=== PATIENT | female | born 1975 | race African-American/Black ===

== ENCOUNTER 2016-10-31 12:27 | Inpatient (IN) | payer BC ==
[2016-10-31] MEDS: DILAUDID IVP PRN ×3 (14:21→22:15)
[2016-10-31] MEDS: PROTONIX INJ 40 MG VIAL IVP SCH (14:23)
[2016-10-31] MEDS: NS 1000 ML 1,000 ML IV SCH ×2 (14:24→21:48)
[2016-10-31] MEDS: PEPCID 20 MG IV PREMIX* 20 MG/50 ML BAG IV SCH ×2 (14:24→21:49)
[2016-10-31] MEDS: CIPRO IV 400 MG PREMIX* 400 MG/200 ML IV.SOLN. IV SCH ×2 (14:26→21:48)
[2016-10-31 14:36] VITALS: BMI 35.1
[2016-10-31] MEDS: ZOSYN VIAL 3.375 GM 3.375 GM in NS 100 ML IV + SPIKE MINIBAG* 100 ML IV SCH ×2 (14:44→23:13)
[2016-10-31 15:06] LABS: BASOPHILS # (AUTO) 0.1 X10^3/uL (0.0-0.1); BASOPHILS % (AUTO) 0.7 % (0.2-1.0); EOSINOPHILS % (AUTO) 0.4 % (0.9-2.9); HEMATOCRIT 32.1 % (36.0-47.0); HEMOGLOBIN 9.9 g/dL (12.0-16.0); LYMPHOCYTES # (AUTO) 1.8 X10^3/uL (1.3-2.9); LYMPHOCYTES % (AUTO) 14.2 % (21.0-51.0); MEAN CORPUSCULAR HEMOGLOBIN 21.8 pg (27.0-34.0); MEAN CORPUSCULAR HGB CONC 30.9 g/dL (33.0-35.0); MEAN CORPUSCULAR VOLUME 70.5 fL (80.0-100.0); MEAN PLATELET VOLUME 8.3 fL (7.4-11.0); MONOCYTES # (AUTO) 0.6 x10^3/uL (0.3-0.8); MONOCYTES % (AUTO) 5.1 % (0.0-13.0); NEUTROPHILS # (AUTO) 10.1 x10^3/uL (2.2-4.8); NEUTROPHILS % (AUTO) 79.6 % (42.0-75.0); PLATELET COUNT 377 X10^3/uL (150.0-450.0); RED BLOOD COUNT 4.56 X10^6/uL (3.5-5.4); RED CELL DISTRIBUTION WIDTH 15.9 % (11.6-16.5); WHITE BLOOD COUNT 12.6 X10^3/uL (3.6-10.0)
[2016-10-31 15:19] LABS: ALANINE AMINOTRANSFERASE 20 Units/L (12-78); ALBUMIN 3.4 g/dL (3.4-5.0); ALKALINE PHOSPHATASE 120 Units/L (46-116); ASPARTATE AMINO TRANSFERASE 12 Units/L (15-37); BLOOD UREA NITROGEN 22 mg/dL (7-18); CARBON DIOXIDE 26.4 mmol/L (21-32); CHLORIDE 95 mmol/L (98-107); COR NA(FOR HYPERGLY) 141 mmol/L (136-145); GLUCOSE 442 mg/dL (65-99); SODIUM 133 mmol/L (136-145); TOTAL PROTEIN 8.8 g/dL (6.4-8.2); eGFR BLACK RACES > 60 (>60); eGFR NON BLACK RACES 52 (>60)
[2016-10-31 15:22] LABS: HYPOCHROMASIA 1+; PLATELET MORPHOLOGY COMMENT NORMAL (NORMAL)
[2016-10-31 16:07] LABS: HEMOGLOBIN A1C 12.9 % (4.5-6.2)
[2016-10-31] MEDS: HUMULIN R SUBCUT PRN ×2 (16:41→23:12)
--- NOTE | 2016-10-31 17:04 | RAD ---
HISTORY: Shortness of breath Study: AP chest Comparison:NONE Findings: The lungs are clear. No consolidation. There are no pleural effusions. The rojas and cardiomediastinal silhouette appear normal. IMPRESSION: 1. No radiographic evidence of an acute cardiopulmonary process. Reported By:
[2016-10-31 19:20] LABS: BILIRUBIN,URINE NEGATIVE (NEGATIVE); BLOOD/HEMOGLOBIN,URINE 2+ (NEGATIVE); GLUCOSE, URINE 4+ (NEGATIVE); KETONES,URINE NEGATIVE (NEGATIVE); LEUKOCYTE ESTERASE ,URINE NEGATIVE (NEGATIVE); NITRITES,URINE NEGATIVE (NEGATIVE); PROTEIN,URINE 3+ (NEGATIVE); UROBILINOGEN,URINE NORMAL (NORMAL)
[2016-10-31 19:36] LABS: APPEARANCE,URINE CLEAR (CLEAR); COLOR,URINE YELLOW (YELLOW)
[2016-10-31 19:37] LABS: BACTERIA,URINE NEGATIVE /HPF (NEGATIVE); RBC,URINE RARE /HPF (NEGATIVE); SQUAMOUS EPITHELIAL CELL,UR FEW /HPF (NEGATIVE)
--- NOTE | 2016-10-31 20:36 | DR.UPDATE ---
H&P Update History and Physical Update: HISTORY AND PHYSICAL UPDATE FOR ADMISSION 10/31/16 MS. HOFFMAN'S H&P WAS COMPLETED IN OUR OFFICE PRIOR TO ARRIVAL. SHE HAS BEEN SEEN AND EXAMINED WITH NO CHANGES NOTED.
[2016-11-01] MEDS: DILAUDID IVP PRN ×5 (03:39→21:25)
[2016-11-01] MEDS: ZOSYN VIAL 3.375 GM 3.375 GM in NS 100 ML IV + SPIKE MINIBAG* 100 ML IV SCH ×3 (05:23→21:25)
[2016-11-01] MEDS: NS 1000 ML 1,000 ML IV SCH ×4 (05:24→21:31)
[2016-11-01] MEDS: HUMULIN R SUBCUT PRN ×2 (05:47→12:49)
[2016-11-01 05:50] LABS: BASOPHILS # (AUTO) 0.1 X10^3/uL (0.0-0.1); BASOPHILS % (AUTO) 0.8 % (0.2-1.0); EOSINOPHILS # (AUTO) 0.1 x10^3/uL (0.0-0.2); HEMOGLOBIN 8.5 g/dL (12.0-16.0); LYMPHOCYTES # (AUTO) 1.9 X10^3/uL (1.3-2.9); LYMPHOCYTES % (AUTO) 18.8 % (21.0-51.0); MEAN CORPUSCULAR HEMOGLOBIN 22.1 pg (27.0-34.0); MEAN CORPUSCULAR HGB CONC 31.4 g/dL (33.0-35.0); MEAN CORPUSCULAR VOLUME 70.5 fL (80.0-100.0); MEAN PLATELET VOLUME 8.4 fL (7.4-11.0); MONOCYTES # (AUTO) 0.8 x10^3/uL (0.3-0.8); MONOCYTES % (AUTO) 7.7 % (0.0-13.0); NEUTROPHILS # (AUTO) 7.2 x10^3/uL (2.2-4.8); NEUTROPHILS % (AUTO) 71.7 % (42.0-75.0); PLATELET COUNT 310 X10^3/uL (150.0-450.0); RED BLOOD COUNT 3.82 X10^6/uL (3.5-5.4); RED CELL DISTRIBUTION WIDTH 15.4 % (11.6-16.5)
[2016-11-01 05:51] LABS: ALANINE AMINOTRANSFERASE 13 Units/L (12-78); ALBUMIN 2.7 g/dL (3.4-5.0); ALKALINE PHOSPHATASE 92 Units/L (46-116); ASPARTATE AMINO TRANSFERASE 13 Units/L (15-37); BLOOD UREA NITROGEN 20 mg/dL (7-18); CALCIUM 8.3 mg/dL (8.5-10.1); CARBON DIOXIDE 26.1 mmol/L (21-32); CHLORIDE 104 mmol/L (98-107); COR CA(FOR HYPOALB) 9.3 mg/dL (8.5-10.1); COR NA(FOR HYPERGLY) 142 mmol/L (136-145); GLUCOSE 198 mg/dL (65-99); SODIUM 140 mmol/L (136-145); TOTAL PROTEIN 7.2 g/dL (6.4-8.2); eGFR BLACK RACES > 60 (>60); eGFR NON BLACK RACES 52 (>60)
[2016-11-01 06:10] LABS: HYPOCHROMASIA 1+; MICROCYTOSIS 1+; PLATELET MORPHOLOGY COMMENT NORMAL (NORMAL)
[2016-11-01] MEDS ORDERED: NS 100 ML IV 100 ML IV ONE (06:28)
--- NOTE | 2016-11-01 07:52 | CT ---
HISTORY: Left lower quadrant pain Study: CT abdomen pelvis with contrast Comparison: October 29, 2016 Technique: Axial post-contrast images with coronal and sagittal reformats. Dose reduction procedures were used with MA/kv adjusted for body size. Findings: The lung bases are clear. The liver, spleen, adrenal glands, and pancreas are within normal limits. No opaque stones are visualized in a dilated gallbladder. The kidneys are unobstructed and without s tones or masses. No ureteral calculi are identified. The appendix is surgically absent by history. T he abdominal aorta is normal. There are no enlarged intraperitoneal or retroperitoneal lymph nodes p resent. Nonenlarged para-aortic nodes are present. They are of uncertain etiology and significance. There are no findings suggestive of diverticulitis or colitis. Examination of the pelvis demonstrate s postsurgical changes to be present. Surgical clips and sutures are identified. There appears to be a complex cystic lesion in the left adnexum. This could represent a multi septated cystic lesion robles ch as a complicated cyst, cystadenoma or cystadenocarcinoma or could possibly represent a hydrosalpi nx. Postsurgical fluid loculation is also a possibility. Pelvic sonography and possibly MRI would be of further diagnostic value. No pelvic fluid or pelvic lymphadenopathy is identified. No definite b ladder abnormality is identified. No significant skeletal abnormality is identified. IMPRESSION: Ill-defined septated cystic lesion in the left adnexum possibly representing a complicated cyst, hyd rosalpinx, cyst adenoma, or cystadenocarcinoma. Postoperative fluid loculations are also possible co nsidering the evidence for prior pelvic surgery. Ultrasound may be of further diagnostic value. MRI may also be required for better evaluation of this lesion. Reported By:
[2016-11-01] MEDS: CIPRO IV 400 MG PREMIX* 400 MG/200 ML IV.SOLN. IV SCH ×2 (09:05→21:25)
[2016-11-01] MEDS: PROTONIX INJ 40 MG VIAL IVP SCH (09:05)
[2016-11-01] MEDS: PEPCID 20 MG IV PREMIX* 20 MG/50 ML BAG IV SCH ×2 (09:05→21:25)
--- NOTE | 2016-11-01 14:21 | PCM.PROG ---
Progress Note - Progress Note for Day of Date: 11/01/16 - Subjective Subjective: PATIENT CONTINUES WITH LLQ ABDOMINAL PAIN THIS MORNING. ABDOMEN IS SOFT, TENDER. PATIENT REPORTS ABDOMINAL PAIN CONTINUES TO BE SEVERE, RATING PAIN AN 8 ON A 1-TO-10 PAIN SCALE. PATIENT IS RECEIVING IV DILAUDID AND HAS RECEIVED IT 5 TIMES SINCE ADMISSION. SHE IS ALSO TREATED WITH IV CIPRO, ZOSYN, PEPCID, PROTONIX, ZOFRAN, AND IV FLUIDS. PATIENT HAD CT OF ABD/PELVIS WITH CONTRAST THIS MORNING AND IT REPORTS: ILL-DEFINED SEPTATED CYSTIC LESION IN THE LEFT ADNEXUM POSSIBLY REPRESENTING A COMPLICATED CYST, HYDROSALPINX, CYST ADENOMA, OR CYSTADENOCARCINOMA. WE DISCUSS REPORT WITH PATIENT WITH PLANS FOR MRI OF ABDOMEN. SHE VOICES UNDERSTANDING AND IS IN AGREEMENT. CBC WNL EXCEPT: H/H 8.5/27.0. CMP WNL EXCEPT: BUN/CREAT 20/1.20, GFR 52, GLUCOSE 198, CALCIUM 8.3, ALBUMIN 2.7. BLOOD CULTURES ARE PENDING. PATIENT AFEBRILE. WE WILL CONTINUE CURRENT TREATMENT AND OBTAIN AN MRI OF ABDOMEN TODAY. WE WILL FOLLOW UP IN AM WITH LABS. - Past Medical Family Social History Past Med/Fam/Surg Hx: No changes since H&P Allergies: Allergies No Known Drug Allergy Allergy (Verified 10/29/16 05:48) - Review of Systems ROS: No change since H&P - Vital Signs and I&O's Vital Signs: Temperature 98.4 F Pulse Rate [Right Brachial] 86 Pulse Rate [Left Brachial] 92 Respiratory Rate 18 Blood Pressure [Right Arm] 154/73 Blood Pressure [Left Arm] 173/80 Blood Pressure 141/72 O2 Sat by Pulse Oximetry 97 Intake and Output: Intake & Output 10/30/16 10/31/16 11/01/16 11/02/16 11:59 11:59 11:59 11:59 Intake Total 742 Output Total 1050 Balance -308 - Physical Exam Oriented: Normal, Time, Person, Place Eyes: Normal. negative: Blurred Vision, Diplopia, Discharge, Pain, Redness, Photophobia Ear: Normal. negative: Swelling, Ecchymosis, Hemotypanum, Abrasion, Laceration Nose: Normal. negative: Injected, Discharge, Blood Throat: Dry. negative: Tonsillar Hypertrophy, Exudate Respiratory: Normal Cardiovascular: Normal. negative: Murmur, Edema : Normal. negative: Dysuria, Hematuria, Frequency, Discharge, Bleeding, Auscultation: Bowel Sounds: Decreased. negative: Bruit Palpation: Normal. negative: Spleen Enlarged, Liver Enlarged, Mass Pulsatile Tenderness: LLQ, Severe. negative: Rebound, Guarding, Rigidity Skin: Decreased Turgur. negative: Diaphoresis, Wound, Bruising, Ecchymosis Musculoskeletal: Normal Psychiatric: Normal Mood Description: Calm, Appropriate Affect: Normal Speech Pattern: Clear, Appropriate - Laboratory and Diagnostics Result Diagrams: 11/01/16 03:25 11/01/16 03:25 Labs: Laboratory WBC 10.0 X10^3/uL (3.6-10.0) 11/01/16 03:25 RBC 3.82 X10^6/uL (3.5-5.4) 11/01/16 03:25 Hgb 8.5 g/dL (12.0-16.0) L 11/01/16 03:25 Hct 27.0 % (36.0-47.0) L 11/01/16 03:25 MCV 70.5 fL (80.0-100.0) L 11/01/16 03:25 MCH 22.1 pg (27.0-34.0) L 11/01/16 03:25 MCHC 31.4 g/dL (33.0-35.0) L 11/01/16 03:25 RDW 15.4 % (11.6-16.5) 11/01/16 03:25 Plt Count 310 X10^3/uL (150.0-450.0) 11/01/16 03:25 Plt Count Comment Adequate (ADEQUATE) 11/01/16 03:25 MPV 8.4 fL (7.4-11.0) 11/01/16 03:25 Neut % 71.7 % (42.0-75.0) 11/01/16 03:25 Lymph % 18.8 % (21.0-51.0) L 11/01/16 03:25 [place] % 7.7 % (0.0-13.0) 11/01/16 03:25 Eos % 1.0 % (0.9-2.9) 11/01/16 03:25 Baso % 0.8 % (0.2-1.0) 11/01/16 03:25 Neut # 7.2 x10^3/uL (2.2-4.8) H 11/01/16 03:25 Lymph # 1.9 X10^3/uL (1.3-2.9) 11/01/16 03:25 [place] # 0.8 x10^3/uL (0.3-0.8) 11/01/16 03:25 Eos # 0.1 x10^3/uL (0.0-0.2) 11/01/16 03:25 Baso # 0.1 X10^3/uL (0.0-0.1) 11/01/16 03:25 Absolute Nucleated RBC 0.0 /100WBC 11/01/16 03:25 Plt Morphology Comment Normal (NORMAL) 11/01/16 03:25 RBC Morphology Abnormal (NORMAL) A 11/01/16 03:25 Hypochromasia 1+ A 11/01/16 03:25 Microcytosis 1+ A 11/01/16 03:25 Sodium 140 mmol/L (136-145) 11/01/16 03:25 Corrected Sodium 142 mmol/L (136-145) 11/01/16 03:25 Potassium 3.6 mmol/L (3.5-5.1) 11/01/16 03:25 Chloride 104 mmol/L (98-107) 11/01/16 03:25 Carbon Dioxide 26.1 mmol/L (21-32) 11/01/16 03:25 BUN 20 mg/dL (7-18) H 11/01/16 03:25 Creatinine 1.20 mg/dL (0.55-1.02) H 11/01/16 03:25 Est GFR (MDRD) Af Amer > 60 (>60) 11/01/16 03:25 Est GFR (MDRD) Non-Af 52 (>60) L 11/01/16 03:25 Glucose 198 mg/dL (65-99) H 11/01/16 03:25 Hemoglobin A1c 12.9 % (4.5-6.2) H 10/31/16 14:30 Calcium 8.3 mg/dL (8.5-10.1) L 11/01/16 03:25 Corrected Calcium 9.3 mg/dL (8.5-10.1) 11/01/16 03:25 Total Bilirubin 0.30 mg/dL (0.2-1.0) 11/01/16 03:25 AST 13 Units/L (15-37) L 11/01/16 03:25 ALT 13 Units/L (12-78) 11/01/16 03:25 Alkaline Phosphatase 92 Units/L (46-116) 11/01/16 03:25 Total Protein 7.2 g/dL (6.4-8.2) 11/01/16 03:25 Albumin 2.7 g/dL (3.4-5.0) L 11/01/16 03:25 Globulin 4.5 g/dL (2.5-4.5) 11/01/16 03:25 Albumin/Globulin Ratio 0.6 Ratio (1.1-2.1) L 11/01/16 03:25 Specimen Type Clean catch urine 10/31/16 19:12 Urine Color Yellow (YELLOW) 10/31/16 19:12 Urine Appearance Clear (CLEAR) 10/31/16 19:12 Urine pH 5.0 (5.0 - 8.0) 10/31/16 19:12 Ur Specific [place] 1.015 (1.000-1.030) 10/31/16 19:12 Urine Protein 3+ (NEGATIVE) 10/31/16 19:12 Urine Glucose (UA) 4+ (NEGATIVE) 10/31/16 19:12 Urine Ketones Negative (NEGATIVE) 10/31/16 19:12 Urine Occult Blood 2+ (NEGATIVE) 10/31/16 19:12 Urine Nitrite Negative (NEGATIVE) 10/31/16 19:12 Urine Bilirubin Negative (NEGATIVE) 10/31/16 19:12 Urine Urobilinogen Normal (NORMAL) 10/31/16 19:12 Ur Leukocyte Esterase Negative (NEGATIVE) 10/31/16 19:12 Urine RBC Rare /HPF (NEGATIVE) 10/31/16 19:12 Urine WBC Rare /HPF (NEGATIVE) 10/31/16 19:12 Ur Squamous Epith Cells Few /HPF (NEGATIVE) 10/31/16 19:12 Urine Bacteria Negative /HPF (NEGATIVE) 10/31/16 19:12 Ur Culture Indicated? No/not indicated 10/31/16 19:12 - Plan (1) Abdominal pain Status: Acute Qualifiers: Abdominal location: left lower quadrant Qualified Code(s): R10.32 - Left lower quadrant pain Plan: OBTAIN MRI OF ABDOMEN TODAY, CONTINUE ZOSYN, CIPRO, IV FLUIDS, DILAUDID, ZOFRAN, PEPCID, PROTONIX, MONITOR. (2) Leukocytosis Status: Acute Qualifiers: Leukocytosis type: L Plan: ABOVE. (3) Hyperglycemia Status: Acute Plan: CONTINUE OTBS, INSULIN R SLIDING SCALE, MONITOR. (4) Ovarian cyst Status: Acute Qualifiers: Laterality: left Qualified Code(s): N83.202 - Unspecified ovarian cyst, left side (5) UTI (urinary tract infection) Status: Acute Qualifiers: Urinary tract infection type: acute cystitis Hematuria presence: with hematuria Indwelling urinary catheter type: I Encounter type: E Qualified Code(s): N30.01 - Acute cystitis with hematuria Plan: CONTINUE IV ANTIBIOTICS, MONITOR. 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
[2016-11-01] MEDS: ZOFRAN INJ 4 MG VIAL IVP PRN (21:26)
[2016-11-02] MEDS: ZOFRAN INJ 4 MG VIAL IVP PRN (01:46)
[2016-11-02] MEDS: DILAUDID IVP PRN ×5 (01:47→21:47)
[2016-11-02 05:22] LABS: BASOPHILS # (AUTO) 0.1 X10^3/uL (0.0-0.1); BASOPHILS % (AUTO) 1.3 % (0.2-1.0); EOSINOPHILS # (AUTO) 0.2 x10^3/uL (0.0-0.2); EOSINOPHILS % (AUTO) 1.8 % (0.9-2.9); HEMATOCRIT 27.4 % (36.0-47.0); HEMOGLOBIN 8.6 g/dL (12.0-16.0); LYMPHOCYTES # (AUTO) 1.8 X10^3/uL (1.3-2.9); MEAN CORPUSCULAR HEMOGLOBIN 22.4 pg (27.0-34.0); MEAN CORPUSCULAR HGB CONC 31.4 g/dL (33.0-35.0); MEAN CORPUSCULAR VOLUME 71.2 fL (80.0-100.0); MEAN PLATELET VOLUME 8.5 fL (7.4-11.0); MONOCYTES # (AUTO) 0.5 x10^3/uL (0.3-0.8); MONOCYTES % (AUTO) 6.3 % (0.0-13.0); NEUTROPHILS % (AUTO) 69.6 % (42.0-75.0); PLATELET COUNT 316 X10^3/uL (150.0-450.0); RED BLOOD COUNT 3.85 X10^6/uL (3.5-5.4); RED CELL DISTRIBUTION WIDTH 16.2 % (11.6-16.5); WHITE BLOOD COUNT 8.6 X10^3/uL (3.6-10.0)
[2016-11-02] MEDS: NS 1000 ML 1,000 ML IV SCH ×3 (05:25→21:46)
[2016-11-02] MEDS: ZOSYN VIAL 3.375 GM 3.375 GM in NS 100 ML IV + SPIKE MINIBAG* 100 ML IV SCH ×3 (05:26→21:46)
[2016-11-02 05:34] LABS: ALANINE AMINOTRANSFERASE 16 Units/L (12-78); ALBUMIN 2.5 g/dL (3.4-5.0); ALKALINE PHOSPHATASE 80 Units/L (46-116); ASPARTATE AMINO TRANSFERASE 10 Units/L (15-37); BLOOD UREA NITROGEN 11 mg/dL (7-18); CALCIUM 8.3 mg/dL (8.5-10.1); CHLORIDE 108 mmol/L (98-107); COR CA(FOR HYPOALB) 9.5 mg/dL (8.5-10.1); COR NA(FOR HYPERGLY) 144 mmol/L (136-145); CREATININE 0.89 mg/dL (0.55-1.02); GLUCOSE 134 mg/dL (65-99); SODIUM 143 mmol/L (136-145); TOTAL PROTEIN 6.9 g/dL (6.4-8.2); eGFR BLACK RACES > 60 (>60); eGFR NON BLACK RACES > 60 (>60)
[2016-11-02 06:13] LABS: PLATELET MORPHOLOGY COMMENT NORMAL (NORMAL)
[2016-11-02 06:14] LABS: HYPOCHROMASIA 1+; MICROCYTOSIS 1+
[2016-11-02] MEDS: PROTONIX INJ 40 MG VIAL IVP SCH (08:37)
[2016-11-02] MEDS: PEPCID 20 MG IV PREMIX* 20 MG/50 ML BAG IV SCH ×2 (08:37→21:47)
[2016-11-02] MEDS: CIPRO IV 400 MG PREMIX* 400 MG/200 ML IV.SOLN. IV SCH ×2 (08:37→21:46)
--- NOTE | 2016-11-02 14:49 | MRI ---
MRI OF THE PELVIS WITHOUT AND WITH IV CONTRAST Clinical indication: Left adnexal lesion Procedure: Multiplanar multi sequence MRI of the pelvis was obtained with and without the administra tion of intravenous contrast according to standard departmental protocol. Comparisons: CT 11/01/2016, 10/29/2016, 11/21/2014. Ultrasound 10/29/2016 Findings: The uterus has multiple small fibroids within it. The endometrial stripe measures approximately 9 mm . Right ovary is grossly normal. The left ovary contains multiple cystic structures of differing sig nal intensity, 1 of which demonstrates intermediate intrinsic T1 signal . Overall the left ovary sena sures approximately 4.8 x 3.8 cm on series 1201, image 6 . Additionally there is adjacent somewhat l oculated pelvic fluid surrounding the right ovary. This measures approximately 10.1 x 4.9 cm on seri es 701, image 3. Impression: 1. Multi-cystic lesion involving the left ovary with varying degrees signal intensity. Epithelial ne oplasm such as mucinous cystadenoma is suspected. Surrounding loculated fluid may represent a the in clusion cyst which is associated with mucinous cystadenoma. Reported By:
--- NOTE | 2016-11-02 16:29 | PCM.PROG ---
Progress Note - Progress Note for Day of Date: 11/02/16 - Subjective Subjective: MRI OF PELVIS WAS OBTAINED AND REPORTS MULTI-CYSTIC LESION INVOLVING THE LEFT OVARY WITH VARYING DEGREES SIGNAL INTENSITY. PATIENT CONTINUES WITH LLQ ABDOMINAL PAIN THIS MORNING AND CONTINUES TO REQUIRE IV PAIN MEDICATION TO CONTROL PAIN. ABDOMEN IS SOFT, TENDER. CBC WNL EXCEPT: H/H 8.6/ 27.4. CMP WNL EXCEPT: CHL 108, GLUCOSE 134, CALCIUM 8.3, ALBUMIN 2.5. PRELIMINARY BLOOD CULTURES REPORT NO GROWTH. PATIENT AFEBRILE. WE WILL CONTINUE CURRENT TREATMENT AND FOLLOW UP IN AM WITH LABS. WE WILL START PATIENT ON A CLEAR LIQUID DIET AND MONITOR HOW WELL SHE TOLERATES IT. - Past Medical Family Social History Past Med/Fam/Surg Hx: No changes since H&P Allergies: Allergies No Known Drug Allergy Allergy (Verified 10/29/16 05:48) - Review of Systems ROS: No change since H&P - Vital Signs and I&O's Vital Signs: Temperature 98.3 F Pulse Rate [Right Brachial] 80 Pulse Rate [Left Brachial] 92 Respiratory Rate 20 Blood Pressure [Right Arm] 143/65 Blood Pressure [Left Arm] 173/80 Blood Pressure 141/72 O2 Sat by Pulse Oximetry 100 Intake and Output: Intake & Output 10/31/16 11/01/16 11/02/16 11/03/16 11:59 11:59 11:59 11:59 Intake Total 241 879 6353 Output Total 1050 1100 600 Balance -236 -471 1563 - Physical Exam Oriented: Normal, Time, Person, Place Eyes: Normal. negative: Blurred Vision, Diplopia, Discharge, Pain, Redness, Photophobia Ear: Normal. negative: Swelling, Ecchymosis, Hemotypanum, Abrasion, Laceration Nose: Normal. negative: Injected, Discharge, Blood Throat: Dry. negative: Tonsillar Hypertrophy, Exudate Respiratory: Normal Cardiovascular: Normal. negative: Murmur, Edema : Normal. negative: Dysuria, Hematuria, Frequency, Discharge, Bleeding, Auscultation: Bowel Sounds: Decreased. negative: Bruit Palpation: Normal. negative: Spleen Enlarged, Liver Enlarged, Mass Pulsatile Tenderness: LLQ, Moderate. negative: Rebound, Guarding, Rigidity Skin: Decreased Turgur. negative: Diaphoresis, Wound, Bruising, Ecchymosis Musculoskeletal: Normal Psychiatric: Normal Mood Description: Calm, Appropriate Affect: Normal Speech Pattern: Clear, Appropriate - Laboratory and Diagnostics Result Diagrams: 11/02/16 03:30 11/02/16 03:30 Labs: 10/31/16 14:30 Blood Blood Culture - Preliminary 10/31/16 14:45 Blood Blood Culture - Preliminary Laboratory WBC 8.6 X10^3/uL (3.6-10.0) 11/02/16 03:30 RBC 3.85 X10^6/uL (3.5-5.4) 11/02/16 03:30 Hgb 8.6 g/dL (12.0-16.0) L 11/02/16 03:30 Hct 27.4 % (36.0-47.0) L 11/02/16 03:30 MCV 71.2 fL (80.0-100.0) L 11/02/16 03:30 MCH 22.4 pg (27.0-34.0) L 11/02/16 03:30 MCHC 31.4 g/dL (33.0-35.0) L 11/02/16 03:30 RDW 16.2 % (11.6-16.5) 11/02/16 03:30 Plt Count 316 X10^3/uL (150.0-450.0) 11/02/16 03:30 Plt Count Comment Adequate (ADEQUATE) 11/02/16 03:30 MPV 8.5 fL (7.4-11.0) 11/02/16 03:30 Neut % 69.6 % (42.0-75.0) 11/02/16 03:30 Lymph % 21.0 % (21.0-51.0) 11/02/16 03:30 [place] % 6.3 % (0.0-13.0) 11/02/16 03:30 Eos % 1.8 % (0.9-2.9) 11/02/16 03:30 Baso % 1.3 % (0.2-1.0) H 11/02/16 03:30 Neut # 6.0 x10^3/uL (2.2-4.8) H 11/02/16 03:30 Lymph # 1.8 X10^3/uL (1.3-2.9) 11/02/16 03:30 [place] # 0.5 x10^3/uL (0.3-0.8) 11/02/16 03:30 Eos # 0.2 x10^3/uL (0.0-0.2) 11/02/16 03:30 Baso # 0.1 X10^3/uL (0.0-0.1) 11/02/16 03:30 Absolute Nucleated RBC 0.0 /100WBC 11/02/16 03:30 Plt Morphology Comment Normal (NORMAL) 11/02/16 03:30 RBC Morphology Abnormal (NORMAL) A 11/02/16 03:30 Hypochromasia 1+ A 11/02/16 03:30 Microcytosis 1+ A 11/02/16 03:30 Sodium 143 mmol/L (136-145) 11/02/16 03:30 Corrected Sodium 144 mmol/L (136-145) 11/02/16 03:30 Potassium 3.6 mmol/L (3.5-5.1) 11/02/16 03:30 Chloride 108 mmol/L (98-107) H 11/02/16 03:30 Carbon Dioxide 24.0 mmol/L (21-32) 11/02/16 03:30 BUN 11 mg/dL (7-18) 11/02/16 03:30 Creatinine 0.89 mg/dL (0.55-1.02) 11/02/16 03:30 Est GFR (MDRD) Af Amer > 60 (>60) 11/02/16 03:30 Est GFR (MDRD) Non-Af > 60 (>60) 11/02/16 03:30 Glucose 134 mg/dL (65-99) H 11/02/16 03:30 Hemoglobin A1c 12.9 % (4.5-6.2) H 10/31/16 14:30 Calcium 8.3 mg/dL (8.5-10.1) L 11/02/16 03:30 Corrected Calcium 9.5 mg/dL (8.5-10.1) 11/02/16 03:30 Total Bilirubin 0.20 mg/dL (0.2-1.0) 11/02/16 03:30 AST 10 Units/L (15-37) L 11/02/16 03:30 ALT 16 Units/L (12-78) 11/02/16 03:30 Alkaline Phosphatase 80 Units/L (46-116) 11/02/16 03:30 Total Protein 6.9 g/dL (6.4-8.2) 11/02/16 03:30 Albumin 2.5 g/dL (3.4-5.0) L 11/02/16 03:30 Globulin 4.4 g/dL (2.5-4.5) 11/02/16 03:30 Albumin/Globulin Ratio 0.6 Ratio (1.1-2.1) L 11/02/16 03:30 Specimen Type Clean catch urine 10/31/16 19:12 Urine Color Yellow (YELLOW) 10/31/16 19:12 Urine Appearance Clear (CLEAR) 10/31/16 19:12 Urine pH 5.0 (5.0 - 8.0) 10/31/16 19:12 Ur Specific [place] 1.015 (1.000-1.030) 10/31/16 19:12 Urine Protein 3+ (NEGATIVE) 10/31/16 19:12 Urine Glucose (UA) 4+ (NEGATIVE) 10/31/16 19:12 Urine Ketones Negative (NEGATIVE) 10/31/16 19:12 Urine Occult Blood 2+ (NEGATIVE) 10/31/16 19:12 Urine Nitrite Negative (NEGATIVE) 10/31/16 19:12 Urine Bilirubin Negative (NEGATIVE) 10/31/16 19:12 Urine Urobilinogen Normal (NORMAL) 10/31/16 19:12 Ur Leukocyte Esterase Negative (NEGATIVE) 10/31/16 19:12 Urine RBC Rare /HPF (NEGATIVE) 10/31/16 19:12 Urine WBC Rare /HPF (NEGATIVE) 10/31/16 19:12 Ur Squamous Epith Cells Few /HPF (NEGATIVE) 10/31/16 19:12 Urine Bacteria Negative /HPF (NEGATIVE) 10/31/16 19:12 Ur Culture Indicated? No/not indicated 10/31/16 19:12 - Plan (1) Abdominal pain Status: Acute Qualifiers: Abdominal location: left lower quadrant Qualified Code(s): R10.32 - Left lower quadrant pain Plan: CONTINUE ZOSYN, CIPRO, IV FLUIDS, DILAUDID, ZOFRAN, PEPCID, PROTONIX, MONITOR. (2) Leukocytosis Status: Acute Qualifiers: Leukocytosis type: L Plan: ABOVE. (3) Hyperglycemia Status: Acute Plan: CONTINUE OTBS, INSULIN R SLIDING SCALE, MONITOR. (4) Ovarian cyst Status: Acute Qualifiers: Laterality: left Qualified Code(s): N83.202 - Unspecified ovarian cyst, left side (5) UTI (urinary tract infection) Status: Acute Qualifiers: Urinary tract infection type: acute cystitis Hematuria presence: with hematuria Indwelling urinary catheter type: I Encounter type: E Qualified Code(s): N30.01 - Acute cystitis with hematuria Plan: CONTINUE IV ANTIBIOTICS, MONITOR. 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
[2016-11-02] MEDS: SNACK - Diabetic Appropriate PO SCH (20:00)
[2016-11-03 05:49] LABS: ALANINE AMINOTRANSFERASE 17 Units/L (12-78); ALBUMIN 2.4 g/dL (3.4-5.0); ALKALINE PHOSPHATASE 78 Units/L (46-116); ASPARTATE AMINO TRANSFERASE 11 Units/L (15-37); BLOOD UREA NITROGEN 6 mg/dL (7-18); CALCIUM 8.2 mg/dL (8.5-10.1); CARBON DIOXIDE 25.1 mmol/L (21-32); CHLORIDE 107 mmol/L (98-107); COR CA(FOR HYPOALB) 9.5 mg/dL (8.5-10.1); CREATININE 0.84 mg/dL (0.55-1.02); GLUCOSE 100 mg/dL (65-99); SODIUM 141 mmol/L (136-145); TOTAL PROTEIN 6.9 g/dL (6.4-8.2); eGFR BLACK RACES > 60 (>60); eGFR NON BLACK RACES > 60 (>60)
[2016-11-03] MEDS: NS 1000 ML 1,000 ML IV SCH ×3 (06:12→21:56)
[2016-11-03] MEDS: ZOSYN VIAL 3.375 GM 3.375 GM in NS 100 ML IV + SPIKE MINIBAG* 100 ML IV SCH ×3 (06:13→21:56)
[2016-11-03 06:14] LABS: BASOPHILS # (AUTO) 0.1 X10^3/uL (0.0-0.1); BASOPHILS % (AUTO) 0.9 % (0.2-1.0); EOSINOPHILS # (AUTO) 0.2 x10^3/uL (0.0-0.2); EOSINOPHILS % (AUTO) 2.4 % (0.9-2.9); HEMATOCRIT 27.8 % (36.0-47.0); HEMOGLOBIN 8.6 g/dL (12.0-16.0); LYMPHOCYTES # (AUTO) 1.9 X10^3/uL (1.3-2.9); LYMPHOCYTES % (AUTO) 22.6 % (21.0-51.0); MEAN CORPUSCULAR HEMOGLOBIN 22.1 pg (27.0-34.0); MEAN CORPUSCULAR VOLUME 71.2 fL (80.0-100.0); MEAN PLATELET VOLUME 8.4 fL (7.4-11.0); MONOCYTES # (AUTO) 0.4 x10^3/uL (0.3-0.8); MONOCYTES % (AUTO) 4.8 % (0.0-13.0); NEUTROPHILS % (AUTO) 69.3 % (42.0-75.0); PLATELET COUNT 332 X10^3/uL (150.0-450.0); RED CELL DISTRIBUTION WIDTH 15.9 % (11.6-16.5); WHITE BLOOD COUNT 8.6 X10^3/uL (3.6-10.0)
[2016-11-03 06:41] LABS: HYPOCHROMASIA 1+; PLATELET MORPHOLOGY COMMENT NORMAL (NORMAL)
[2016-11-03] MEDS ORDERED: K-LYTE EFFERVESCENT PO PRN (06:44)
[2016-11-03] MEDS ORDERED: K-DUR TAB 20 MEQ PO PRN (06:44)
[2016-11-03] MEDS ORDERED: POTASSIUM CHLORIDE LIQ 20 MEQ UDC PO PRN (06:44)
[2016-11-03] MEDS ORDERED: K-RIDER 10 MEQ/NS 100 ML 10 MEQ/100 ML BAG IV PRN (06:44)
[2016-11-03] MEDS: DILAUDID IVP PRN ×3 (07:25→20:29)
[2016-11-03] MEDS: PEPCID 20 MG IV PREMIX* 20 MG/50 ML BAG IV SCH ×2 (08:37→21:55)
[2016-11-03] MEDS: PROTONIX INJ 40 MG VIAL IVP SCH (08:37)
[2016-11-03] MEDS: CIPRO IV 400 MG PREMIX* 400 MG/200 ML IV.SOLN. IV SCH ×2 (08:37→21:55)
[2016-11-03] MEDS: ALBUMIN HUMAN 25%- 100ML 100 ML IV SCH (11:19)
[2016-11-03] MEDS: COLACE CAP 100 MG PO SCH ×2 (11:20→21:57)
[2016-11-03] MEDS: MILK OF MAGNESIA PO SCH ×4 (11:20→21:55)
[2016-11-03] MEDS ORDERED: MIRALAX POWDER (1 DOSE 17GM) PO SCH (21:00)
[2016-11-03] MEDS: SNACK - Diabetic Appropriate PO SCH (21:57)
[2016-11-04] MEDS: DILAUDID IVP PRN ×5 (00:37→17:30)
[2016-11-04] MEDS ORDERED: VALIUM PO PRN (01:10)
[2016-11-04] MEDS: ZOSYN VIAL 3.375 GM 3.375 GM in NS 100 ML IV + SPIKE MINIBAG* 100 ML IV SCH ×2 (05:01→13:36)
[2016-11-04] MEDS: NS 1000 ML 1,000 ML IV SCH (05:08)
[2016-11-04 06:12] LABS: BASOPHILS # (AUTO) 0.1 X10^3/uL (0.0-0.1); BASOPHILS % (AUTO) 0.8 % (0.2-1.0); EOSINOPHILS # (AUTO) 0.2 x10^3/uL (0.0-0.2); EOSINOPHILS % (AUTO) 1.8 % (0.9-2.9); HEMATOCRIT 27.9 % (36.0-47.0); HEMOGLOBIN 8.8 g/dL (12.0-16.0); LYMPHOCYTES # (AUTO) 1.4 X10^3/uL (1.3-2.9); LYMPHOCYTES % (AUTO) 15.2 % (21.0-51.0); MEAN CORPUSCULAR HEMOGLOBIN 22.4 pg (27.0-34.0); MEAN CORPUSCULAR HGB CONC 31.7 g/dL (33.0-35.0); MEAN CORPUSCULAR VOLUME 70.6 fL (80.0-100.0); MEAN PLATELET VOLUME 8.1 fL (7.4-11.0); MONOCYTES # (AUTO) 0.4 x10^3/uL (0.3-0.8); MONOCYTES % (AUTO) 4.3 % (0.0-13.0); NEUTROPHILS # (AUTO) 7.4 x10^3/uL (2.2-4.8); NEUTROPHILS % (AUTO) 77.9 % (42.0-75.0); PLATELET COUNT 359 X10^3/uL (150.0-450.0); RED BLOOD COUNT 3.95 X10^6/uL (3.5-5.4); RED CELL DISTRIBUTION WIDTH 15.8 % (11.6-16.5); WHITE BLOOD COUNT 9.5 X10^3/uL (3.6-10.0)
[2016-11-04 06:33] LABS: ALANINE AMINOTRANSFERASE 20 Units/L (12-78); ALBUMIN 2.4 g/dL (3.4-5.0); ALKALINE PHOSPHATASE 82 Units/L (46-116); ASPARTATE AMINO TRANSFERASE 17 Units/L (15-37); BLOOD UREA NITROGEN 4 mg/dL (7-18); CALCIUM 8.1 mg/dL (8.5-10.1); CARBON DIOXIDE 25.3 mmol/L (21-32); CHLORIDE 104 mmol/L (98-107); COR CA(FOR HYPOALB) 9.4 mg/dL (8.5-10.1); COR NA(FOR HYPERGLY) 139 mmol/L (136-145); CREATININE 0.74 mg/dL (0.55-1.02); GLUCOSE 167 mg/dL (65-99); SODIUM 137 mmol/L (136-145); TOTAL PROTEIN 6.8 g/dL (6.4-8.2); eGFR BLACK RACES > 60 (>60); eGFR NON BLACK RACES > 60 (>60)
[2016-11-04 07:35] LABS: HYPOCHROMASIA 1+; PLATELET MORPHOLOGY COMMENT NORMAL (NORMAL)
[2016-11-04] MEDS: PROTONIX INJ 40 MG VIAL IVP SCH (08:46)
[2016-11-04] MEDS: MILK OF MAGNESIA PO SCH ×3 (08:46→17:17)
[2016-11-04] MEDS: COLACE CAP 100 MG PO SCH (08:46)
[2016-11-04] MEDS: PEPCID 20 MG IV PREMIX* 20 MG/50 ML BAG IV SCH (08:46)
[2016-11-04] MEDS: ALBUMIN HUMAN 25%- 100ML 100 ML IV SCH (08:47)
[2016-11-04] MEDS: CIPRO IV 400 MG PREMIX* 400 MG/200 ML IV.SOLN. IV SCH (08:47)
[2016-11-04] MEDS: ZOFRAN INJ 4 MG VIAL IVP PRN (13:37)
--- NOTE | 2016-11-04 13:49 | RAD ---
HISTORY: 41-year-old female with constipation and abdominal pain. Study: Abdominal radiographs. Comparison: CT abdomen pelvis November 01, 2016. Findings: Evaluation of the abdomen demonstrates a nonobstructive bowel gas pattern with stool and gas through out the colon. Retained contrast within the rectal wall consistent with recent CT. No pathological soft tissue mass or calcification can be observed. The bony structures are grossly intact. IMPRESSION: 1. Nonobstructive bowel gas pattern. Reported By:
[2016-11-04 16:01] VITALS: BP 186/83
--- NOTE | 2016-11-04 16:25 | PCM.PROG ---
Progress Note - Progress Note for Day of Date: 11/03/16 - Subjective Subjective: PATIENT CONTINUES WITH SEVERE LLQ ABDOMINAL PAIN THIS MORNING AND CONTINUES TO REQUIRE IV PAIN MEDICATION TO CONTROL PAIN. ABDOMEN IS SOFT, TENDER. PATIENT IS NOT TOLERATING FOOD WELL. WE DISCUSSED MRI REPORT WITH POSSIBILITY OF A CANCEROUS CYST ON THE LEFT OVARY WITH PLANS TO CONSULT DR. HYATT, ONCOLOGY. PATIENT VOICES UNDERSTANDING AND IS IN AGREEMENT WITH PLANS. CBC WNL EXCEPT: H/H 8.6/27.8. CMP WNL EXCEPT: POTASSIUM 3.4, GLUCOSE 100, CALCIUM 8.2, ALBUMIN 2.4. PATIENT AFEBRILE. PATIENT HASN'T HAD A BOWEL MOVEMENT IN SEVERAL DAYS, SO WE WILL START MIRALAX, MILK OF MAGNESIA, AND COLACE. WE WILL ALSO START ALBUMIN, DECREASE IV FLUIDS TO 75MLS/HR, CONSULT DR. HYATT, AND OBTAIN A CA-125. WE WILL CONTINUE TO MONITOR AND FOLLOW UP IN AM WITH LABS. - Past Medical Family Social History Past Med/Fam/Surg Hx: No changes since H&P Allergies: Allergies No Known Drug Allergy Allergy (Verified 10/29/16 05:48) - Review of Systems ROS: No change since H&P - Vital Signs and I&O's Vital Signs: Temperature 98.1 F Pulse Rate [Right Brachial] 82 Pulse Rate [Left Brachial] 75 Respiratory Rate 20 Blood Pressure [Right Arm] 186/83 Blood Pressure [Left Arm] 141/73 Blood Pressure 141/72 O2 Sat by Pulse Oximetry 97 Intake and Output: Intake & Output 11/02/16 11/03/16 11/04/16 11/05/16 11:59 11:59 11:59 11:59 Intake Total 415 6934 4751 1550 Output Total 1100 1350 1400 Balance -688 9772 4453 1550 - Physical Exam Oriented: Normal, Time, Person, Place Eyes: Normal. negative: Blurred Vision, Diplopia, Discharge, Pain, Redness, Photophobia Ear: Normal. negative: Swelling, Ecchymosis, Hemotypanum, Abrasion, Laceration Nose: Normal. negative: Injected, Discharge, Blood Throat: Dry. negative: Tonsillar Hypertrophy, Exudate Respiratory: Normal Cardiovascular: Normal. negative: Murmur, Edema : Normal. negative: Dysuria, Hematuria, Frequency, Discharge, Bleeding, Auscultation: Bowel Sounds: Decreased. negative: Bruit Palpation: Normal. negative: Spleen Enlarged, Liver Enlarged, Mass Pulsatile Tenderness: LLQ, Severe. negative: Rebound, Guarding, Rigidity Skin: Normal. negative: Diaphoresis, Wound, Bruising, Ecchymosis Musculoskeletal: Normal Psychiatric: Normal Mood Description: Calm, Appropriate Affect: Normal Speech Pattern: Clear, Appropriate - Laboratory and Diagnostics Result Diagrams: 11/04/16 05:30 11/04/16 05:30 Labs: 10/31/16 14:30 Blood Blood Culture - Preliminary 10/31/16 14:45 Blood Blood Culture - Preliminary Laboratory WBC 9.5 X10^3/uL (3.6-10.0) 11/04/16 05:30 RBC 3.95 X10^6/uL (3.5-5.4) 11/04/16 05:30 Hgb 8.8 g/dL (12.0-16.0) L 11/04/16 05:30 Hct 27.9 % (36.0-47.0) L 11/04/16 05:30 MCV 70.6 fL (80.0-100.0) L 11/04/16 05:30 MCH 22.4 pg (27.0-34.0) L 11/04/16 05:30 MCHC 31.7 g/dL (33.0-35.0) L 11/04/16 05:30 RDW 15.8 % (11.6-16.5) 11/04/16 05:30 Plt Count 359 X10^3/uL (150.0-450.0) 11/04/16 05:30 Plt Count Comment Adequate (ADEQUATE) 11/04/16 05:30 MPV 8.1 fL (7.4-11.0) 11/04/16 05:30 Neut % 77.9 % (42.0-75.0) H 11/04/16 05:30 Lymph % 15.2 % (21.0-51.0) L 11/04/16 05:30 [place] % 4.3 % (0.0-13.0) 11/04/16 05:30 Eos % 1.8 % (0.9-2.9) 11/04/16 05:30 Baso % 0.8 % (0.2-1.0) 11/04/16 05:30 Neut # 7.4 x10^3/uL (2.2-4.8) H 11/04/16 05:30 Lymph # 1.4 X10^3/uL (1.3-2.9) 11/04/16 05:30 [place] # 0.4 x10^3/uL (0.3-0.8) 11/04/16 05:30 Eos # 0.2 x10^3/uL (0.0-0.2) 11/04/16 05:30 Baso # 0.1 X10^3/uL (0.0-0.1) 11/04/16 05:30 Absolute Nucleated RBC 0.0 /100WBC 11/04/16 05:30 Plt Morphology Comment Normal (NORMAL) 11/04/16 05:30 RBC Morphology Abnormal (NORMAL) A 11/04/16 05:30 Hypochromasia 1+ A 11/04/16 05:30 Microcytosis 1+ A 11/02/16 03:30 Sodium 137 mmol/L (136-145) 11/04/16 05:30 Corrected Sodium 139 mmol/L (136-145) 11/04/16 05:30 Potassium 3.5 mmol/L (3.5-5.1) 11/04/16 05:30 Chloride 104 mmol/L (98-107) 11/04/16 05:30 Carbon Dioxide 25.3 mmol/L (21-32) 11/04/16 05:30 BUN 4 mg/dL (7-18) L 11/04/16 05:30 Creatinine 0.74 mg/dL (0.55-1.02) 11/04/16 05:30 Est GFR (MDRD) Af Amer > 60 (>60) 11/04/16 05:30 Est GFR (MDRD) Non-Af > 60 (>60) 11/04/16 05:30 Glucose 167 mg/dL (65-99) H 11/04/16 05:30 Hemoglobin A1c 12.9 % (4.5-6.2) H 10/31/16 14:30 Calcium 8.1 mg/dL (8.5-10.1) L 11/04/16 05:30 Corrected Calcium 9.4 mg/dL (8.5-10.1) 11/04/16 05:30 Total Bilirubin 0.20 mg/dL (0.2-1.0) 11/04/16 05:30 AST 17 Units/L (15-37) 11/04/16 05:30 ALT 20 Units/L (12-78) 11/04/16 05:30 Alkaline Phosphatase 82 Units/L (46-116) 11/04/16 05:30 Total Protein 6.8 g/dL (6.4-8.2) 11/04/16 05:30 Albumin 2.4 g/dL (3.4-5.0) L 11/04/16 05:30 Globulin 4.4 g/dL (2.5-4.5) 11/04/16 05:30 Albumin/Globulin Ratio 0.5 Ratio (1.1-2.1) L 11/04/16 05:30 Specimen Type Clean catch urine 10/31/16 19:12 Urine Color Yellow (YELLOW) 10/31/16 19:12 Urine Appearance Clear (CLEAR) 10/31/16 19:12 Urine pH 5.0 (5.0 - 8.0) 10/31/16 19:12 Ur Specific [place] 1.015 (1.000-1.030) 10/31/16 19:12 Urine Protein 3+ (NEGATIVE) 10/31/16 19:12 Urine Glucose (UA) 4+ (NEGATIVE) 10/31/16 19:12 Urine Ketones Negative (NEGATIVE) 10/31/16 19:12 Urine Occult Blood 2+ (NEGATIVE) 10/31/16 19:12 Urine Nitrite Negative (NEGATIVE) 10/31/16 19:12 Urine Bilirubin Negative (NEGATIVE) 10/31/16 19:12 Urine Urobilinogen Normal (NORMAL) 10/31/16 19:12 Ur Leukocyte Esterase Negative (NEGATIVE) 10/31/16 19:12 Urine RBC Rare /HPF (NEGATIVE) 10/31/16 19:12 Urine WBC Rare /HPF (NEGATIVE) 10/31/16 19:12 Ur Squamous Epith Cells Few /HPF (NEGATIVE) 10/31/16 19:12 Urine Bacteria Negative /HPF (NEGATIVE) 10/31/16 19:12 Ur Culture Indicated? No/not indicated 10/31/16 19:12 - Plan (1) Abdominal pain Status: Acute Qualifiers: Abdominal location: left lower quadrant Qualified Code(s): R10.32 - Left lower quadrant pain Plan: CONTINUE ZOSYN, CIPRO, IV FLUIDS, DILAUDID, ZOFRAN, PEPCID, PROTONIX, MONITOR. (2) Leukocytosis Status: Acute Qualifiers: Leukocytosis type: L Plan: ABOVE. (3) Ovarian cyst Status: Acute Qualifiers: Laterality: left Qualified Code(s): N83.202 - Unspecified ovarian cyst, left side Plan: CONSULT DR. HYATT, ONCOLOGY, MONITOR. (4) UTI (urinary tract infection) Status: Acute Qualifiers: Urinary tract infection type: acute cystitis Hematuria presence: with hematuria Indwelling urinary catheter type: I Encounter type: E Qualified Code(s): N30.01 - Acute cystitis with hematuria Plan: CONTINUE IV ANTIBIOTICS, MONITOR. 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
== END 2016-11-04 19:15 | disposition short-term general hospital (02) | DRG 392 ==
LOC: UNDOADMIN 12:27 → MED/SURG 12:27
PROVIDERS: ADMIT Internal Medicine; ATTEND Internal Medicine
DX: K57.92 Diverticulitis of intestine, part unspecified, without perforation or abscess without bleeding (principal); E78.4 Other hyperlipidemia; N30.01 Acute cystitis with hematuria; R10.32 Left lower quadrant pain; N83.202 Unspecified ovarian cyst, left side; E11.65 Type 2 diabetes mellitus with hyperglycemia; I10 Essential (primary) hypertension; R11.0 Nausea; D72.828 Other elevated white blood cell count; Z79.4 Long term (current) use of insulin; E03.8 Other specified hypothyroidism; Z87.19 Personal history of other diseases of the digestive system
CPT/HCPCS: 36415; 71010; 72197; 74000; 74177; 80053; 81001; 83036; 85025; 86316; 87040; 94760; A4216; A4222; C9113; P9047; S0028; J0744; J1815; J2405; J2543

== ENCOUNTER 2016-12-08 08:47 | Day surgery (SDC) | payer BC ==
[2016-12-08] MEDS ORDERED: D5 LR 1000 ML 1,000 ML IV ONE (09:24)
[2016-12-08] MEDS ORDERED: NS 1000 ML 1,000 ML ONE (10:31)
[2016-12-08] MEDS ORDERED: DIPRIVAN VIAL 20 ML ONE (11:19)
[2016-12-08] MEDS ORDERED: NORMODYNE INJ 20 MG VIAL ONE (11:44)
[2016-12-08 12:09] VITALS: BP 127/62
== END 2016-12-08 12:11 | disposition home or self-care (01) ==
LOC: SURG1 08:47
PROVIDERS: ATTEND Internal Medicine Gastroenterology
PROC: 0DJD8ZZ Inspection of Lower Intestinal Tract, Via Natural or Artificial Opening Endoscopic (ICD-10-PCS; principal; 2016-12-08 11:00)
PROC: 0DBE8ZX Excision of Large Intestine, Via Natural or Artificial Opening Endoscopic, Diagnostic (ICD-10-PCS; principal; 2016-12-08 11:00)
DX: R10.31 Right lower quadrant pain (principal); R10.32 Left lower quadrant pain; R19.4 Change in bowel habit; K64.8 Other hemorrhoids; Z90.49 Acquired absence of other specified parts of digestive tract
CPT/HCPCS: A4217; J3490; J7120

== ENCOUNTER 2017-06-03 13:36 | Inpatient (IN) | payer BC ==
[2017-06-03] MEDS ORDERED: DEMEROL INJ ONE (13:58)
[2017-06-03] MEDS ORDERED: PHENERGAN INJ 25 MG ONE (13:58)
[2017-06-03] MEDS ORDERED: DEMEROL INJ IVP ONE (14:05)
[2017-06-03] MEDS ORDERED: NS 1000 ML 1,000 ML IV ONE (14:05)
[2017-06-03] MEDS ORDERED: PHENERGAN INJ 25 MG IV ONE (14:05)
--- NOTE | 2017-06-03 14:11 | DR.GENAD ---
HPI - PCP Primary Care Physician: JUDY - Complaint/Symptoms Chief Complaint Doctors Comments: Patient is complaining of severe left lower abdominal pain that radiates down her left leg for the past two hours onset after waking up this am. Patient states the pain is 20 of 10 with the pain being sharp and worst when she moves. States her last bowel movement was yesterday and her last menstrual period was week ago. states she had similar pain two years ago when she had a perforation in her bowels. States she feel hot. She denies nausea, vomiting, cold or cough. States her legs hurt everwhere you touch them. She denies any recent trauma. Chief Complaint:: PT C/O LLQ PAIN THAT RADIATES DOWN INTO LT LEG THAT STARTED WHEN SHE WOKE UP THIS AM. PT STATES SHE HAS NOT DONE ANYTHING TO IT FOR IT TO HURT. PT STATES SHE HAS ALSO BEEN VOMITTING - Nurses notes reviewed Nurses Notes Review: Yes - Source History Provided: Patient - Mode of Arrival Mode of Arrival: Ambulatory - Timing Onset of Chief Complaint: 06/03/17 Came on: Suddenly - Duration Duration: Constant How lon Duration: Hours - Location Location: left lower abdominal pain - Severity Severity: Severe - Modifying Factors Worsens:: movement Improves:: nothing PMH - PMH Past Medical History: Yes Past Medical History: Diabetes, Hypertension Past Surgical History: Yes Surgical History: Abdominal Surgery - Family History History of Family Medical Conditions: Yes Family Medical History: Diabetes Mellitus, [place], Heart Failure, Hypertension - Social History Does any household member use tobacco: No Alcohol Use: None Do you use any recreational Drugs:: No Lives With: Family Lives Where: Home - infectious screening In the last 2 months have you had wt loss of >10#?: NO Have you had fever, night sweats or hemotysis?: No Have you traveled outside the country in the last 6 months?: No Isolation: Standard ROS - Review of Systems Constitutional: No Symptoms Reported, Loss of Appetite. negative: See HPI, Chills, Diaphoresis, Fever, Malaise, Weakness, Irritable, Fatigue, Other Eyes: No Symptoms Reported ENTM: No Symptoms Reported. negative: See HPI, Ear Pain, Ear Discharge, Pulling on Ears, Hearing Loss, Nose Pain, Nose Discharge, Epistaxis, Nose Congestion, Mouth Pain, Mouth Swelling, Loose Teeth, Drooling, Throat Pain, Throat Swelling, Ear Foreign Body Respiratoy: No Symptoms Reported. negative: See HPI, Productive Cough, Non- Productive Cough, Moist Cough, Dry Cough, Hacking Cough, Barking Cough, Brassy Cough, Orthopnea, Short of Breath, Stridor, Wheezing, Hemoptysis, Other Cardiovascular: No Symptoms Reported. negative: See HPI, Chest Pain, Edema, Palpitations, Syncope, Cyanosis, Skin Mottling, Other Gastrointestinal/Abdominal: No Symptoms Reported, Abdominal Pain, Nausea. negative: See HPI, Constipation, Diarrhea, Vomiting, Food Intolerance, Other Genitourinary: No Symptoms Reported. negative: See HPI, Discharge, Dysuria, Frequency, Hematuria, Pain, Bleeding, Other Neurological: No Symptoms Reported. negative: See HPI, Anxiety, Depressed, Emotional Problems, Headache, Numbness, Paresthesia, Pre-existing Deficit, Seizure, Tingling, Tremors, Weakness, Dizziness, Problems Walking, Speech Problem, Other Musculoskeletal: No Symptoms Reported, Right, Left (feet and legs tender on palpation; no swelling or erythema), Leg Integumentary: No Symptoms Reported Hematologic/Lymphatic: No Symptoms Reported Endocrine: No Symptoms Reported Psychiatric: No Symptoms Reported PE - Vital Signs Vitals: Temperature 98.3 F Pulse Rate 103 Respiratory Rate 22 Blood Pressure [Right Arm] 186/83 Blood Pressure [Left Arm] 141/73 Blood Pressure 197/99 O2 Sat by Pulse Oximetry 97 - General Limitations: No Limitations General Appearance: Alert, In Distress (severe), Obese - Eyes Eye exam: Normal Appearance, PERRL, EOMI. negative: Scleral Icterus, Conjunctival Injection, Nystagmus, Miosis, Mydrasis, Periorbital Swelling, Periorbital Tenderness, Other - ENT ENT Exam: Normal Exam, Normal Oropharynx, Normal External Ear Exam, Mucous Membranes Moist, TM's Normal Bilaterally External Ear Exam: Normal External Inspection TM/Canal Exam: Bilateral Normal Nose Exam: Normal Nose Exam Mouth Exam: Normal Inspection Throat Exam: Normal Inspection. negative: Tonsillar Erythema, Tonsillomegaly, Tonsillar Exudate, R Peritonsillar Mass, L Peritonsillar Mass, Muffled Voice, Other - Neck Neck Exam: Normal Inspection, Full ROM, Trachea Midline - Chest Chest Inspection: Normal Inspection, Symmetric Chest Wall Rise. negative: Tenderness, Rash, Abscess, Other - Respiratory Respiratory Exam: Normal Lung Sounds Bilat, Chest Wall Tenderness, Prolonged Expiratory Phase Respiratory Exam: Bilateral Clear to Auscultation - Cardiovascular Cardiovascular Exam: Regular Rate, Normal Rhythm, Normal Heart Sounds - Abdominal Exam Abdominal Exam: Normal Inspection, Normal Bowel Sounds, Soft, Tenderness, Guarding, Rebound, Dimnished Bowel Sounds, Hyperactive Bowel Sounds Abdominal Tenderness: LLQ, Suprapubic, Moderate, Severe - Extremities Extremities Exam: Normal Inspection, Full ROM, Tenderness (lower leg tender), Normal Capillary Refill - Back Back Exam: Normal Inspection, Full ROM - Neurologic Neurological Exam: Alert, Oriented X3, CN II-XII Intact, Reflexes Normal. negative: Normal Gait (gait not tested) - Psychiatric Psychiatric Exam: Normal Affect, Agitated, Anxious - Skin Skin Exam: Warm, Dry, Intact, Normal Color Course - Consultation Called: : Call Returned: : (Dr. Yost to admit) - Education/Counseling Education/Counseling: Patient, Family Educated On: Treatment, Diagnosis, Needs for Follow Up ROR - Labs Reviewed Laboratory Results Reviewed?: Yes (all labs and x-ray results reviewed and discussed with patient ) Result Diagrams: 06/03/17 14:10 06/03/17 14:40 Laboratory: WBC 10.3 X10^3/uL (3.6-10.0) H 06/03/17 14:10 RBC 4.92 X10^6/uL (3.5-5.4) 06/03/17 14:10 Hgb 11.1 g/dL (12.0-16.0) L 06/03/17 14:10 Hct 34.3 % (36.0-47.0) L 06/03/17 14:10 MCV 69.6 fL (80.0-100.0) L 06/03/17 14:10 MCH 22.5 pg (27.0-34.0) L 06/03/17 14:10 MCHC 32.3 g/dL (33.0-35.0) L 06/03/17 14:10 RDW 15.5 % (11.6-16.5) 06/03/17 14:10 Plt Count 274 X10^3/uL (150.0-450.0) 06/03/17 14:10 Plt Count Comment Adequate (ADEQUATE) 06/03/17 14:10 MPV 8.2 fL (7.4-11.0) 06/03/17 14:10 Neut % 88.5 % (42.0-75.0) H 06/03/17 14:10 Lymph % 7.4 % (21.0-51.0) L 06/03/17 14:10 [place] % 3.1 % (0.0-13.0) 06/03/17 14:10 Eos % 0.4 % (0.9-2.9) L 06/03/17 14:10 Baso % 0.6 % (0.2-1.0) 06/03/17 14:10 Neut # 9.1 x10^3/uL (2.2-4.8) H 06/03/17 14:10 Lymph # 0.8 X10^3/uL (1.3-2.9) L 06/03/17 14:10 [place] # 0.3 x10^3/uL (0.3-0.8) 06/03/17 14:10 Eos # 0.0 x10^3/uL (0.0-0.2) 06/03/17 14:10 Baso # 0.1 X10^3/uL (0.0-0.1) 06/03/17 14:10 Absolute Nucleated RBC 0.0 /100WBC 06/03/17 14:10 Plt Morphology Comment Normal (NORMAL) 06/03/17 14:10 RBC Morphology Abnormal (NORMAL) A 06/03/17 14:10 Hypochromasia 1+ A 06/03/17 14:10 Microcytosis 1+ A 06/03/17 14:10 INR Target Range - 06/03/17 14:40 INR 0.98 (0.8-1.3) 06/03/17 14:40 PTT 30.2 SECONDS (22.9-36.5) 06/03/17 14:40 PTT Comment - 06/03/17 14:40 D-Dimer 1680 ng/mL (0-400) H* 06/03/17 14:40 Sodium 136 mmol/L (136-145) 06/03/17 14:40 Corrected Sodium 144 mmol/L (136-145) 06/03/17 14:40 Potassium 3.9 mmol/L (3.5-5.1) 06/03/17 14:40 Chloride 100 mmol/L (98-107) 06/03/17 14:40 Carbon Dioxide 26.0 mmol/L (21-32) 06/03/17 14:40 BUN 13 mg/dL (7-18) 06/03/17 14:40 Creatinine 1.16 mg/dL (0.55-1.02) H 06/03/17 14:40 Est GFR (MDRD) Af Amer > 60 (>60) 06/03/17 14:40 Est GFR (MDRD) Non-Af 54 (>60) L 06/03/17 14:40 Glucose 428 mg/dL (65-99) H 06/03/17 14:40 Calcium 9.4 mg/dL (8.5-10.1) 06/03/17 14:40 Corrected Calcium 10.3 mg/dL (8.5-10.1) H 06/03/17 14:40 Total Bilirubin 0.20 mg/dL (0.2-1.0) 06/03/17 14:40 AST 19 Units/L (15-37) 06/03/17 14:40 ALT 18 Units/L (12-78) 06/03/17 14:40 Alkaline Phosphatase 140 Units/L (46-116) H 06/03/17 14:40 Total Protein 7.8 g/dL (6.4-8.2) 06/03/17 14:40 Albumin 2.9 g/dL (3.4-5.0) L 06/03/17 14:40 Globulin 4.9 g/dL (2.5-4.5) H 06/03/17 14:40 Albumin/Globulin Ratio 0.6 Ratio (1.1-2.1) L 06/03/17 14:40 Amylase 136 Units/L (25-115) H 06/03/17 14:40 Lipase 110 Units/L (73-393) 06/03/17 14:40 HCG, Qual Negative <10 mIU/mL 06/03/17 14:40 - XRAY XRAY Interpreted by: Radiologist (CTA: multiple ostial segmental pulmonary emboli inthe left upper, lingular and lower pulmonary arterial tree) XRAY Findings: Doppler venous studies: Negative for DVT - Diagnosis Discharge Problem: Acute pulmonary thromboembolism, Diabetes mellitus, Left ovarian cyst, Essential hypertension, persistent abdominal pain - Discharge Plan Disposition: ADMITTED INPATIENT Condition: Stable - Follow ups/Referrals Follow ups/Referrals: Mukesh Roque [Primary Care Provider] - 3 days - Instructions
[2017-06-03] MEDS ORDERED: NS 1000 ML 1,000 ML ONE (14:17)
[2017-06-03 14:53] LABS: BASOPHILS # (AUTO) 0.1 X10^3/uL (0.0-0.1); BASOPHILS % (AUTO) 0.6 % (0.2-1.0); EOSINOPHILS % (AUTO) 0.4 % (0.9-2.9); HEMATOCRIT 34.3 % (36.0-47.0); HEMOGLOBIN 11.1 g/dL (12.0-16.0); LYMPHOCYTES # (AUTO) 0.8 X10^3/uL (1.3-2.9); LYMPHOCYTES % (AUTO) 7.4 % (21.0-51.0); MEAN CORPUSCULAR HEMOGLOBIN 22.5 pg (27.0-34.0); MEAN CORPUSCULAR HGB CONC 32.3 g/dL (33.0-35.0); MEAN CORPUSCULAR VOLUME 69.6 fL (80.0-100.0); MEAN PLATELET VOLUME 8.2 fL (7.4-11.0); MONOCYTES # (AUTO) 0.3 x10^3/uL (0.3-0.8); MONOCYTES % (AUTO) 3.1 % (0.0-13.0); NEUTROPHILS # (AUTO) 9.1 x10^3/uL (2.2-4.8); NEUTROPHILS % (AUTO) 88.5 % (42.0-75.0); PLATELET COUNT 274 X10^3/uL (150.0-450.0); RED BLOOD COUNT 4.92 X10^6/uL (3.5-5.4); RED CELL DISTRIBUTION WIDTH 15.5 % (11.6-16.5); WHITE BLOOD COUNT 10.3 X10^3/uL (3.6-10.0)
[2017-06-03 15:06] LABS: SERUM PREGNANCY TEST, QUAL NEGATIVE <10 mIU/mL
[2017-06-03 15:06] LABS: HYPOCHROMASIA 1+; MICROCYTOSIS 1+; PLATELET MORPHOLOGY COMMENT NORMAL (NORMAL)
[2017-06-03 15:12] LABS: ALANINE AMINOTRANSFERASE 18 Units/L (12-78); ALBUMIN 2.9 g/dL (3.4-5.0); ALKALINE PHOSPHATASE 140 Units/L (46-116); AMYLASE 136 Units/L (25-115); ASPARTATE AMINO TRANSFERASE 19 Units/L (15-37); BLOOD UREA NITROGEN 13 mg/dL (7-18); CALCIUM 9.4 mg/dL (8.5-10.1); CHLORIDE 100 mmol/L (98-107); COR CA(FOR HYPOALB) 10.3 mg/dL (8.5-10.1); COR NA(FOR HYPERGLY) 144 mmol/L (136-145); CREATININE 1.16 mg/dL (0.55-1.02); LIPASE 110 Units/L (73-393); SODIUM 136 mmol/L (136-145); TOTAL PROTEIN 7.8 g/dL (6.4-8.2); eGFR BLACK RACES > 60 (>60); eGFR NON BLACK RACES 54 (>60)
[2017-06-03] MEDS ORDERED: MORPHINE SULFATE INJ 2 MG INJ IVP ONE (15:46)
[2017-06-03] MEDS ORDERED: MORPHINE SULFATE INJ 2 MG INJ ONE (15:51)
--- NOTE | 2017-06-03 15:52 | CT ---
CT ABDOMEN AND PELVIS WITHOUT CONTRAST CLINICAL HISTORY: 41-year-old female with left lower quadrant pain and vomiting. COMPARISON: CT abdomen and pelvis 11/01/2016. TECHNIQUE: Multiple contiguous computed tomographic axial images of the abdomen and pelvis were obtai cecile without the use of oral or intravenous contrast. Images were reformatted in the coronal and sagit sarah planes. FINDINGS: Bibasilar subsegmental dependent atelectasis with no effusion or pneumothorax. No mass or nodule appr eciated. Cardiomegaly without pericardial effusion. Hepatomegaly without hepatic steatosis, focal mass lesion or biliary ductal dilatation. Gallbladder, spleen and pancreas are unremarkable for study without intravenous contrast. The adrenal glands and kidneys are normal bilaterally. There are no nephroureteral stones or perineph john paul fluid collections. There is no evidence of hydroureteronephrosis and the ureters run in an unobst ructed course to a well distended urinary bladder. Fibroid uterus is anteverted and normal in size otherwise. Left adnexal cyst measuring 2.4 x 2.3 x 3 .9 cm. Right adnexa unremarkable. Vagina and external genitalia are unremarkable. Multiple pelvic phl eboliths. Trace free fluid within the pelvis. The appendix is not definitively visualized without inflammatory change in the right lower quadrant. Multiple surgical clips and surgical staple line with evidence of prior bowel surgery of the rectosig moid. The bowel is without obstruction or inflammation and there is no free air within the peritonea l cavity. There are no pathologically enlarged lymph nodes in the abdomen or pelvis. The arteriovascular structures are within normal limits for a study without contrast. Soft tissues are normal. The osseous structures are intact without fracture or malalignment. IMPRESSION: 1. Left adnexal cyst measuring up to 4 cm with trace free fluid in the pelvis, this may be the source of the patient's pain, follow-up with [facility]. 2. Hepatomegaly. 3. Appendix not definitively visualized, no inflammatory change to suggest appendicitis. Reported By:
[2017-06-03] MEDS ORDERED: TORADOL 30 MG VIAL IVP STA (16:10)
[2017-06-03] MEDS ORDERED: TORADOL 30 MG VIAL ONE (16:19)
[2017-06-03] MEDS ORDERED: NS 100 ML IV 100 ML IV ONE (16:33)
[2017-06-03] MEDS ORDERED: ATIVAN INJ 2 MG VIAL ONE (16:46)
--- NOTE | 2017-06-03 17:20 | CT ---
CT ANGIOGRAPHY OF THE CHEST CLINICAL HISTORY: 41-year-old female with abnormal D-dimer. COMPARISON: None. TECHNIQUE: CT angiogram of the chest was performed following the uncomplicated administration of intr avenous contrast as per routine pulmonary embolus protocol. Coronal and Sagittal reformats provided. MIP reformats are submitted for review. FINDINGS: Subtle filling defects at the ostia of the left upper lingular and lower segmental pulmonary arterial branches. There is no thoracic aortic dissection. Cardiomegaly without pericardial effusion. There is no axillary or mediastinal lymphadenopathy. Evaluation of the lung parenchyma demonstrates no pulmonary nodules, masses, or airspace opacities. T he trachea and mainstem bronchi are patent. There is no pleural effusion or pneumothorax. See CT abdomen and pelvis this date for a complete description. The arteriovascular structures are within normal limits. Soft tissues are normal. The osseous structures are intact without fracture or malalignment. IMPRESSION: Multiple ostial segmental pulmonary emboli within the left upper, lingular and lower pulmonary arteri al tree. Findings were communicated via telephone to Dr. Mitchell, by Dr. [facility] on 06/03/2017 at 5:15 p.m.. Reported By:
--- NOTE | 2017-06-03 17:48 | VAS ---
HISTORY: 41-year-old female with abnormal D-dimer left lower extremity pain. Study: Venous duplex Doppler. Comparison: None. TECHNIQUE: Multiple rey scale and color flow Doppler images of the deep venous system were obtained of the right and left lower extremity. FINDINGS: The deep venous system of the right and left lower extremities were evaluated from the level of the c ommon femoral vein through the popliteal vein. Normal color flow and augmentation can be observed. In addition, normal compression is seen throughout the deep venous system. IMPRESSION: 1. Negative for DVT. Reported By:
[2017-06-03] MEDS ORDERED: ATIVAN INJ 2 MG VIAL IVP STA (18:22)
[2017-06-03] MEDS ORDERED: HEPARIN SODIUM INJ 5000 UNITS ONE (18:50)
[2017-06-03] MEDS ORDERED: HEPARIN SODIUM INJ 5000 UNITS IVP ONE (18:56)
[2017-06-03] MEDS: HEPARIN SODIUM IN D5W 25,000 UNITS/500 ML BAG IV PRN (19:13)
[2017-06-03 19:41] LABS: BILIRUBIN,URINE NEGATIVE (NEGATIVE); BLOOD/HEMOGLOBIN,URINE 2+ (NEGATIVE); GLUCOSE, URINE 4+ (NEGATIVE); KETONES,URINE 2+ (NEGATIVE); LEUKOCYTE ESTERASE ,URINE NEGATIVE (NEGATIVE); NITRITES,URINE NEGATIVE (NEGATIVE); PROTEIN,URINE 4+ (NEGATIVE); UROBILINOGEN,URINE NORMAL (NORMAL)
[2017-06-03 19:54] LABS: APPEARANCE,URINE CLEAR (CLEAR); COLOR,URINE YELLOW (YELLOW)
[2017-06-03 20:10] LABS: AMORPHOUS SEDIMENT,UR TRACE /HPF (NEGATIVE); BACTERIA,URINE TRACE /HPF (NEGATIVE); HYALINE CASTS, URINE RARE /LPF (NEGATIVE); MUCUS,URINE MODERATE /HPF (NEGATIVE); SQUAMOUS EPITHELIAL CELL,UR FEW /HPF (NEGATIVE)
[2017-06-03 20:11] LABS: YEAST,URINE FEW /HPF (NEGATIVE)
[2017-06-03] MEDS ORDERED: APRESOLINE INJ 20 MG VIAL IVP PRN (21:24)
[2017-06-03] MEDS: COLACE CAP 100 MG PO SCH (22:18)
[2017-06-03] MEDS: CATAPRES TAB 0.1 MG PO PRN (22:18)
[2017-06-03] MEDS: NORCO 7.5/325 MG TAB PO PRN (22:18)
[2017-06-03] MEDS: PROTONIX INJ 40 MG VIAL IVP SCH (22:19)
[2017-06-03] MEDS: MILK OF MAGNESIA PO SCH (22:19)
[2017-06-03] MEDS: HumuLIN R SC PRN (22:20)
[2017-06-03] MEDS: NS 1000 ML 1,000 ML IV SCH (22:21)
[2017-06-04] MEDS: MILK OF MAGNESIA PO SCH ×2 (00:38→21:55)
[2017-06-04 01:46] VITALS: BMI 36.0
[2017-06-04] MEDS: NORCO 7.5/325 MG TAB PO PRN ×3 (06:27→19:48)
[2017-06-04] MEDS: HumuLIN R SC PRN ×4 (06:32→17:20)
[2017-06-04 07:58] LABS: BASOPHILS # (AUTO) 0.1 X10^3/uL (0.0-0.1); BASOPHILS % (AUTO) 1.3 % (0.2-1.0); EOSINOPHILS # (AUTO) 0.1 x10^3/uL (0.0-0.2); HEMATOCRIT 33.1 % (36.0-47.0); HEMOGLOBIN 10.5 g/dL (12.0-16.0); LYMPHOCYTES # (AUTO) 2.2 X10^3/uL (1.3-2.9); LYMPHOCYTES % (AUTO) 22.8 % (21.0-51.0); MEAN CORPUSCULAR HEMOGLOBIN 22.1 pg (27.0-34.0); MEAN CORPUSCULAR HGB CONC 31.7 g/dL (33.0-35.0); MEAN CORPUSCULAR VOLUME 69.7 fL (80.0-100.0); MONOCYTES # (AUTO) 0.5 x10^3/uL (0.3-0.8); MONOCYTES % (AUTO) 4.7 % (0.0-13.0); NEUTROPHILS # (AUTO) 6.7 x10^3/uL (2.2-4.8); NEUTROPHILS % (AUTO) 70.2 % (42.0-75.0); PLATELET COUNT 292 X10^3/uL (150.0-450.0); RED BLOOD COUNT 4.74 X10^6/uL (3.5-5.4); RED CELL DISTRIBUTION WIDTH 15.5 % (11.6-16.5); WHITE BLOOD COUNT 9.6 X10^3/uL (3.6-10.0)
[2017-06-04 08:10] LABS: ALANINE AMINOTRANSFERASE 15 Units/L (12-78); ALBUMIN 2.5 g/dL (3.4-5.0); ALKALINE PHOSPHATASE 115 Units/L (46-116); ASPARTATE AMINO TRANSFERASE 15 Units/L (15-37); BLOOD UREA NITROGEN 16 mg/dL (7-18); CALCIUM 8.9 mg/dL (8.5-10.1); CARBON DIOXIDE 28.3 mmol/L (21-32); CHLORIDE 105 mmol/L (98-107); COR CA(FOR HYPOALB) 10.1 mg/dL (8.5-10.1); COR NA(FOR HYPERGLY) 143 mmol/L (136-145); SODIUM 141 mmol/L (136-145); eGFR BLACK RACES > 60 (>60); eGFR NON BLACK RACES 52 (>60)
[2017-06-04 08:21] LABS: PLATELET MORPHOLOGY COMMENT NORMAL (NORMAL)
[2017-06-04 08:22] LABS: HYPOCHROMASIA 1+; MICROCYTOSIS 1+
[2017-06-04] MEDS ORDERED: GLUCOPHAGE ONE (09:10)
[2017-06-04] MEDS: PROTONIX INJ 40 MG VIAL IVP SCH (09:26)
[2017-06-04] MEDS: ZESTORETIC 20/25 MG PO SCH (09:26)
[2017-06-04] MEDS: GLUCOPHAGE PO SCH ×2 (09:27→21:57)
[2017-06-04] MEDS: ULORIC PO SCH (09:29)
[2017-06-04] MEDS: DAPAGLIFLOZIN PROPANEDIOL 10 MG PO SCH (09:34)
[2017-06-04] MEDS: LANTUS SC SCH ×2 (10:27→22:10)
[2017-06-04] MEDS: NS 1000 ML 1,000 ML IV SCH ×2 (10:28→22:55)
[2017-06-04] MEDS: NEURONTIN CAP 100 MG PO SCH ×2 (13:46→21:56)
[2017-06-04] MEDS: MORPHINE SULFATE INJ 2 MG INJ IVP PRN ×2 (16:35→21:56)
[2017-06-04] MEDS: HEPARIN SODIUM IN D5W 25,000 UNITS/500 ML BAG IV PRN (16:37)
--- NOTE | 2017-06-04 20:48 | DR.H&P ---
H&P - History & Physical for Day of: H&P Date: 06/03/17 - Chief Complaint Chief Complaint: Left leg pain, vomiting - Allergies Allergies/Adverse Reactions: Allergies Allergy/AdvReac Type Severity Reaction Status Date / Time No Known Drug Allergies Allergy Verified 06/03/17 19:40 - History of Present Illness History of Present Illness: Patient is complaining of severe left lower abdominal pain that radiates down her left leg for the past two hours onset after waking up this am. Patient states the pain is 20 of 10 with the pain being sharp and worst when she moves. States her last bowel movement was yesterday and her last menstrual period was week ago. states she had similar pain two years ago when she had a perforation in her bowels. States she feel hot. She denies nausea, vomiting, cold or cough. States her legs hurt everywhere you touch them. She denies any recent trauma. Denies family history of blood clots. Denies recent long distance traveling. - Past Medical History Past Medical History: Diabetes, Hypertension - Past Surgical History Surgical History: Appendectomy, Bowel Resection - Family History Family Medical History: Diabetes Mellitus, [place], Heart Failure, Hypertension - Social History Does patient currently use any type of tobacco product: No Have you used tobacco products in the last 12 months: No Type of Tobacco Use: None Does any household member use tobacco: No Alcohol Use: None Drug Use: None - Review of Systems Constitutional: No Symptoms Reported Eyes: No Symptoms Reported ENT: No Symptoms Reported Respiratory: No Symptoms Reported Cardiovascular: No Symptoms Reported Gastrointestinal: Nausea, Vomiting, Abdominal Pain Genitourinary: No Symptoms Reported Musculoskeletal: Leg Pain Skin: No Symptoms Reported Neurological: No Symptoms Reported - Physical Exam Vital Signs: Temperature 97 F Pulse Rate [Apical] 84 Pulse Rate 103 Respiratory Rate 14 Blood Pressure [Right Arm] 138/67 Blood Pressure [Left Arm] 141/73 Blood Pressure 197/99 O2 Sat by Pulse Oximetry 99 Oriented: Normal Eyes: Normal Ear: Normal Nose: Normal Throat: Normal Respiratory: Clear Throughout Cardiovascular: Normal : Normal Auscultation: Bowel Sounds: Normal Palpation: Normal Tenderness: Normal Skin: Normal Musculoskeletal: Leg, Foot, Tender Psychiatric: Normal Mood Description: Calm Affect: Normal Speech Pattern: Clear - Assessment/Plan (1) Neuropathy Status: Acute Plan: Gabapentin, Monitor FSBS with SSRI coverage. (2) Acute pulmonary thromboembolism Status: Acute Plan: Heparin gtt. (3) Essential hypertension Status: Acute Plan: monitor BP. Administer anti-hypertensive meds. (4) Diabetes mellitus Qualifiers: Status: Chronic Plan: FSBS checks, SSRI Coverage.
--- NOTE | 2017-06-04 20:52 | PCM.PROG ---
Progress Note - Progress Note for Day of Date: 06/04/17 - Subjective Subjective: The patient is a 41yo BF who presented to the ED with complaint of Abdominal pain radiating down left leg. Does have DM and peripheral neuropathy. Denies leg pain being worse than usual. Denies family history of DVT. Denies oral contraceptives use. Does not smoke. Denies dyspnea. - Past Medical Family Social History Past Med/Fam/Surg Hx: No changes since H&P Allergies: Allergies No Known Drug Allergies Allergy (Verified 06/03/17 19:40) - Review of Systems ROS: No change since H&P - Vital Signs and I&O's Vital Signs: Temperature 97 F Pulse Rate [Apical] 84 Pulse Rate 103 Respiratory Rate 14 Blood Pressure [Right Arm] 138/67 Blood Pressure [Left Arm] 141/73 Blood Pressure 197/99 O2 Sat by Pulse Oximetry 99 Intake and Output: Intake & Output 06/02/17 06/03/17 06/04/17 06/05/17 11:59 11:59 11:59 11:59 Intake Total 2121 2410 Output Total 1000 Balance 2121 1410 - Physical Exam Oriented: Normal Eyes: Normal Ear: Normal Nose: Normal Throat: Normal Respiratory: Normal Cardiovascular: Normal : Normal Auscultation: Bowel Sounds: Normal Tenderness: Normal Skin: Normal Musculoskeletal: Leg, Foot, Tender Psychiatric: Normal Mood Description: Calm Affect: Normal Speech Pattern: Clear - Laboratory and Diagnostics Result Diagrams: 06/04/17 07:46 06/04/17 07:46 Labs: Laboratory WBC 9.6 X10^3/uL (3.6-10.0) 06/04/17 07:46 RBC 4.74 X10^6/uL (3.5-5.4) 06/04/17 07:46 Hgb 10.5 g/dL (12.0-16.0) L 06/04/17 07:46 Hct 33.1 % (36.0-47.0) L 06/04/17 07:46 MCV 69.7 fL (80.0-100.0) L 06/04/17 07:46 MCH 22.1 pg (27.0-34.0) L 06/04/17 07:46 MCHC 31.7 g/dL (33.0-35.0) L 06/04/17 07:46 RDW 15.5 % (11.6-16.5) 06/04/17 07:46 Plt Count 292 X10^3/uL (150.0-450.0) 06/04/17 07:46 Plt Count Comment Adequate (ADEQUATE) 06/04/17 07:46 MPV 8.0 fL (7.4-11.0) 06/04/17 07:46 Neut % 70.2 % (42.0-75.0) 06/04/17 07:46 Lymph % 22.8 % (21.0-51.0) 06/04/17 07:46 [place] % 4.7 % (0.0-13.0) 06/04/17 07:46 Eos % 1.0 % (0.9-2.9) 06/04/17 07:46 Baso % 1.3 % (0.2-1.0) H 06/04/17 07:46 Neut # 6.7 x10^3/uL (2.2-4.8) H 06/04/17 07:46 Lymph # 2.2 X10^3/uL (1.3-2.9) 06/04/17 07:46 [place] # 0.5 x10^3/uL (0.3-0.8) 06/04/17 07:46 Eos # 0.1 x10^3/uL (0.0-0.2) 06/04/17 07:46 Baso # 0.1 X10^3/uL (0.0-0.1) 06/04/17 07:46 Absolute Nucleated RBC 0.1 /100WBC 06/04/17 07:46 Plt Morphology Comment Normal (NORMAL) 06/04/17 07:46 RBC Morphology Abnormal (NORMAL) A 06/04/17 07:46 Hypochromasia 1+ A 06/04/17 07:46 Microcytosis 1+ A 06/04/17 07:46 INR Target Range - 06/03/17 14:40 INR 0.98 (0.8-1.3) 06/03/17 14:40 PTT 79.2 SECONDS (22.9-36.5) H 06/04/17 19:00 PTT Comment - 06/04/17 19:00 D-Dimer 1680 ng/mL (0-400) H* 06/03/17 14:40 Sodium 141 mmol/L (136-145) 06/04/17 07:46 Corrected Sodium 143 mmol/L (136-145) 06/04/17 07:46 Potassium 3.5 mmol/L (3.5-5.1) 06/04/17 07:46 Chloride 105 mmol/L (98-107) 06/04/17 07:46 Carbon Dioxide 28.3 mmol/L (21-32) 06/04/17 07:46 BUN 16 mg/dL (7-18) 06/04/17 07:46 Creatinine 1.20 mg/dL (0.55-1.02) H 06/04/17 07:46 Est GFR (MDRD) Af Amer > 60 (>60) 06/04/17 07:46 Est GFR (MDRD) Non-Af 52 (>60) L 06/04/17 07:46 Glucose 202 mg/dL (65-99) H 06/04/17 07:46 POC Glucose (mg/dL) 190 mg/dL (65-99) H 06/04/17 17:10 Calcium 8.9 mg/dL (8.5-10.1) 06/04/17 07:46 Corrected Calcium 10.1 mg/dL (8.5-10.1) 06/04/17 07:46 Total Bilirubin 0.20 mg/dL (0.2-1.0) 06/04/17 07:46 AST 15 Units/L (15-37) 06/04/17 07:46 ALT 15 Units/L (12-78) 06/04/17 07:46 Alkaline Phosphatase 115 Units/L (46-116) 06/04/17 07:46 Total Protein 7.0 g/dL (6.4-8.2) 06/04/17 07:46 Albumin 2.5 g/dL (3.4-5.0) L 06/04/17 07:46 Globulin 4.5 g/dL (2.5-4.5) 06/04/17 07:46 Albumin/Globulin Ratio 0.6 Ratio (1.1-2.1) L 06/04/17 07:46 Amylase 136 Units/L (25-115) H 06/03/17 14:40 Lipase 110 Units/L (73-393) 06/03/17 14:40 HCG, Qual Negative <10 mIU/mL 06/03/17 14:40 Specimen Type Random urine 06/03/17 19:31 Urine Color Yellow (YELLOW) 06/03/17 19:31 Urine Appearance Clear (CLEAR) 06/03/17 19:31 Urine pH 5.0 (5.0 - 8.0) 06/03/17 19:31 Ur Specific [place] 1.010 (1.000-1.030) 06/03/17 19:31 Urine Protein 4+ (NEGATIVE) 06/03/17 19:31 Urine Glucose (UA) 4+ (NEGATIVE) 06/03/17 19:31 Urine Ketones 2+ (NEGATIVE) 06/03/17 19:31 Urine Occult Blood 2+ (NEGATIVE) 06/03/17 19:31 Urine Nitrite Negative (NEGATIVE) 06/03/17 19:31 Urine Bilirubin Negative (NEGATIVE) 06/03/17 19:31 Urine Urobilinogen Normal (NORMAL) 06/03/17 19:31 Ur Leukocyte Esterase Negative (NEGATIVE) 06/03/17 19:31 Urine RBC 02 - 05 /HPF (NEGATIVE) 06/03/17 19:31 Urine WBC 01 - 03 /HPF (NEGATIVE) 06/03/17 19:31 Ur Squamous Epith Cells Few /HPF (NEGATIVE) 06/03/17 19:31 Amorphous Sediment Trace /HPF (NEGATIVE) 06/03/17 19:31 Urine Bacteria Trace /HPF (NEGATIVE) 06/03/17 19:31 Hyaline Casts Rare /LPF (NEGATIVE) 06/03/17 19:31 Urine Mucus Moderate /HPF (NEGATIVE) 06/03/17 19:31 Urine Yeast Few /HPF (NEGATIVE) 06/03/17 19:31 Ur Culture Indicated? No/not indicated 06/03/17 19:31 Urine Opiates Screen Negative (NEG=<300) 06/03/17 19:31 Urine Methadone Screen Negative (NEG=<300) 06/03/17 19:31 Ur Barbiturates Screen Negative (NEG=<200) 06/03/17 19:31 Ur Phencyclidine Scrn Negative (NEG=<25) 06/03/17 19:31 Ur Amphetamines Screen Negative (NEG=<1000) 06/03/17 19:31 U Benzodiazepines Scrn Negative (NEG=<200) 06/03/17 19:31 Urine Cocaine Screen Negative (NEG=<300) 06/03/17 19:31 U Marijuana (THC) Screen Negative (NEG=<50) 06/03/17 19:31 - Plan (1) Neuropathy Status: Acute Plan: Gabapentin, Monitor FSBS with SSRI coverage. (2) Acute pulmonary thromboembolism Status: Acute Plan: Heparin gtt. (3) Essential hypertension Status: Acute Plan: monitor BP. Administer anti-hypertensive meds. (4) Diabetes mellitus Status: Chronic Qualifiers: Plan: FSBS checks, SSRI Coverage.
[2017-06-04] MEDS: COLACE CAP 100 MG PO SCH (21:55)
[2017-06-04] MEDS: LIPITOR TAB 20 MG PO SCH (21:56)
[2017-06-05] MEDS: NORCO 7.5/325 MG TAB PO PRN ×4 (02:20→21:23)
[2017-06-05] MEDS: MORPHINE SULFATE INJ 2 MG INJ IVP PRN ×4 (04:59→22:34)
[2017-06-05 05:20] LABS: BASOPHILS # (AUTO) 0.1 X10^3/uL (0.0-0.1); BASOPHILS % (AUTO) 0.8 % (0.2-1.0); EOSINOPHILS # (AUTO) 0.1 x10^3/uL (0.0-0.2); EOSINOPHILS % (AUTO) 1.4 % (0.9-2.9); HEMATOCRIT 30.4 % (36.0-47.0); HEMOGLOBIN 9.7 g/dL (12.0-16.0); LYMPHOCYTES # (AUTO) 1.7 X10^3/uL (1.3-2.9); LYMPHOCYTES % (AUTO) 20.5 % (21.0-51.0); MEAN CORPUSCULAR HEMOGLOBIN 22.3 pg (27.0-34.0); MEAN CORPUSCULAR VOLUME 69.6 fL (80.0-100.0); MONOCYTES # (AUTO) 0.5 x10^3/uL (0.3-0.8); MONOCYTES % (AUTO) 6.1 % (0.0-13.0); NEUTROPHILS # (AUTO) 5.8 x10^3/uL (2.2-4.8); NEUTROPHILS % (AUTO) 71.2 % (42.0-75.0); PLATELET COUNT 252 X10^3/uL (150.0-450.0); RED BLOOD COUNT 4.36 X10^6/uL (3.5-5.4); RED CELL DISTRIBUTION WIDTH 15.5 % (11.6-16.5); WHITE BLOOD COUNT 8.1 X10^3/uL (3.6-10.0)
[2017-06-05 05:28] LABS: ALANINE AMINOTRANSFERASE 12 Units/L (12-78); ALBUMIN 2.2 g/dL (3.4-5.0); ALKALINE PHOSPHATASE 100 Units/L (46-116); ASPARTATE AMINO TRANSFERASE 18 Units/L (15-37); BLOOD UREA NITROGEN 15 mg/dL (7-18); CALCIUM 8.3 mg/dL (8.5-10.1); CARBON DIOXIDE 26.7 mmol/L (21-32); CHLORIDE 106 mmol/L (98-107); COR CA(FOR HYPOALB) 9.7 mg/dL (8.5-10.1); COR NA(FOR HYPERGLY) 140 mmol/L (136-145); CREATININE 1.04 mg/dL (0.55-1.02); SODIUM 139 mmol/L (136-145); TOTAL PROTEIN 6.3 g/dL (6.4-8.2); eGFR BLACK RACES > 60 (>60); eGFR NON BLACK RACES > 60 (>60)
[2017-06-05 05:57] LABS: HYPOCHROMASIA 1+; MICROCYTOSIS 1+; PLATELET MORPHOLOGY COMMENT NORMAL (NORMAL)
[2017-06-05] MEDS: NEURONTIN CAP 100 MG PO SCH ×3 (06:28→21:22)
[2017-06-05] MEDS: SNACK - Diabetic Appropriate PO SCH ×3 (08:08→21:21)
[2017-06-05] MEDS: ZESTORETIC 20/25 MG PO SCH (08:10)
[2017-06-05] MEDS: PROTONIX INJ 40 MG VIAL IVP SCH (08:10)
[2017-06-05] MEDS: NS 1000 ML 1,000 ML IV SCH ×2 (08:10→12:15)
[2017-06-05] MEDS: DAPAGLIFLOZIN PROPANEDIOL 10 MG PO SCH (08:11)
[2017-06-05] MEDS: ULORIC PO SCH (08:15)
[2017-06-05] MEDS: GLUCOPHAGE PO SCH ×2 (08:17→21:22)
[2017-06-05] MEDS: HumuLIN R SC PRN (11:18)
[2017-06-05 12:05] LABS: ERYTHROCYTE SEDIMENTATION RATE 78 MM/HOUR (0-20)
[2017-06-05] MEDS: XARELTO PO SCH ×2 (12:19→21:23)
[2017-06-05] MEDS: HEPARIN SODIUM IN D5W 25,000 UNITS/500 ML BAG IV PRN (15:48)
--- NOTE | 2017-06-05 20:37 | PCM.PROG ---
Progress Note - Progress Note for Day of Date: 06/05/17 - Subjective Subjective: MS. HOFFMAN WAS ADMITTED FOR ACUTE PULMONARY EMBOLISM AND ABDOMINAL PAIN. TODAY, SHE IS ALERT AND ORIENTED, LYING IN BED ON MORNING ROUNDS. SHE IS NOTED WITH COMPLAINTS OF SHORTNESS OF BREATH. ON EXAMINATION, LUNG SOUNDS ARE DIMINISHED. ABDOMEN IS ROUND, SOFT, AND TENDER. NORMAL BOWEL SOUNDS ARE NOTED IN ALL QUADRANTS. PATIENT REPORTS DIFFUSE TENDERNESS. BILATERAL LOWER EXTREMITIES ARE NOTED WITH EDEMA, BUT PATIENT REPORTS NO MORE THAN USUSAL. SHE REPORTS PAIN IN LOWER EXTREMITIES. SHE IS UTILIZING OXYGEN VIA NASAL CANNULA AT 2L/MIN. HER VITAL SIGNS THIS MORNING ARE 97.9-84-17-97%-187/96. A CBC AND CMP WERE OBTAINED THIS MORNING. ABNORMAL LAB RESULTS INCLUDE THE FOLLOWING: HGB 9.7 , HCT 30.4, POTASSIUM 3.3, CREATININE 1.04, GLUCOSE 135, CALCIUM 8.3, TOTAL BILI 0.10, CRP 22.20, SED RATE 78, TOTAL PROTEIN 63.3, ALBUMIN 2.2, PTT 69.1. TODAY, WE WILL CHECK A HYPER COAG PANEL. WE WILL DISCONTINUE THE HEPARIN DRIP FOR 1 HOUR, THEN OBTAIN BLOOD SAMPLES. AFTER SAMPLES ARE DRAWN, WE WILL THEN CONTINUE THE DRIP. WE WILL ALSO START XARELTO 15MG PO BID. OTHERWISE, WE PLAN TO FOLLOW UP WITH AM LABS AND CONTINUE TO MONITOR PATIENT. - Past Medical Family Social History Past Med/Fam/Surg Hx: No changes since H&P Allergies: Allergies No Known Drug Allergies Allergy (Verified 06/03/17 19:40) - Review of Systems ROS: No change since H&P - Vital Signs and I&O's Vital Signs: Temperature 97.5 F Pulse Rate [Apical] 87 Pulse Rate 103 Respiratory Rate 15 Blood Pressure [Right Arm] 139/65 Blood Pressure [Left Arm] 141/73 Blood Pressure 197/99 O2 Sat by Pulse Oximetry 97 Intake and Output: Intake & Output 06/03/17 06/04/17 06/05/17 06/06/17 11:59 11:59 11:59 11:59 Intake Total 2121 4996.8 1352.2 Output Total 1000 Balance 2121 3996.8 1352.2 - Physical Exam Oriented: Normal Eyes: Normal Ear: Normal Nose: Normal Throat: Normal Respiratory: Diminished Cardiovascular: Edema : Normal Auscultation: Bowel Sounds: Normal Palpation: Normal Tenderness: Normal Skin: Normal Musculoskeletal: Leg, Foot, Tender Psychiatric: Normal Mood Description: Calm Affect: Normal Speech Pattern: Clear, Appropriate - Laboratory and Diagnostics Result Diagrams: 06/05/17 04:55 06/05/17 04:55 Labs: Laboratory WBC 8.1 X10^3/uL (3.6-10.0) 06/05/17 04:55 RBC 4.36 X10^6/uL (3.5-5.4) 06/05/17 04:55 Hgb 9.7 g/dL (12.0-16.0) L 06/05/17 04:55 Hct 30.4 % (36.0-47.0) L 06/05/17 04:55 MCV 69.6 fL (80.0-100.0) L 06/05/17 04:55 MCH 22.3 pg (27.0-34.0) L 06/05/17 04:55 MCHC 32.0 g/dL (33.0-35.0) L 06/05/17 04:55 RDW 15.5 % (11.6-16.5) 06/05/17 04:55 Plt Count 252 X10^3/uL (150.0-450.0) 06/05/17 04:55 Plt Count Comment Adequate (ADEQUATE) 06/05/17 04:55 MPV 8.0 fL (7.4-11.0) 06/05/17 04:55 Neut % 71.2 % (42.0-75.0) 06/05/17 04:55 Lymph % 20.5 % (21.0-51.0) L 06/05/17 04:55 [place] % 6.1 % (0.0-13.0) 06/05/17 04:55 Eos % 1.4 % (0.9-2.9) 06/05/17 04:55 Baso % 0.8 % (0.2-1.0) 06/05/17 04:55 Neut # 5.8 x10^3/uL (2.2-4.8) H 06/05/17 04:55 Lymph # 1.7 X10^3/uL (1.3-2.9) 06/05/17 04:55 [place] # 0.5 x10^3/uL (0.3-0.8) 06/05/17 04:55 Eos # 0.1 x10^3/uL (0.0-0.2) 06/05/17 04:55 Baso # 0.1 X10^3/uL (0.0-0.1) 06/05/17 04:55 Absolute Nucleated RBC 0.1 /100WBC 06/05/17 04:55 Plt Morphology Comment Normal (NORMAL) 06/05/17 04:55 RBC Morphology Abnormal (NORMAL) A 06/05/17 04:55 Hypochromasia 1+ A 06/05/17 04:55 Microcytosis 1+ A 06/05/17 04:55 ESR 78 MM/HOUR (0-20) H 06/05/17 10:25 INR Target Range - 06/03/17 14:40 INR 0.98 (0.8-1.3) 06/03/17 14:40 PTT 125.5 SECONDS (22.9-36.5) H 06/05/17 18:30 PTT Comment - 06/05/17 18:30 D-Dimer 1680 ng/mL (0-400) H* 06/03/17 14:40 Sodium 139 mmol/L (136-145) 06/05/17 04:55 Corrected Sodium 140 mmol/L (136-145) 06/05/17 04:55 Potassium 3.3 mmol/L (3.5-5.1) L 06/05/17 04:55 Chloride 106 mmol/L (98-107) 06/05/17 04:55 Carbon Dioxide 26.7 mmol/L (21-32) 06/05/17 04:55 BUN 15 mg/dL (7-18) 06/05/17 04:55 Creatinine 1.04 mg/dL (0.55-1.02) H 06/05/17 04:55 Est GFR (MDRD) Af Amer > 60 (>60) 06/05/17 04:55 Est GFR (MDRD) Non-Af > 60 (>60) 06/05/17 04:55 Glucose 135 mg/dL (65-99) H 06/05/17 04:55 POC Glucose (mg/dL) 109 mg/dL (65-99) H 06/05/17 20:24 Calcium 8.3 mg/dL (8.5-10.1) L 06/05/17 04:55 Corrected Calcium 9.7 mg/dL (8.5-10.1) 06/05/17 04:55 Total Bilirubin 0.10 mg/dL (0.2-1.0) L 06/05/17 04:55 AST 18 Units/L (15-37) 06/05/17 04:55 ALT 12 Units/L (12-78) 06/05/17 04:55 Alkaline Phosphatase 100 Units/L (46-116) 06/05/17 04:55 C-Reactive Protein 22.20 mg/L (0-3.0) H 06/05/17 10:25 Total Protein 6.3 g/dL (6.4-8.2) L 06/05/17 04:55 Albumin 2.2 g/dL (3.4-5.0) L 06/05/17 04:55 Globulin 4.1 g/dL (2.5-4.5) 06/05/17 04:55 Albumin/Globulin Ratio 0.5 Ratio (1.1-2.1) L 06/05/17 04:55 Amylase 136 Units/L (25-115) H 06/03/17 14:40 Lipase 110 Units/L (73-393) 06/03/17 14:40 HCG, Qual Negative <10 mIU/mL 06/03/17 14:40 Specimen Type Random urine 06/03/17 19:31 Urine Color Yellow (YELLOW) 06/03/17 19:31 Urine Appearance Clear (CLEAR) 06/03/17 19:31 Urine pH 5.0 (5.0 - 8.0) 06/03/17 19:31 Ur Specific [place] 1.010 (1.000-1.030) 06/03/17 19:31 Urine Protein 4+ (NEGATIVE) 06/03/17 19:31 Urine Glucose (UA) 4+ (NEGATIVE) 06/03/17 19:31 Urine Ketones 2+ (NEGATIVE) 06/03/17 19:31 Urine Occult Blood 2+ (NEGATIVE) 06/03/17 19:31 Urine Nitrite Negative (NEGATIVE) 06/03/17 19:31 Urine Bilirubin Negative (NEGATIVE) 06/03/17 19:31 Urine Urobilinogen Normal (NORMAL) 06/03/17 19:31 Ur Leukocyte Esterase Negative (NEGATIVE) 06/03/17 19:31 Urine RBC 02 - 05 /HPF (NEGATIVE) 06/03/17 19:31 Urine WBC 01 - 03 /HPF (NEGATIVE) 06/03/17 19:31 Ur Squamous Epith Cells Few /HPF (NEGATIVE) 06/03/17 19:31 Amorphous Sediment Trace /HPF (NEGATIVE) 06/03/17 19:31 Urine Bacteria Trace /HPF (NEGATIVE) 06/03/17 19:31 Hyaline Casts Rare /LPF (NEGATIVE) 06/03/17 19:31 Urine Mucus Moderate /HPF (NEGATIVE) 06/03/17 19:31 Urine Yeast Few /HPF (NEGATIVE) 06/03/17 19:31 Ur Culture Indicated? No/not indicated 06/03/17 19:31 Urine Opiates Screen Negative (NEG=<300) 06/03/17 19:31 Urine Methadone Screen Negative (NEG=<300) 06/03/17 19:31 Ur Barbiturates Screen Negative (NEG=<200) 06/03/17 19:31 Ur Phencyclidine Scrn Negative (NEG=<25) 06/03/17 19:31 Ur Amphetamines Screen Negative (NEG=<1000) 06/03/17 19:31 U Benzodiazepines Scrn Negative (NEG=<200) 06/03/17 19:31 Urine Cocaine Screen Negative (NEG=<300) 06/03/17 19:31 U Marijuana (THC) Screen Negative (NEG=<50) 06/03/17 19:31 - Plan (1) Acute pulmonary thromboembolism Status: Acute Plan: Heparin gtt, XARELTO 15MG BID, CHECK HYPER COAG PANEL, CONTINUE TO MONITOR (2) Essential hypertension Status: Acute Plan: monitor BP. Administer anti-hypertensive meds. 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
[2017-06-05] MEDS ORDERED: GLUCOPHAGE ONE (21:06)
[2017-06-05] MEDS: MILK OF MAGNESIA PO SCH (21:21)
[2017-06-05] MEDS: LANTUS SC SCH (21:21)
[2017-06-05] MEDS: LIPITOR TAB 20 MG PO SCH (21:22)
[2017-06-05] MEDS: COLACE CAP 100 MG PO SCH (21:22)
[2017-06-06] MEDS: NS 1000 ML 1,000 ML IV SCH ×2 (00:10→13:58)
[2017-06-06] MEDS: NORCO 7.5/325 MG TAB PO PRN ×3 (03:01→21:02)
[2017-06-06] MEDS: MORPHINE SULFATE INJ 2 MG INJ IVP PRN ×3 (04:13→19:28)
[2017-06-06 05:14] LABS: ALANINE AMINOTRANSFERASE 12 Units/L (12-78); ALBUMIN 2.2 g/dL (3.4-5.0); ALKALINE PHOSPHATASE 102 Units/L (46-116); ASPARTATE AMINO TRANSFERASE 16 Units/L (15-37); BLOOD UREA NITROGEN 10 mg/dL (7-18); CALCIUM 8.4 mg/dL (8.5-10.1); CARBON DIOXIDE 26.2 mmol/L (21-32); CHLORIDE 104 mmol/L (98-107); COR CA(FOR HYPOALB) 9.8 mg/dL (8.5-10.1); COR NA(FOR HYPERGLY) 140 mmol/L (136-145); CREATININE 1.04 mg/dL (0.55-1.02); SODIUM 139 mmol/L (136-145); TOTAL PROTEIN 6.6 g/dL (6.4-8.2); eGFR BLACK RACES > 60 (>60); eGFR NON BLACK RACES > 60 (>60)
[2017-06-06] MEDS ORDERED: MAGNESIUM SULFATE 1 GM/100 mL PREMIX 1 GM/100 ML BAG IV PRN (05:26)
[2017-06-06] MEDS ORDERED: MAG-OX TAB PO PRN (05:26)
[2017-06-06] MEDS ORDERED: K-LYTE EFFERVESCENT PO PRN (05:26)
[2017-06-06] MEDS: VISTARIL PO PRN (06:01)
[2017-06-06] MEDS: NEURONTIN CAP 100 MG PO SCH ×3 (06:04→21:01)
[2017-06-06] MEDS: K-RIDER 10 MEQ/NS 100 ML 10 MEQ/100 ML BAG IV PRN ×4 (06:05→10:57)
[2017-06-06 06:09] LABS: BASOPHILS # (AUTO) 0.1 X10^3/uL (0.0-0.1); BASOPHILS % (AUTO) 1.4 % (0.2-1.0); EOSINOPHILS # (AUTO) 0.1 x10^3/uL (0.0-0.2); HEMATOCRIT 30.7 % (36.0-47.0); HEMOGLOBIN 9.7 g/dL (12.0-16.0); LYMPHOCYTES # (AUTO) 1.2 X10^3/uL (1.3-2.9); LYMPHOCYTES % (AUTO) 13.4 % (21.0-51.0); MEAN CORPUSCULAR HEMOGLOBIN 22.2 pg (27.0-34.0); MEAN CORPUSCULAR HGB CONC 31.7 g/dL (33.0-35.0); MEAN PLATELET VOLUME 8.8 fL (7.4-11.0); MONOCYTES # (AUTO) 0.6 x10^3/uL (0.3-0.8); MONOCYTES % (AUTO) 6.1 % (0.0-13.0); NEUTROPHILS % (AUTO) 78.1 % (42.0-75.0); PLATELET COUNT 273 X10^3/uL (150.0-450.0); RED BLOOD COUNT 4.38 X10^6/uL (3.5-5.4); RED CELL DISTRIBUTION WIDTH 15.5 % (11.6-16.5)
[2017-06-06 06:37] LABS: HYPOCHROMASIA 1+; PLATELET MORPHOLOGY COMMENT NORMAL (NORMAL)
[2017-06-06 06:38] LABS: MICROCYTOSIS SLIGHT
[2017-06-06] MEDS ORDERED: GLUCOPHAGE ONE ×2 (08:14→20:43)
[2017-06-06] MEDS: DAPAGLIFLOZIN PROPANEDIOL 10 MG PO SCH (08:21)
[2017-06-06] MEDS: GLUCOPHAGE PO SCH ×2 (08:21→21:02)
[2017-06-06] MEDS: PROTONIX INJ 40 MG VIAL IVP SCH (08:21)
[2017-06-06] MEDS: XARELTO PO SCH ×2 (08:21→21:02)
[2017-06-06] MEDS: ULORIC PO SCH (08:21)
[2017-06-06] MEDS: ZESTORETIC 20/25 MG PO SCH (08:21)
--- NOTE | 2017-06-06 08:25 | PCM.PROG ---
Progress Note - Progress Note for Day of Date: 06/06/17 - Subjective Subjective: MS. HOFFMAN WAS ADMITTED FOR ACUTE PULMONARY EMBOLISM AND ABDOMINAL PAIN. TODAY, SHE IS ALERT AND ORIENTED, LYING IN BED ON MORNING ROUNDS. SHE CONTINUES WITH COMPLAINTS OF SHORTNESS OF BREATH. SHE DENIES ABDOMINAL PAIN THIS MORNING. ON EXAMINATION, LUNG SOUNDS ARE DIMINISHED. ABDOMEN IS ROUND, SOFT , AND NON-TENDER. NORMAL BOWEL SOUNDS ARE NOTED IN ALL QUADRANTS. SHE CONTINUES WITH PAIN IN LOWER EXTREMITIES. SHE IS UTILIZING OXYGEN VIA NASAL CANNULA AT 2L/ MIN. HER VITAL SIGNS THIS MORNING ARE 97.8-83-18-100%-132/66. A CBC AND CMP WERE OBTAINED THIS MORNING. ABNORMAL LAB RESULTS INCLUDE THE FOLLOWING: HGB 9.7 , HCT 30.7, POTASSIUM 3.1, CREATININE 1.04, GLUCOSE 127, CALCIUM 8.4, ALBUMIN 2.2, PTT 133.4. A HYPER COAG PANEL WAS DRAWN AND RESULTS ARE PENDING. TODAY, WE WILL DISCONTINUE THE HEPARIN DRIP. WE PLAN TO FOLLOW UP WITH AM LABS AND CONTINUE TO MONITOR PATIENT. - Past Medical Family Social History Past Med/Fam/Surg Hx: No changes since H&P Allergies: Allergies No Known Drug Allergies Allergy (Verified 06/03/17 19:40) - Review of Systems ROS: No change since H&P - Vital Signs and I&O's Vital Signs: Temperature 97.6 F Pulse Rate [Apical] 87 Pulse Rate 103 Respiratory Rate 12 Blood Pressure [Right Arm] 117/59 Blood Pressure [Left Arm] 141/73 Blood Pressure 197/99 O2 Sat by Pulse Oximetry 100 Intake and Output: Intake & Output 06/03/17 06/04/17 06/05/17 06/06/17 11:59 11:59 11:59 11:59 Intake Total 2121 4996.8 4172.2 Output Total 1000 Balance 2121 3996.8 4172.2 - Physical Exam Oriented: Normal Eyes: Normal Ear: Normal Nose: Normal Throat: Normal Respiratory: Diminished Cardiovascular: Edema : Normal Auscultation: Bowel Sounds: Normal Palpation: Normal Tenderness: Normal Skin: Normal Musculoskeletal: Leg, Foot, Tender Psychiatric: Normal Mood Description: Calm Affect: Normal Speech Pattern: Clear, Appropriate - Laboratory and Diagnostics Result Diagrams: 06/06/17 04:50 06/06/17 04:50 Labs: Laboratory WBC 9.0 X10^3/uL (3.6-10.0) 06/06/17 04:50 RBC 4.38 X10^6/uL (3.5-5.4) 06/06/17 04:50 Hgb 9.7 g/dL (12.0-16.0) L 06/06/17 04:50 Hct 30.7 % (36.0-47.0) L 06/06/17 04:50 MCV 70.0 fL (80.0-100.0) L 06/06/17 04:50 MCH 22.2 pg (27.0-34.0) L 06/06/17 04:50 MCHC 31.7 g/dL (33.0-35.0) L 06/06/17 04:50 RDW 15.5 % (11.6-16.5) 06/06/17 04:50 Plt Count 273 X10^3/uL (150.0-450.0) 06/06/17 04:50 Plt Count Comment Adequate (ADEQUATE) 06/06/17 04:50 MPV 8.8 fL (7.4-11.0) 06/06/17 04:50 Neut % 78.1 % (42.0-75.0) H 06/06/17 04:50 Lymph % 13.4 % (21.0-51.0) L 06/06/17 04:50 [place] % 6.1 % (0.0-13.0) 06/06/17 04:50 Eos % 1.0 % (0.9-2.9) 06/06/17 04:50 Baso % 1.4 % (0.2-1.0) H 06/06/17 04:50 Neut # 7.0 x10^3/uL (2.2-4.8) H 06/06/17 04:50 Lymph # 1.2 X10^3/uL (1.3-2.9) L 06/06/17 04:50 [place] # 0.6 x10^3/uL (0.3-0.8) 06/06/17 04:50 Eos # 0.1 x10^3/uL (0.0-0.2) 06/06/17 04:50 Baso # 0.1 X10^3/uL (0.0-0.1) 06/06/17 04:50 Absolute Nucleated RBC 0.1 /100WBC 06/06/17 04:50 Plt Morphology Comment Normal (NORMAL) 06/06/17 04:50 RBC Morphology Abnormal (NORMAL) A 06/06/17 04:50 Hypochromasia 1+ A 06/06/17 04:50 Microcytosis Slight A 06/06/17 04:50 ESR 78 MM/HOUR (0-20) H 06/05/17 10:25 INR Target Range - 06/03/17 14:40 INR 0.98 (0.8-1.3) 06/03/17 14:40 PTT 133.4 SECONDS (22.9-36.5) H 06/06/17 06:50 PTT Comment - 06/06/17 06:50 D-Dimer 1680 ng/mL (0-400) H* 06/03/17 14:40 Sodium 139 mmol/L (136-145) 06/06/17 04:50 Corrected Sodium 140 mmol/L (136-145) 06/06/17 04:50 Potassium 3.1 mmol/L (3.5-5.1) L 06/06/17 04:50 Chloride 104 mmol/L (98-107) 06/06/17 04:50 Carbon Dioxide 26.2 mmol/L (21-32) 06/06/17 04:50 BUN 10 mg/dL (7-18) 06/06/17 04:50 Creatinine 1.04 mg/dL (0.55-1.02) H 06/06/17 04:50 Est GFR (MDRD) Af Amer > 60 (>60) 06/06/17 04:50 Est GFR (MDRD) Non-Af > 60 (>60) 06/06/17 04:50 Glucose 127 mg/dL (65-99) H 06/06/17 04:50 POC Glucose (mg/dL) 131 mg/dL (65-99) H 06/06/17 06:16 Calcium 8.4 mg/dL (8.5-10.1) L 06/06/17 04:50 Corrected Calcium 9.8 mg/dL (8.5-10.1) 06/06/17 04:50 Magnesium 1.9 mg/dL (1.7-2.9) 06/06/17 04:50 Total Bilirubin 0.20 mg/dL (0.2-1.0) 06/06/17 04:50 AST 16 Units/L (15-37) 06/06/17 04:50 ALT 12 Units/L (12-78) 06/06/17 04:50 Alkaline Phosphatase 102 Units/L (46-116) 06/06/17 04:50 C-Reactive Protein 22.20 mg/L (0-3.0) H 06/05/17 10:25 Total Protein 6.6 g/dL (6.4-8.2) 06/06/17 04:50 Albumin 2.2 g/dL (3.4-5.0) L 06/06/17 04:50 Globulin 4.4 g/dL (2.5-4.5) 06/06/17 04:50 Albumin/Globulin Ratio 0.5 Ratio (1.1-2.1) L 06/06/17 04:50 Amylase 136 Units/L (25-115) H 06/03/17 14:40 Lipase 110 Units/L (73-393) 06/03/17 14:40 HCG, Qual Negative <10 mIU/mL 06/03/17 14:40 Specimen Type Random urine 06/03/17 19:31 Urine Color Yellow (YELLOW) 06/03/17 19:31 Urine Appearance Clear (CLEAR) 06/03/17 19:31 Urine pH 5.0 (5.0 - 8.0) 06/03/17 19:31 Ur Specific [place] 1.010 (1.000-1.030) 06/03/17 19:31 Urine Protein 4+ (NEGATIVE) 06/03/17 19:31 Urine Glucose (UA) 4+ (NEGATIVE) 06/03/17 19:31 Urine Ketones 2+ (NEGATIVE) 06/03/17 19:31 Urine Occult Blood 2+ (NEGATIVE) 06/03/17 19:31 Urine Nitrite Negative (NEGATIVE) 06/03/17 19:31 Urine Bilirubin Negative (NEGATIVE) 06/03/17 19:31 Urine Urobilinogen Normal (NORMAL) 06/03/17 19:31 Ur Leukocyte Esterase Negative (NEGATIVE) 06/03/17 19:31 Urine RBC 02 - 05 /HPF (NEGATIVE) 06/03/17 19:31 Urine WBC 01 - 03 /HPF (NEGATIVE) 06/03/17 19:31 Ur Squamous Epith Cells Few /HPF (NEGATIVE) 06/03/17 19:31 Amorphous Sediment Trace /HPF (NEGATIVE) 06/03/17 19:31 Urine Bacteria Trace /HPF (NEGATIVE) 06/03/17 19:31 Hyaline Casts Rare /LPF (NEGATIVE) 06/03/17 19:31 Urine Mucus Moderate /HPF (NEGATIVE) 06/03/17 19:31 Urine Yeast Few /HPF (NEGATIVE) 06/03/17 19:31 Ur Culture Indicated? No/not indicated 06/03/17 19:31 Urine Opiates Screen Negative (NEG=<300) 06/03/17 19:31 Urine Methadone Screen Negative (NEG=<300) 06/03/17 19:31 Ur Barbiturates Screen Negative (NEG=<200) 06/03/17 19:31 Ur Phencyclidine Scrn Negative (NEG=<25) 06/03/17 19:31 Ur Amphetamines Screen Negative (NEG=<1000) 06/03/17 19: U Benzodiazepines Scrn Negative (NEG=<200) 06/03/17 19:31 Urine Cocaine Screen Negative (NEG=<300) 06/03/17 19:31 U Marijuana (THC) Screen Negative (NEG=<50) 06/03/17 19:31 - Plan (1) Acute pulmonary thromboembolism Status: Acute Plan: HXARELTO 15MG BID, CHECK HYPER COAG PANEL, CONTINUE TO MONITOR (2) Essential hypertension Status: Acute Plan: monitor BP. Administer anti-hypertensive meds. (3) Left ovarian cyst Status: Acute Plan: SLIP SHEETER CONSULT, CONTINUE TO MONITOR
[2017-06-06] MEDS: SNACK - Diabetic Appropriate PO SCH (20:36)
[2017-06-06] MEDS: COLACE CAP 100 MG PO SCH (21:01)
[2017-06-06] MEDS: LIPITOR TAB 20 MG PO SCH (21:01)
[2017-06-06] MEDS: MILK OF MAGNESIA PO SCH (21:01)
[2017-06-06] MEDS: LANTUS SC SCH (21:02)
[2017-06-07] MEDS: MORPHINE SULFATE INJ 2 MG INJ IVP PRN ×4 (01:46→23:45)
[2017-06-07] MEDS: NEURONTIN CAP 100 MG PO SCH ×3 (05:08→21:17)
[2017-06-07] MEDS: NS 1000 ML 1,000 ML IV SCH ×3 (05:08→21:25)
[2017-06-07] MEDS: NORCO 7.5/325 MG TAB PO PRN ×3 (05:08→21:17)
[2017-06-07 05:47] LABS: ALANINE AMINOTRANSFERASE 10 Units/L (12-78); ALKALINE PHOSPHATASE 96 Units/L (46-116); ASPARTATE AMINO TRANSFERASE 17 Units/L (15-37); BLOOD UREA NITROGEN 11 mg/dL (7-18); CALCIUM 8.8 mg/dL (8.5-10.1); CHLORIDE 104 mmol/L (98-107); COR CA(FOR HYPOALB) 10.4 mg/dL (8.5-10.1); COR NA(FOR HYPERGLY) 137 mmol/L (136-145); CREATININE 1.01 mg/dL (0.55-1.02); SODIUM 137 mmol/L (136-145); TOTAL PROTEIN 6.2 g/dL (6.4-8.2); eGFR BLACK RACES > 60 (>60); eGFR NON BLACK RACES > 60 (>60)
[2017-06-07 05:54] LABS: BASOPHILS % (AUTO) 0.6 % (0.2-1.0); EOSINOPHILS # (AUTO) 0.1 x10^3/uL (0.0-0.2); EOSINOPHILS % (AUTO) 1.5 % (0.9-2.9); HEMATOCRIT 30.3 % (36.0-47.0); HEMOGLOBIN 9.5 g/dL (12.0-16.0); LYMPHOCYTES # (AUTO) 1.4 X10^3/uL (1.3-2.9); MEAN CORPUSCULAR HEMOGLOBIN 22.3 pg (27.0-34.0); MEAN CORPUSCULAR HGB CONC 31.4 g/dL (33.0-35.0); MEAN PLATELET VOLUME 8.2 fL (7.4-11.0); MONOCYTES # (AUTO) 0.5 x10^3/uL (0.3-0.8); MONOCYTES % (AUTO) 6.2 % (0.0-13.0); NEUTROPHILS # (AUTO) 5.3 x10^3/uL (2.2-4.8); NEUTROPHILS % (AUTO) 72.7 % (42.0-75.0); PLATELET COUNT 231 X10^3/uL (150.0-450.0); RED BLOOD COUNT 4.27 X10^6/uL (3.5-5.4); RED CELL DISTRIBUTION WIDTH 15.5 % (11.6-16.5); WHITE BLOOD COUNT 7.3 X10^3/uL (3.6-10.0)
[2017-06-07 06:08] LABS: HYPOCHROMASIA 1+; MICROCYTOSIS 1+; PLATELET MORPHOLOGY COMMENT NORMAL (NORMAL)
[2017-06-07] MEDS: K-RIDER 10 MEQ/NS 100 ML 10 MEQ/100 ML BAG IV PRN ×4 (06:35→13:00)
[2017-06-07] MEDS ORDERED: GLUCOPHAGE ONE ×2 (07:52→20:25)
[2017-06-07] MEDS: DAPAGLIFLOZIN PROPANEDIOL 10 MG PO SCH (08:19)
[2017-06-07] MEDS: ULORIC PO SCH (08:20)
[2017-06-07] MEDS: ALBUMIN HUMAN 25%- 100ML 100 ML IV SCH ×2 (08:21→08:23)
[2017-06-07] MEDS: PROTONIX INJ 40 MG VIAL IVP SCH (08:22)
[2017-06-07] MEDS: GLUCOPHAGE PO SCH ×2 (08:23→21:18)
[2017-06-07] MEDS: ZESTORETIC 20/25 MG PO SCH (08:23)
[2017-06-07] MEDS: XARELTO PO SCH ×2 (08:23→21:18)
--- NOTE | 2017-06-07 11:19 | PCM.PROG ---
Progress Note - Progress Note for Day of Date: 06/07/17 - Subjective Subjective: MS. HOFFMAN WAS ADMITTED FOR ACUTE PULMONARY EMBOLISM AND ABDOMINAL PAIN. TODAY, SHE IS ALERT AND ORIENTED, LYING IN BED ON MORNING ROUNDS. SHE CONTINUES WITH COMPLAINTS OF SHORTNESS OF BREATH, MILD ABDOMINAL TENDERNESS, AND WEAKNESS. ON EXAMINATION, LUNG SOUNDS ARE DIMINISHED. ABDOMEN IS ROUND, SOFT , AND TENDER. NORMAL BOWEL SOUNDS ARE NOTED IN ALL QUADRANTS. SHE CONTINUES WITH PAIN IN LOWER EXTREMITIES. SHE IS UTILIZING OXYGEN VIA NASAL CANNULA AT 2L/ MIN. HER VITAL SIGNS THIS MORNING ARE 97.6-80-12-99%-120/70. A CBC AND CMP WERE OBTAINED THIS MORNING. ABNORMAL LAB RESULTS INCLUDE THE FOLLOWING: HGB 9.5, HCT 30.3, POTASSIUM 3.1, GLUCOSE 116, ALT 10, TOTAL PROTEIN 6.2, ALBUMIN 2.0. A HYPER COAG PANEL WAS DRAWN AND RESULTS ARE PENDING. CONSULTED WITH PATIENT YESTERDAY. HE RECOMMENDED TO CONTINUE TO OBSERVE PATIENT FOR ABDOMINAL PAIN. HE DID NOT RECOMMEND SURGICAL INTERVENTION. TODAY, WE WILL START ALBUMIN 25% IV DAILY AND OBTAIN AN ECHOCARDIOGRAM. OTHERWISE, WE WILL CONTINUE WITH CURRENT PLAN OF CARE. WE PLAN TO FOLLOW UP WITH AM LABS AND CONTINUE TO MONITOR PATIENT. - Past Medical Family Social History Past Med/Fam/Surg Hx: No changes since H&P Allergies: Allergies No Known Drug Allergies Allergy (Verified 06/03/17 19:40) - Review of Systems ROS: No change since H&P - Vital Signs and I&O's Vital Signs: Temperature 97.1 F Pulse Rate [Apical] 87 Pulse Rate 103 Respiratory Rate 11 Blood Pressure [Right Arm] 157/67 Blood Pressure [Left Arm] 141/73 Blood Pressure 197/99 O2 Sat by Pulse Oximetry 98 Intake and Output: Intake & Output 06/04/17 06/05/17 06/06/17 06/07/17 11:59 11:59 11:59 11:59 Intake Total 2121 4996.8 4185.2 3465 Output Total 1000 Balance 2121 3996.8 4185.2 3465 - Physical Exam Oriented: Normal Eyes: Normal Ear: Normal Nose: Normal Throat: Normal Respiratory: Diminished Cardiovascular: Edema : Normal Auscultation: Bowel Sounds: Normal Palpation: Normal Tenderness: Normal Skin: Normal Musculoskeletal: Leg, Foot, Tender Psychiatric: Normal Mood Description: Calm Affect: Normal Speech Pattern: Clear, Appropriate - Laboratory and Diagnostics Result Diagrams: 06/08/17 05:05 06/08/17 05:05 Labs: Laboratory WBC 7.3 X10^3/uL (3.6-10.0) 06/07/17 05:00 RBC 4.27 X10^6/uL (3.5-5.4) 06/07/17 05:00 Hgb 9.5 g/dL (12.0-16.0) L 06/07/17 05:00 Hct 30.3 % (36.0-47.0) L 06/07/17 05:00 MCV 71.0 fL (80.0-100.0) L 06/07/17 05:00 MCH 22.3 pg (27.0-34.0) L 06/07/17 05:00 MCHC 31.4 g/dL (33.0-35.0) L 06/07/17 05:00 RDW 15.5 % (11.6-16.5) 06/07/17 05:00 Plt Count 231 X10^3/uL (150.0-450.0) 06/07/17 05:00 Plt Count Comment Adequate (ADEQUATE) 06/07/17 05:00 MPV 8.2 fL (7.4-11.0) 06/07/17 05:00 Neut % 72.7 % (42.0-75.0) 06/07/17 05:00 Lymph % 19.0 % (21.0-51.0) L 06/07/17 05:00 [place] % 6.2 % (0.0-13.0) 06/07/17 05:00 Eos % 1.5 % (0.9-2.9) 06/07/17 05:00 Baso % 0.6 % (0.2-1.0) 06/07/17 05:00 Neut # 5.3 x10^3/uL (2.2-4.8) H 06/07/17 05:00 Lymph # 1.4 X10^3/uL (1.3-2.9) 06/07/17 05:00 [place] # 0.5 x10^3/uL (0.3-0.8) 06/07/17 05:00 Eos # 0.1 x10^3/uL (0.0-0.2) 06/07/17 05:00 Baso # 0.0 X10^3/uL (0.0-0.1) 06/07/17 05:00 Absolute Nucleated RBC 0.1 /100WBC 06/07/17 05:00 Plt Morphology Comment Normal (NORMAL) 06/07/17 05:00 RBC Morphology Abnormal (NORMAL) A 06/07/17 05:00 Hypochromasia 1+ A 06/07/17 05:00 Microcytosis 1+ A 06/07/17 05:00 ESR 78 MM/HOUR (0-20) H 06/05/17 10:25 INR Target Range - 06/03/17 14:40 INR 0.98 (0.8-1.3) 06/03/17 14:40 PTT 133.4 SECONDS (22.9-36.5) H 06/06/17 06:50 PTT Comment - 06/06/17 06:50 D-Dimer 1680 ng/mL (0-400) H* 06/03/17 14:40 Sodium 137 mmol/L (136-145) 06/07/17 05:00 Corrected Sodium 137 mmol/L (136-145) 06/07/17 05:00 Potassium 3.1 mmol/L (3.5-5.1) L 06/07/17 05:00 Chloride 104 mmol/L (98-107) 06/07/17 05:00 Carbon Dioxide 26.0 mmol/L (21-32) 06/07/17 05:00 BUN 11 mg/dL (7-18) 06/07/17 05:00 Creatinine 1.01 mg/dL (0.55-1.02) 06/07/17 05:00 Est GFR (MDRD) Af Amer > 60 (>60) 06/07/17 05:00 Est GFR (MDRD) Non-Af > 60 (>60) 06/07/17 05:00 Glucose 116 mg/dL (65-99) H 06/07/17 05:00 POC Glucose (mg/dL) 117 mg/dL (65-99) H 06/07/17 06:10 Calcium 8.8 mg/dL (8.5-10.1) 06/07/17 05:00 Corrected Calcium 10.4 mg/dL (8.5-10.1) H 06/07/17 05:00 Magnesium 1.9 mg/dL (1.7-2.9) 06/06/17 04:50 Total Bilirubin 0.20 mg/dL (0.2-1.0) 06/07/17 05:00 AST 17 Units/L (15-37) 06/07/17 05:00 ALT 10 Units/L (12-78) L 06/07/17 05:00 Alkaline Phosphatase 96 Units/L (46-116) 06/07/17 05:00 C-Reactive Protein 22.20 mg/L (0-3.0) H 06/05/17 10:25 Total Protein 6.2 g/dL (6.4-8.2) L 06/07/17 05:00 Albumin 2.0 g/dL (3.4-5.0) L 06/07/17 05:00 Globulin 4.2 g/dL (2.5-4.5) 06/07/17 05:00 Albumin/Globulin Ratio 0.5 Ratio (1.1-2.1) L 06/07/17 05:00 Amylase 136 Units/L (25-115) H 06/03/17 14:40 Lipase 110 Units/L (73-393) 06/03/17 14:40 HCG, Qual Negative <10 mIU/mL 06/03/17 14:40 Specimen Type Random urine 06/03/17 19:31 Urine Color Yellow (YELLOW) 06/03/17 19:31 Urine Appearance Clear (CLEAR) 06/03/17 19:31 Urine pH 5.0 (5.0 - 8.0) 06/03/17 19:31 Ur Specific [place] 1.010 (1.000-1.030) 06/03/17 19:31 Urine Protein 4+ (NEGATIVE) 06/03/17 19:31 Urine Glucose (UA) 4+ (NEGATIVE) 06/03/17 19:31 Urine Ketones 2+ (NEGATIVE) 06/03/17 19:31 Urine Occult Blood 2+ (NEGATIVE) 06/03/17 19:31 Urine Nitrite Negative (NEGATIVE) 06/03/17 19:31 Urine Bilirubin Negative (NEGATIVE) 06/03/17 19:31 Urine Urobilinogen Normal (NORMAL) 06/03/17 19:31 Ur Leukocyte Esterase Negative (NEGATIVE) 06/03/17 19:31 Urine RBC 02 - 05 /HPF (NEGATIVE) 06/03/17 19:31 Urine WBC 01 - 03 /HPF (NEGATIVE) 06/03/17 19:31 Ur Squamous Epith Cells Few /HPF (NEGATIVE) 06/03/17 19:31 Amorphous Sediment Trace /HPF (NEGATIVE) 06/03/17 19:31 Urine Bacteria Trace /HPF (NEGATIVE) 06/03/17 19:31 Hyaline Casts Rare /LPF (NEGATIVE) 06/03/17 19:31 Urine Mucus Moderate /HPF (NEGATIVE) 06/03/17 19:31 Urine Yeast Few /HPF (NEGATIVE) 06/03/17 19:31 Ur Culture Indicated? No/not indicated 06/03/17 19:31 Urine Opiates Screen Negative (NEG=<300) 06/03/17 19:31 Urine Methadone Screen Negative (NEG=<300) 06/03/17 19:31 Ur Barbiturates Screen Negative (NEG=<200) 06/03/17 19:31 Ur Phencyclidine Scrn Negative (NEG=<25) 06/03/17 19:31 Ur Amphetamines Screen Negative (NEG=<1000) 06/03/17 19:31 U Benzodiazepines Scrn Negative (NEG=<200) 06/03/17 19:31 Urine Cocaine Screen Negative (NEG=<300) 06/03/17 19:31 U Marijuana (THC) Screen Negative (NEG=<50) 06/03/17 19:31 - Plan (1) Acute pulmonary thromboembolism Status: Acute Plan: XARELTO 15MG BID, CHECK HYPER COAG PANEL, CONTINUE TO MONITOR (2) Essential hypertension Status: Acute Plan: monitor BP. Administer anti-hypertensive meds. (3) Left ovarian cyst Status: Acute Plan: ADMINISTER PAIN MEDS PRN, CONTINUE TO MONITOR (4) Hypoalbuminemia Status: Acute Plan: ALBUMIN 25% IV DAILY, CONTINUE TO MONITOR
[2017-06-07] MEDS: SNACK - Diabetic Appropriate PO SCH (21:10)
[2017-06-07] MEDS: LANTUS SC SCH (21:11)
[2017-06-07] MEDS: MILK OF MAGNESIA PO SCH (21:17)
[2017-06-07] MEDS: COLACE CAP 100 MG PO SCH (21:18)
[2017-06-07] MEDS: LIPITOR TAB 20 MG PO SCH (21:18)
[2017-06-07] MEDS: VISTARIL PO PRN (21:18)
[2017-06-08] MEDS: NS 1000 ML 1,000 ML IV SCH ×3 (05:50→18:04)
[2017-06-08] MEDS: NEURONTIN CAP 100 MG PO SCH ×3 (05:51→21:49)
[2017-06-08] MEDS: NORCO 7.5/325 MG TAB PO PRN ×3 (05:51→20:36)
[2017-06-08 06:09] LABS: BASOPHILS # (AUTO) 0.1 X10^3/uL (0.0-0.1); BASOPHILS % (AUTO) 0.8 % (0.2-1.0); EOSINOPHILS # (AUTO) 0.1 x10^3/uL (0.0-0.2); HEMATOCRIT 29.7 % (36.0-47.0); HEMOGLOBIN 9.3 g/dL (12.0-16.0); LYMPHOCYTES # (AUTO) 1.7 X10^3/uL (1.3-2.9); MEAN CORPUSCULAR HEMOGLOBIN 21.9 pg (27.0-34.0); MEAN CORPUSCULAR HGB CONC 31.3 g/dL (33.0-35.0); MEAN CORPUSCULAR VOLUME 69.9 fL (80.0-100.0); MEAN PLATELET VOLUME 8.3 fL (7.4-11.0); MONOCYTES # (AUTO) 0.5 x10^3/uL (0.3-0.8); MONOCYTES % (AUTO) 8.1 % (0.0-13.0); NEUTROPHILS # (AUTO) 4.3 x10^3/uL (2.2-4.8); NEUTROPHILS % (AUTO) 64.1 % (42.0-75.0); PLATELET COUNT 263 X10^3/uL (150.0-450.0); RED BLOOD COUNT 4.25 X10^6/uL (3.5-5.4); RED CELL DISTRIBUTION WIDTH 15.3 % (11.6-16.5); WHITE BLOOD COUNT 6.7 X10^3/uL (3.6-10.0)
[2017-06-08 06:20] LABS: ALANINE AMINOTRANSFERASE 18 Units/L (12-78); ALBUMIN 2.4 g/dL (3.4-5.0); ALKALINE PHOSPHATASE 88 Units/L (46-116); ASPARTATE AMINO TRANSFERASE 29 Units/L (15-37); BLOOD UREA NITROGEN 10 mg/dL (7-18); CALCIUM 9.1 mg/dL (8.5-10.1); CARBON DIOXIDE 28.9 mmol/L (21-32); CHLORIDE 105 mmol/L (98-107); COR CA(FOR HYPOALB) 10.4 mg/dL (8.5-10.1); SODIUM 139 mmol/L (136-145); TOTAL PROTEIN 6.7 g/dL (6.4-8.2); eGFR BLACK RACES > 60 (>60); eGFR NON BLACK RACES > 60 (>60)
[2017-06-08 07:07] LABS: HYPOCHROMASIA 1+; MICROCYTOSIS 1+; PLATELET MORPHOLOGY COMMENT NORMAL (NORMAL)
[2017-06-08] MEDS ORDERED: GLUCOPHAGE ONE ×2 (08:10→20:19)
[2017-06-08] MEDS: XARELTO PO SCH ×2 (08:14→20:35)
[2017-06-08] MEDS: PROTONIX INJ 40 MG VIAL IVP SCH (08:14)
[2017-06-08] MEDS: ALBUMIN HUMAN 25%- 100ML 100 ML IV SCH (08:15)
[2017-06-08] MEDS: ULORIC PO SCH (08:15)
[2017-06-08] MEDS: GLUCOPHAGE PO SCH ×2 (08:15→20:34)
[2017-06-08] MEDS: DAPAGLIFLOZIN PROPANEDIOL 10 MG PO SCH (08:16)
[2017-06-08] MEDS: K-RIDER 10 MEQ/NS 100 ML 10 MEQ/100 ML BAG IV PRN ×2 (08:16→10:30)
[2017-06-08] MEDS: ZESTORETIC 20/25 MG PO SCH (08:16)
--- NOTE | 2017-06-08 09:19 | PCM.PROG ---
Progress Note - Progress Note for Day of Date: 06/08/17 - Subjective Subjective: MS. HOFFMAN WAS ADMITTED FOR ACUTE PULMONARY EMBOLISM AND ABDOMINAL PAIN. TODAY, SHE IS LYING IN BED WITH EYES CLOSED. SHE AWAKENS AND RESPONDS TO VERBAL STIMULI. PATIENTS FAMILY MEMBER IS AT BEDSIDE. TODAY, SHE IS NOTED WITH COMPLAINTS OF GENERALIZED ACHING AND ABDOMINAL PAIN. SHE CONTINUES WITH SHORTNESS OF BREATH, BUT REPORTS THAT IT IS IMPROVING. ON EXAMINATION, LUNG SOUNDS ARE DIMINISHED. ABDOMEN IS ROUND, SOFT, AND TENDER. NORMAL BOWEL SOUNDS ARE NOTED IN ALL QUADRANTS. SHE IS UTILIZING OXYGEN VIA NASAL CANNULA AT 2L/ MIN. HER VITAL SIGNS THIS MORNING ARE 97.7-107-18-97%-157/74. A CBC AND CMP WERE OBTAINED THIS MORNING. ABNORMAL LAB RESULTS INCLUDE THE FOLLOWING: HGB 9.3 , HCT 29.7, POTASSIUM 3.4, ALBUMIN 2.4. HYPER COAG RESULTS ARE PENDING. AN ECHO WAS OBTAINED YESTERDAY AND REPORTED AN EJECTION FRACTION OF 72% AND OTHERWISE NORMAL. PATIENTS POTASSIUM CONTINUES TO TREND LOW DAILY. WE WILL START KDUR 20MEQ BID. OTHERWISE, WE WILL CONTINUE WITH CURRENT PLAN OF CARE. WE PLAN TO FOLLOW UP WITH AM LABS AND CONTINUE TO MONITOR PATIENT. - Past Medical Family Social History Past Med/Fam/Surg Hx: No changes since H&P Allergies: Allergies No Known Drug Allergies Allergy (Verified 06/03/17 19:40) - Review of Systems ROS: No change since H&P - Vital Signs and I&O's Vital Signs: Temperature 97.0 F Pulse Rate [Apical] 85 Pulse Rate 103 Respiratory Rate 14 Blood Pressure [Right Arm] 123/59 Blood Pressure [Left Arm] 133/68 Blood Pressure 197/99 O2 Sat by Pulse Oximetry 100 Intake and Output: Intake & Output 06/05/17 06/06/17 06/07/17 06/08/17 11:59 11:59 11:59 11:59 Intake Total 4996.8 4185.2 3465 2992 Output Total 1000 Balance 3996.8 4185.2 3465 2992 - Physical Exam Oriented: Normal Eyes: Normal Ear: Normal Nose: Normal Throat: Normal Respiratory: Diminished Cardiovascular: Normal : Normal Auscultation: Bowel Sounds: Normal Palpation: Normal Tenderness: Normal Skin: Normal Musculoskeletal: Leg, Foot, Tender Psychiatric: Normal Mood Description: Calm Affect: Normal Speech Pattern: Clear, Appropriate - Laboratory and Diagnostics Result Diagrams: 06/08/17 05:05 06/08/17 05:05 Labs: Laboratory WBC 6.7 X10^3/uL (3.6-10.0) 06/08/17 05:05 RBC 4.25 X10^6/uL (3.5-5.4) 06/08/17 05:05 Hgb 9.3 g/dL (12.0-16.0) L 06/08/17 05:05 Hct 29.7 % (36.0-47.0) L 06/08/17 05:05 MCV 69.9 fL (80.0-100.0) L 06/08/17 05:05 MCH 21.9 pg (27.0-34.0) L 06/08/17 05:05 MCHC 31.3 g/dL (33.0-35.0) L 06/08/17 05:05 RDW 15.3 % (11.6-16.5) 06/08/17 05:05 Plt Count 263 X10^3/uL (150.0-450.0) 06/08/17 05:05 Plt Count Comment Adequate (ADEQUATE) 06/08/17 05:05 MPV 8.3 fL (7.4-11.0) 06/08/17 05:05 Neut % 64.1 % (42.0-75.0) 06/08/17 05:05 Lymph % 25.0 % (21.0-51.0) 06/08/17 05:05 [place] % 8.1 % (0.0-13.0) 06/08/17 05:05 Eos % 2.0 % (0.9-2.9) 06/08/17 05:05 Baso % 0.8 % (0.2-1.0) 06/08/17 05:05 Neut # 4.3 x10^3/uL (2.2-4.8) 06/08/17 05:05 Lymph # 1.7 X10^3/uL (1.3-2.9) 06/08/17 05:05 [place] # 0.5 x10^3/uL (0.3-0.8) 06/08/17 05:05 Eos # 0.1 x10^3/uL (0.0-0.2) 06/08/17 05:05 Baso # 0.1 X10^3/uL (0.0-0.1) 06/08/17 05:05 Absolute Nucleated RBC 0.0 /100WBC 06/08/17 05:05 Plt Morphology Comment Normal (NORMAL) 06/08/17 05:05 RBC Morphology Abnormal (NORMAL) A 06/08/17 05:05 Hypochromasia 1+ A 06/08/17 05:05 Microcytosis 1+ A 06/08/17 05:05 ESR 78 MM/HOUR (0-20) H 06/05/17 10:25 INR Target Range - 06/03/17 14:40 INR 0.98 (0.8-1.3) 06/03/17 14:40 PTT 133.4 SECONDS (22.9-36.5) H 06/06/17 06:50 PTT Comment - 06/06/17 06:50 D-Dimer 1680 ng/mL (0-400) H* 06/03/17 14:40 Sodium 139 mmol/L (136-145) 06/08/17 05:05 Corrected Sodium TNP 06/08/17 05:05 Potassium 3.4 mmol/L (3.5-5.1) L 06/08/17 05:05 Chloride 105 mmol/L (98-107) 06/08/17 05:05 Carbon Dioxide 28.9 mmol/L (21-32) 06/08/17 05:05 BUN 10 mg/dL (7-18) 06/08/17 05:05 Creatinine 0.90 mg/dL (0.55-1.02) 06/08/17 05:05 Est GFR (MDRD) Af Amer > 60 (>60) 06/08/17 05:05 Est GFR (MDRD) Non-Af > 60 (>60) 06/08/17 05:05 Glucose 81 mg/dL (65-99) 06/08/17 05:05 POC Glucose (mg/dL) 84 mg/dL (65-99) 06/08/17 05:55 Calcium 9.1 mg/dL (8.5-10.1) 06/08/17 05:05 Corrected Calcium 10.4 mg/dL (8.5-10.1) H 06/08/17 05:05 Magnesium 1.9 mg/dL (1.7-2.9) 06/06/17 04:50 Total Bilirubin 0.20 mg/dL (0.2-1.0) 06/08/17 05:05 AST 29 Units/L (15-37) 06/08/17 05:05 ALT 18 Units/L (12-78) 06/08/17 05:05 Alkaline Phosphatase 88 Units/L (46-116) 06/08/17 05:05 C-Reactive Protein 22.20 mg/L (0-3.0) H 06/05/17 10:25 Total Protein 6.7 g/dL (6.4-8.2) 06/08/17 05:05 Albumin 2.4 g/dL (3.4-5.0) L 06/08/17 05:05 Globulin 4.3 g/dL (2.5-4.5) 06/08/17 05:05 Albumin/Globulin Ratio 0.6 Ratio (1.1-2.1) L 06/08/17 05:05 Amylase 136 Units/L (25-115) H 06/03/17 14:40 Lipase 110 Units/L (73-393) 06/03/17 14:40 HCG, Qual Negative <10 mIU/mL 06/03/17 14:40 Specimen Type Random urine 06/03/17 19:31 Urine Color Yellow (YELLOW) 06/03/17 19:31 Urine Appearance Clear (CLEAR) 06/03/17 19:31 Urine pH 5.0 (5.0 - 8.0) 06/03/17 19:31 Ur Specific [place] 1.010 (1.000-1.030) 06/03/17 19:31 Urine Protein 4+ (NEGATIVE) 06/03/17 19:31 Urine Glucose (UA) 4+ (NEGATIVE) 06/03/17 19:31 Urine Ketones 2+ (NEGATIVE) 06/03/17 19:31 Urine Occult Blood 2+ (NEGATIVE) 06/03/17 19:31 Urine Nitrite Negative (NEGATIVE) 06/03/17 19:31 Urine Bilirubin Negative (NEGATIVE) 06/03/17 19:31 Urine Urobilinogen Normal (NORMAL) 06/03/17 19:31 Ur Leukocyte Esterase Negative (NEGATIVE) 06/03/17 19:31 Urine RBC 02 - 05 /HPF (NEGATIVE) 06/03/17 19:31 Urine WBC 01 - 03 /HPF (NEGATIVE) 06/03/17 19:31 Ur Squamous Epith Cells Few /HPF (NEGATIVE) 06/03/17 19:31 Amorphous Sediment Trace /HPF (NEGATIVE) 06/03/17 19:31 Urine Bacteria Trace /HPF (NEGATIVE) 06/03/17 19:31 Hyaline Casts Rare /LPF (NEGATIVE) 06/03/17 19:31 Urine Mucus Moderate /HPF (NEGATIVE) 06/03/17 19:31 Urine Yeast Few /HPF (NEGATIVE) 06/03/17 19:31 Ur Culture Indicated? No/not indicated 06/03/17 19:31 Urine Opiates Screen Negative (NEG=<300) 06/03/17 19:31 Urine Methadone Screen Negative (NEG=<300) 06/03/17 19:31 Ur Barbiturates Screen Negative (NEG=<200) 06/03/17 19:31 Ur Phencyclidine Scrn Negative (NEG=<25) 06/03/17 19:31 Ur Amphetamines Screen Negative (NEG=<1000) 06/03/17 19:31 U Benzodiazepines Scrn Negative (NEG=<200) 06/03/17 19:31 Urine Cocaine Screen Negative (NEG=<300) 06/03/17 19:31 U Marijuana (THC) Screen Negative (NEG=<50) 06/03/17 19:31 - Plan (1) Acute pulmonary thromboembolism Status: Acute Plan: XARELTO 15MG BID, CHECK HYPER COAG PANEL, CONTINUE TO MONITOR (2) Essential hypertension Status: Acute Plan: monitor BP. Administer anti-hypertensive meds. (3) Left ovarian cyst Status: Acute Plan: ADMINISTER PAIN MEDS PRN, CONTINUE TO MONITOR (4) Hypoalbuminemia Status: Acute Plan: ALBUMIN 25% IV DAILY, CONTINUE TO MONITOR (5) Hypokalemia Status: Acute Plan: KDUR 20MEQ BID, POTASSIUM PROTOCOL, CONTINUE TO MONITOR
[2017-06-08] MEDS: K-DUR TAB 20 MEQ PO SCH ×2 (11:05→20:35)
[2017-06-08] MEDS: LIPITOR TAB 20 MG PO SCH (20:35)
[2017-06-08] MEDS: MILK OF MAGNESIA PO SCH (20:35)
[2017-06-08] MEDS: COLACE CAP 100 MG PO SCH (20:36)
[2017-06-08] MEDS: SNACK - Diabetic Appropriate PO SCH (20:43)
[2017-06-08] MEDS: LANTUS SC SCH (21:00)
[2017-06-08] MEDS: CATAPRES TAB 0.1 MG PO PRN (21:11)
[2017-06-08] MEDS: VISTARIL PO PRN (21:53)
[2017-06-09] MEDS: NS 1000 ML 1,000 ML IV SCH (01:11)
[2017-06-09] MEDS: NORCO 7.5/325 MG TAB PO PRN (04:45)
[2017-06-09 05:42] LABS: BASOPHILS # (AUTO) 0.1 X10^3/uL (0.0-0.1); BASOPHILS % (AUTO) 1.2 % (0.2-1.0); EOSINOPHILS # (AUTO) 0.1 x10^3/uL (0.0-0.2); EOSINOPHILS % (AUTO) 1.7 % (0.9-2.9); HEMATOCRIT 29.1 % (36.0-47.0); HEMOGLOBIN 9.2 g/dL (12.0-16.0); LYMPHOCYTES # (AUTO) 1.5 X10^3/uL (1.3-2.9); LYMPHOCYTES % (AUTO) 25.5 % (21.0-51.0); MEAN CORPUSCULAR HEMOGLOBIN 22.3 pg (27.0-34.0); MEAN CORPUSCULAR HGB CONC 31.8 g/dL (33.0-35.0); MEAN CORPUSCULAR VOLUME 70.2 fL (80.0-100.0); MEAN PLATELET VOLUME 8.3 fL (7.4-11.0); MONOCYTES # (AUTO) 0.5 x10^3/uL (0.3-0.8); MONOCYTES % (AUTO) 7.8 % (0.0-13.0); NEUTROPHILS # (AUTO) 3.8 x10^3/uL (2.2-4.8); NEUTROPHILS % (AUTO) 63.8 % (42.0-75.0); PLATELET COUNT 292 X10^3/uL (150.0-450.0); RED BLOOD COUNT 4.14 X10^6/uL (3.5-5.4); RED CELL DISTRIBUTION WIDTH 15.5 % (11.6-16.5)
[2017-06-09] MEDS: NEURONTIN CAP 100 MG PO SCH (05:52)
[2017-06-09 06:09] LABS: ALANINE AMINOTRANSFERASE 18 Units/L (12-78); ALBUMIN 2.7 g/dL (3.4-5.0); ALKALINE PHOSPHATASE 85 Units/L (46-116); ASPARTATE AMINO TRANSFERASE 29 Units/L (15-37); BLOOD UREA NITROGEN 11 mg/dL (7-18); CALCIUM 9.2 mg/dL (8.5-10.1); CARBON DIOXIDE 27.9 mmol/L (21-32); CHLORIDE 105 mmol/L (98-107); COR CA(FOR HYPOALB) 10.2 mg/dL (8.5-10.1); CREATININE 1.03 mg/dL (0.55-1.02); SODIUM 139 mmol/L (136-145); TOTAL PROTEIN 6.7 g/dL (6.4-8.2); eGFR BLACK RACES > 60 (>60); eGFR NON BLACK RACES > 60 (>60)
[2017-06-09 06:26] LABS: HYPOCHROMASIA 1+; PLATELET MORPHOLOGY COMMENT NORMAL (NORMAL)
[2017-06-09] MEDS ORDERED: GLUCOPHAGE ONE (09:03)
[2017-06-09] MEDS: ZESTORETIC 20/25 MG PO SCH (09:16)
[2017-06-09] MEDS: GLUCOPHAGE PO SCH (09:16)
[2017-06-09] MEDS: PROTONIX INJ 40 MG VIAL IVP SCH (09:16)
[2017-06-09] MEDS: XARELTO PO SCH (09:17)
[2017-06-09] MEDS: K-DUR TAB 20 MEQ PO SCH (09:17)
[2017-06-09] MEDS: ULORIC PO SCH (09:17)
[2017-06-09] MEDS: ALBUMIN HUMAN 25%- 100ML 100 ML IV SCH (09:17)
[2017-06-09] MEDS: DAPAGLIFLOZIN PROPANEDIOL 10 MG PO SCH (09:28)
[2017-06-09 13:22] VITALS: BP 136/74
[2017-06-12 06:11] LABS: ANTITHROMBIN III ACTIVITY 99 % (76-128)
[2017-06-12 06:12] LABS: ANTI-NUCLEAR ANTIBODY TEST None Detected (None Detected); APC RESISTANCE 3.13 (>=2.00); PROTEIN C ACTIVITY 156 % (83-168)
[2017-06-12 06:15] LABS: PROTHROMBIN G20210A Negative
[2017-06-12 06:26] LABS: PTT-D HEPARIN NEUT 43
[2017-06-12 06:27] LABS: REPTILASE TIME 18.4; THROMBIN TIME 23.5
== END 2017-06-09 11:30 | disposition home or self-care (01) | DRG 176 ==
LOC: ER 13:46 → ICU 20:12
PROVIDERS: ADMIT Internal Medicine; ATTEND Internal Medicine
DX: I26.99 Other pulmonary embolism without acute cor pulmonale (principal); E11.65 Type 2 diabetes mellitus with hyperglycemia; R10.32 Left lower quadrant pain; M79.662 Pain in left lower leg; I10 Essential (primary) hypertension; R10.84 Generalized abdominal pain; N83.292 Other ovarian cyst, left side; R06.02 Shortness of breath; E87.6 Hypokalemia; R79.1 Abnormal coagulation profile; E88.09 Other disorders of plasma-protein metabolism, not elsewhere classified
CPT/HCPCS: 36415; 71275; 74176; 80053; 80307; 81001; 81240; 82150; 82615; 83690; 83735; 84132; 84703; 85025; 85300; 85303; 85306; 85307; 85378; 85597; 85610; 85613; 85635; 85652; 85670; 85730; 85732; 86140; 86308; 93306; 93970; 96365; 96374; 96375; 97535; 99221; 99231; 99284; 99285; A4216; A4222; C9113; P9047; Q0177; G0434; J0360; J1644; J1815; J1885; J2060; J2175; J2270; J2550; J3480

== ENCOUNTER 2017-06-12 20:37 | Emergency (ER) | payer BC ==
[2017-06-12 20:43] VITALS: BP 143/82; BMI 34.0
[2017-06-12] MEDS ORDERED: TORADOL 60 MG VIAL IM ONE (22:00)
[2017-06-12] MEDS ORDERED: TORADOL 60 MG VIAL ONE (22:02)
--- NOTE | 2017-06-12 23:13 | DR.GENAD ---
HPI - Complaint/Symptoms Chief Complaint Doctors Comments: Patient denies history of trauma. She admits to numbness of fingers and shoulder pain. Chief Complaint:: PT C/O SHARP PAIN IN RT ARM. ONSET YESTERDAY. DENIES INJURY. - Source History Provided: Patient - Mode of Arrival Mode of Arrival: Ambulatory - Timing Onset of Chief Complaint: 06/12/17 PMH - PMH Past Medical History: Yes Past Medical History: Asthma, Diabetes, Dyslipidemia, Migraines, GERD, Hypertension Past Surgical History: Yes Surgical History: Appendectomy, Bowel Resection - Family History History of Family Medical Conditions: Yes Family Medical History: Diabetes Mellitus, [place], Heart Failure, Hypertension - Social History Do you use any recreational Drugs:: No - infectious screening Have you traveled outside the country in the last 6 months?: No ROS - Review of Systems Eyes: No Symptoms Reported ENTM: No Symptoms Reported Respiratoy: No Symptoms Reported Cardiovascular: No Symptoms Reported Gastrointestinal/Abdominal: No Symptoms Reported Genitourinary: No Symptoms Reported Neurological: No Symptoms Reported Musculoskeletal: No Symptoms Reported Integumentary: No Symptoms Reported Hematologic/Lymphatic: No Symptoms Reported Endocrine: No Symptoms Reported Psychiatric: No Symptoms Reported All Other Systems: Reviewed and Negative PE - Vital Signs Vitals: Temperature 98.9 F Pulse Rate 110 Respiratory Rate 18 Blood Pressure [Right Arm] 136/74 Blood Pressure [Left Arm] 133/68 Blood Pressure 143/82 O2 Sat by Pulse Oximetry 98 - General General Appearance: Alert, In Distress - Head Head Exam: Normal Inspection, Atraumatic - Eyes Eye exam: Normal Appearance, PERRL, EOMI - ENT ENT Exam: Normal Exam External Ear Exam: Normal External Inspection TM/Canal Exam: Bilateral Normal Nose Exam: Normal Nose Exam Mouth Exam: Normal Inspection Throat Exam: Normal Inspection - Neck Neck Exam: Normal Inspection, Full ROM - Chest Chest Inspection: Normal Inspection, Symmetric Chest Wall Rise - Respiratory Respiratory Exam: Normal Lung Sounds Bilat Respiratory Exam: Bilateral Clear to Auscultation - Cardiovascular Cardiovascular Exam: Regular Rate, Normal Rhythm - Abdominal Exam Abdominal Exam: Normal Inspection, Normal Bowel Sounds Abdominal Tenderness: negative: RUQ, RLQ, LUQ, LLQ, Epigastrium, Suprapubic, Diffuse, Mild, Moderate, Severe, Other - Extremities Extremities Exam: Normal Inspection, Other (admits to decreased ROM of RUE, numbness of fingers) - Back Back Exam: Normal Inspection - Neurologic Neurological Exam: Alert, Oriented X3, CN II-XII Intact - Psychiatric Psychiatric Exam: Normal Affect - Skin Skin Exam: Warm, Dry, Intact Course - Reevaluation 1st: Improved ROR - XRAY XRAY Interpreted by: Radiologist (C Spine: Within the visualized cervical spine no acute fracture, spondylolisthesis or prevertebral soft tissue swelling. There is mild spndylosis at C4-5,C5-6) - Diagnosis Discharge Problem: spondylosis at C4-5 and C5-6 - Discharge Plan Condition: Stable - Follow ups/Referrals Follow ups/Referrals: Mukesh Roque [Primary Care Provider] - 3 days - Instructions
--- NOTE | 2017-06-12 23:33 | RAD ---
Four views of the cervical spine Indication: Upper extremity pain with neuropathy Findings: The cervical spine is well seen to the level of C6. Within the visualized cervical spine th ere is no fracture spinal ceases or prevertebral soft tissue swelling. There is mild spondylosis at C 4-5 and C5-6. Posterior elements are normal in alignment. Atlantoaxial joint is symmetric. Impression: Within the visualized cervical spine no acute fracture, spondylolisthesis or prevertebral soft tissue swelling. There is mild spondylosis at C4-5 and C5-6. Reported By:
== END 2017-06-12 23:59 | disposition home or self-care (01) ==
LOC: ER 20:49
DX: M47.812 Spondylosis without myelopathy or radiculopathy, cervical region (principal); M79.89 Other specified soft tissue disorders
CPT/HCPCS: 72040; 96372; 99282; J1885

== ENCOUNTER 2017-07-18 08:45 | Day surgery (SDC) | payer BC ==
[2017-07-18] MEDS ORDERED: NS 500 ML IV 500 ML IV ONE (08:49)
[2017-07-18] MEDS ORDERED: TETRACAINE 0.5% OPHTH 1 DOSE AFFEYE ONE ×2 (09:15→12:36)
[2017-07-18] MEDS ORDERED: VIGAMOX 0.5% OPHTH 1 DOSE AFFEYE ONE ×5 (09:20→13:05)
[2017-07-18] MEDS ORDERED: PROLENSA OPHTH 1 DOSE AFFEYE ONE (09:31)
[2017-07-18] MEDS ORDERED: ALPHAGAN-P OPHTH 1 DOSE AFFEYE ONE (09:32)
[2017-07-18] MEDS ORDERED: CYCLOGYL 1% OPHTH 1 DOSE OP ONE ×3 (09:33→09:35)
[2017-07-18] MEDS ORDERED: MYDRIACIL OPHTH 1 DOSE AFFEYE ONE ×3 (09:33→09:35)
[2017-07-18] MEDS ORDERED: AK-DILATE 2.5% OPHTH 1 DOSE OP ONE ×3 (09:33→09:35)
[2017-07-18] MEDS ORDERED: VERSED ONE (10:29)
[2017-07-18] MEDS ORDERED: DIPRIVAN VIAL ONE (10:29)
[2017-07-18] MEDS ORDERED: BETADINE OPHTH SOLN 5% EACHEYE ONE (12:36)
[2017-07-18] MEDS ORDERED: BSS OPHTH (PLAIN) 500 ML with VANCOMYCIN HCL 500 MG VIAL 25 MG, ADRENALINE CHL INJ 1 MG IR ONE ×3 (12:47)
[2017-07-18] MEDS ORDERED: XYLOCAINE-MPF 1% IJ ONE (12:47)
[2017-07-18] MEDS ORDERED: DUOVISC IO ONE (12:47)
[2017-07-18] MEDS ORDERED: ADRENALINE CHL INJ IJ ONE (12:47)
[2017-07-18 13:17] VITALS: BP 126/85
== END 2017-07-18 13:21 | disposition home or self-care (01) ==
LOC: SURG1 08:45
PROVIDERS: ATTEND Ophthalmology
PROC: 08RK3JZ Replacement of Left Lens with Synthetic Substitute, Percutaneous Approach (ICD-10-PCS; principal; 2017-07-18 14:15)
PROC: 08DK3ZZ Extraction of Left Lens, Percutaneous Approach (ICD-10-PCS; principal; 2017-07-18 14:15)
DX: H25.12 Age-related nuclear cataract, left eye (principal); H25.012 Cortical age-related cataract, left eye; H25.042 Posterior subcapsular polar age-related cataract, left eye
CPT/HCPCS: A4217; J0170; J2250; J3370; J3490

== ENCOUNTER 2017-08-01 06:55 | Day surgery (SDC) | payer BC ==
[2017-08-01] MEDS ORDERED: TETRACAINE 0.5% OPHTH 1 DOSE AFFEYE ONE ×2 (07:13→09:38)
[2017-08-01] MEDS ORDERED: VIGAMOX 0.5% OPHTH 1 DOSE AFFEYE ONE ×5 (07:15→10:04)
[2017-08-01] MEDS ORDERED: NS 500 ML IV 500 ML IV ONE (07:24)
[2017-08-01] MEDS ORDERED: PROLENSA OPHTH 1 DOSE AFFEYE ONE (07:27)
[2017-08-01] MEDS ORDERED: ALPHAGAN-P OPHTH 1 DOSE AFFEYE ONE (07:29)
[2017-08-01] MEDS ORDERED: CYCLOGYL 1% OPHTH 1 DOSE OP ONE ×4 (07:30→07:40)
[2017-08-01] MEDS ORDERED: MYDRIACIL OPHTH 1 DOSE AFFEYE ONE ×4 (07:30→07:41)
[2017-08-01] MEDS ORDERED: AK-DILATE 2.5% OPHTH 1 DOSE OP ONE ×4 (07:30→07:40)
[2017-08-01] MEDS ORDERED: AK-DILATE 10% OPHTH 1 DOSE AFFEYE ONE (08:57)
[2017-08-01] MEDS ORDERED: BETADINE OPHTH SOLN 5% EACHEYE ONE (09:38)
[2017-08-01] MEDS ORDERED: XYLOCAINE-MPF 1% IJ ONE (09:49)
[2017-08-01] MEDS ORDERED: BSS OPHTH (PLAIN) 500 ML with VANCOMYCIN HCL 500 MG VIAL 25 MG, ADRENALINE CHL INJ 1 MG IR ONE ×3 (09:49)
[2017-08-01] MEDS ORDERED: ADRENALINE CHL INJ IJ ONE (09:49)
[2017-08-01] MEDS ORDERED: DUOVISC IO ONE (09:49)
[2017-08-01 10:26] VITALS: BP 142/73
[2017-08-01] MEDS ORDERED: VERSED ONE (10:31)
[2017-08-01] MEDS ORDERED: DIPRIVAN VIAL ONE (10:31)
== END 2017-08-01 10:27 | disposition home or self-care (01) ==
LOC: SURG1 06:55
PROVIDERS: ATTEND Ophthalmology
PROC: 08DJ3ZZ Extraction of Right Lens, Percutaneous Approach (ICD-10-PCS; principal; 2017-08-01 07:00)
PROC: 08RJ3JZ Replacement of Right Lens with Synthetic Substitute, Percutaneous Approach (ICD-10-PCS; principal; 2017-08-01 07:00)
DX: H25.11 Age-related nuclear cataract, right eye (principal); H25.041 Posterior subcapsular polar age-related cataract, right eye
CPT/HCPCS: A4217; J0170; J2250; J3370; J3490

== ENCOUNTER 2017-09-20 13:01 | Emergency (ER) | payer BC ==
[2017-09-20 13:10] VITALS: BP 180/81; BMI 34.2
[2017-09-20] MEDS ORDERED: NORFLEX INJ IM ONE (13:39)
[2017-09-20] MEDS ORDERED: TORADOL 60 MG VIAL IM ONE (13:39)
--- NOTE | 2017-09-20 13:42 | DR.GENAD ---
HPI - PCP Primary Care Physician: JUDY - Complaint/Symptoms Chief Complaint:: SHARP PAIN RUNNING DOWN RIGHT LEG. PT STATES LEG HAS BEEN BOTHERING HER A COUPLE OF DAYS BUT TODAY THE PAIN IN EXCRUCIATING AND SHE CAN HARDLY WALK - Nurses notes reviewed Nurses Notes Review: Yes - Source History Provided: Patient - Mode of Arrival Mode of Arrival: Ambulatory - Timing Onset of Chief Complaint: 09/20/17 Came on: Suddenly - Duration Duration: Intermittent Duration: Days - Severity Severity: Moderate PMH - PMH Past Medical History: Yes Past Medical History: Asthma, Diabetes, Dyslipidemia, Migraines, GERD, Hypertension Past Surgical History: Yes Surgical History: Appendectomy, Bowel Resection - Family History History of Family Medical Conditions: Yes Family Medical History: Diabetes Mellitus, [place], Heart Failure, Hypertension - Social History Does patient currently use any type of tobacco product: No Have you used tobacco products in the last 12 months: No Type of Tobacco Use: None Does any household member use tobacco: No Alcohol Use: None Do you use any recreational Drugs:: No Lives With: Family Lives Where: Home - infectious screening In the last 2 months have you had wt loss of >10#?: NO Have you had fever, night sweats or hemotysis?: No Have you traveled outside the country in the last 6 months?: No Isolation: Standard PE - Vital Signs Vitals: Temperature 99.4 F Pulse Rate 102 Respiratory Rate 22 Blood Pressure [Right Arm] 136/74 Blood Pressure [Left Arm] 133/68 Blood Pressure 180/81 O2 Sat by Pulse Oximetry 97 ROR - Labs Reviewed Result Diagrams: 09/20/17 13:49 09/20/17 13:49 Laboratory: WBC 9.4 X10^3/uL (3.6-10.0) 09/20/17 13:49 RBC 4.47 X10^6/uL (3.5-5.4) 09/20/17 13:49 Hgb 10.0 g/dL (12.0-16.0) L 09/20/17 13:49 Hct 31.2 % (36.0-47.0) L 09/20/17 13:49 MCV 69.6 fL (80.0-100.0) L 09/20/17 13:49 MCH 22.3 pg (27.0-34.0) L 09/20/17 13:49 MCHC 32.0 g/dL (33.0-35.0) L 09/20/17 13:49 RDW 15.9 % (11.6-16.5) 09/20/17 13:49 Plt Count 447 X10^3/uL (150.0-450.0) 09/20/17 13:49 Plt Count Comment Adequate (ADEQUATE) 09/20/17 13:49 MPV 8.2 fL (7.4-11.0) 09/20/17 13:49 Neut % 72.6 % (42.0-75.0) 09/20/17 13:49 Lymph % 19.2 % (21.0-51.0) L 09/20/17 13:49 [place] % 5.7 % (0.0-13.0) 09/20/17 13:49 Eos % 1.5 % (0.9-2.9) 09/20/17 13:49 Baso % 1.0 % (0.2-1.0) 09/20/17 13:49 Neut # 6.8 x10^3/uL (2.2-4.8) H 09/20/17 13:49 Lymph # 1.8 X10^3/uL (1.3-2.9) 09/20/17 13:49 [place] # 0.5 x10^3/uL (0.3-0.8) 09/20/17 13:49 Eos # 0.1 x10^3/uL (0.0-0.2) 09/20/17 13:49 Baso # 0.1 X10^3/uL (0.0-0.1) 09/20/17 13:49 Absolute Nucleated RBC 0.0 /100WBC 09/20/17 13:49 Plt Morphology Comment Normal (NORMAL) 09/20/17 13:49 RBC Morphology Abnormal (NORMAL) A 09/20/17 13:49 Hypochromasia Slight A 09/20/17 13:49 Anisocytosis Slight A 09/20/17 13:49 Microcytosis Slight A 09/20/17 13:49 D-Dimer 194 ng/mL (0-400) 09/20/17 13:49 Sodium 133 mmol/L (136-145) L 09/20/17 13:49 Corrected Sodium 134 mmol/L (136-145) L 09/20/17 13:49 Potassium 5.1 mmol/L (3.5-5.1) 09/20/17 13:49 Chloride 101 mmol/L (98-107) 09/20/17 13:49 Carbon Dioxide 22.2 mmol/L (21-32) 09/20/17 13:49 BUN 52 mg/dL (7-18) H 09/20/17 13:49 Creatinine 1.47 mg/dL (0.55-1.02) H 09/20/17 13:49 Est GFR (MDRD) Af Amer 50 (>60) L 09/20/17 13:49 Est GFR (MDRD) Non-Af 41 (>60) L 09/20/17 13:49 Glucose 139 mg/dL (65-99) H 09/20/17 13:49 Calcium 9.4 mg/dL (8.5-10.1) 09/20/17 13:49 Corrected Calcium TNP 09/20/17 13:49 Total Bilirubin 0.10 mg/dL (0.2-1.0) L 09/20/17 13:49 AST 13 Units/L (15-37) L 09/20/17 13:49 ALT 16 Units/L (12-78) 09/20/17 13:49 Alkaline Phosphatase 109 Units/L (46-116) 09/20/17 13:49 C-Reactive Protein 3.90 mg/L (0-3.0) H 09/20/17 13:49 Total Protein 9.0 g/dL (6.4-8.2) H 09/20/17 13:49 Albumin 3.6 g/dL (3.4-5.0) 09/20/17 13:49 Globulin 5.4 g/dL (2.5-4.5) H 09/20/17 13:49 Albumin/Globulin Ratio 0.7 Ratio (1.1-2.1) L 09/20/17 13:49 - Discharge Plan Condition: Stable Prescriptions: Cyclobenzaprine HCl [FLEXERIL 10 MG *] 10 mg PO TID #20 tab - Follow ups/Referrals Follow ups/Referrals: Mukesh Roque [Primary Care Provider] - 3 days - Instructions Instructions: Sciatica, [id number] Additional Instructions: RETURN TO ED IF WORSE.
[2017-09-20 14:06] LABS: BASOPHILS # (AUTO) 0.1 X10^3/uL (0.0-0.1); EOSINOPHILS # (AUTO) 0.1 x10^3/uL (0.0-0.2); EOSINOPHILS % (AUTO) 1.5 % (0.9-2.9); HEMATOCRIT 31.2 % (36.0-47.0); LYMPHOCYTES # (AUTO) 1.8 X10^3/uL (1.3-2.9); LYMPHOCYTES % (AUTO) 19.2 % (21.0-51.0); MEAN CORPUSCULAR HEMOGLOBIN 22.3 pg (27.0-34.0); MEAN CORPUSCULAR VOLUME 69.6 fL (80.0-100.0); MEAN PLATELET VOLUME 8.2 fL (7.4-11.0); MONOCYTES # (AUTO) 0.5 x10^3/uL (0.3-0.8); MONOCYTES % (AUTO) 5.7 % (0.0-13.0); NEUTROPHILS # (AUTO) 6.8 x10^3/uL (2.2-4.8); NEUTROPHILS % (AUTO) 72.6 % (42.0-75.0); PLATELET COUNT 447 X10^3/uL (150.0-450.0); RED BLOOD COUNT 4.47 X10^6/uL (3.5-5.4); RED CELL DISTRIBUTION WIDTH 15.9 % (11.6-16.5); WHITE BLOOD COUNT 9.4 X10^3/uL (3.6-10.0)
[2017-09-20 14:11] LABS: ALANINE AMINOTRANSFERASE 16 Units/L (12-78); ALBUMIN 3.6 g/dL (3.4-5.0); ALKALINE PHOSPHATASE 109 Units/L (46-116); ASPARTATE AMINO TRANSFERASE 13 Units/L (15-37); BLOOD UREA NITROGEN 52 mg/dL (7-18); CALCIUM 9.4 mg/dL (8.5-10.1); CARBON DIOXIDE 22.2 mmol/L (21-32); CHLORIDE 101 mmol/L (98-107); COR NA(FOR HYPERGLY) 134 mmol/L (136-145); CREATININE 1.47 mg/dL (0.55-1.02); SODIUM 133 mmol/L (136-145); eGFR BLACK RACES 50 (>60); eGFR NON BLACK RACES 41 (>60)
[2017-09-20] MEDS ORDERED: TORADOL 60 MG VIAL ONE (14:11)
[2017-09-20] MEDS ORDERED: NORFLEX INJ ONE (14:12)
[2017-09-20 14:17] LABS: ANISOCYTOSIS SLIGHT; HYPOCHROMASIA SLIGHT; MICROCYTOSIS SLIGHT; PLATELET MORPHOLOGY COMMENT NORMAL (NORMAL)
== END 2017-09-20 15:23 | disposition home or self-care (01) ==
LOC: ER 13:12
DX: M54.31 Sciatica, right side (principal)
CPT/HCPCS: 36415; 80053; 85025; 85378; 86140; 96372; 99282; J1885; J2360

== ENCOUNTER 2017-11-23 11:18 | Observation (INO) | payer BC, MEDICAID ==
[2017-11-23] MEDS ORDERED: NS 1000 ML 2,000 ML IV SCH (12:17)
[2017-11-23 12:45] LABS: BASOPHILS # (AUTO) 0.1 X10^3/uL (0.0-0.1); BASOPHILS % (AUTO) 1.4 % (0.2-1.0); EOSINOPHILS # (AUTO) 0.2 x10^3/uL (0.0-0.2); EOSINOPHILS % (AUTO) 1.6 % (0.9-2.9); HEMATOCRIT 31.9 % (36.0-47.0); HEMOGLOBIN 10.2 g/dL (12.0-16.0); LYMPHOCYTES # (AUTO) 1.9 X10^3/uL (1.3-2.9); LYMPHOCYTES % (AUTO) 19.3 % (21.0-51.0); MEAN CORPUSCULAR HEMOGLOBIN 21.7 pg (27.0-34.0); MEAN CORPUSCULAR HGB CONC 31.9 g/dL (33.0-35.0); MEAN CORPUSCULAR VOLUME 67.9 fL (80.0-100.0); MONOCYTES # (AUTO) 0.4 x10^3/uL (0.3-0.8); MONOCYTES % (AUTO) 4.4 % (0.0-13.0); NEUTROPHILS # (AUTO) 7.1 x10^3/uL (2.2-4.8); NEUTROPHILS % (AUTO) 73.3 % (42.0-75.0); PLATELET COUNT 437 X10^3/uL (150.0-450.0); RED CELL DISTRIBUTION WIDTH 15.5 % (11.6-16.5); WHITE BLOOD COUNT 9.7 X10^3/uL (3.6-10.0)
[2017-11-23 12:54] LABS: ANISOCYTOSIS 1+; GIANT PLATELET FEW; HYPOCHROMASIA 2+; PLATELET MORPHOLOGY COMMENT NORMAL (NORMAL)
[2017-11-23 12:58] LABS: ALANINE AMINOTRANSFERASE 16 Units/L (12-78); ALBUMIN 3.6 g/dL (3.4-5.0); ALKALINE PHOSPHATASE 133 Units/L (46-116); AMYLASE 116 Units/L (25-115); ASPARTATE AMINO TRANSFERASE 11 Units/L (15-37); BLOOD UREA NITROGEN 51 mg/dL (7-18); CALCIUM 9.2 mg/dL (8.5-10.1); CARBON DIOXIDE 25.3 mmol/L (21-32); CHLORIDE 97 mmol/L (98-107); COR NA(FOR HYPERGLY) 136 mmol/L (136-145); CREATININE 1.75 mg/dL (0.55-1.02); LIPASE 300 Units/L (73-393); SODIUM 134 mmol/L (136-145); TOTAL PROTEIN 9.7 g/dL (6.4-8.2); eGFR BLACK RACES 41 (>60); eGFR NON BLACK RACES 34 (>60)
[2017-11-23] MEDS: NS 1000 ML 1,000 ML IV SCH ×2 (12:59→20:50)
[2017-11-23 13:07] VITALS: BMI 32.1
[2017-11-23] MEDS ORDERED: ZOFRAN INJ 4 MG VIAL IVP PRN (13:25)
[2017-11-23] MEDS ORDERED: PHENERGAN INJ 25 MG IV PRN (13:25)
[2017-11-23] MEDS: PEPCID 20 MG IV PREMIX* 20 MG/50 ML BAG IV SCH ×2 (13:35→20:51)
[2017-11-23] MEDS: PROTONIX INJ 40 MG VIAL IVP SCH ×2 (13:36→20:51)
[2017-11-23] MEDS ORDERED: XANAX PO ONE (14:07)
[2017-11-23] MEDS: NORCO 5/325 MG TAB PO PRN (23:47)
[2017-11-24 02:10] LABS: BILIRUBIN,URINE NEGATIVE (NEGATIVE); BLOOD/HEMOGLOBIN,URINE 1+ (NEGATIVE); GLUCOSE, URINE 4+ (NEGATIVE); KETONES,URINE NEGATIVE (NEGATIVE); LEUKOCYTE ESTERASE ,URINE NEGATIVE (NEGATIVE); NITRITES,URINE NEGATIVE (NEGATIVE); PROTEIN,URINE 2+ (NEGATIVE); UROBILINOGEN,URINE NORMAL (NORMAL)
[2017-11-24 02:19] LABS: APPEARANCE,URINE CLEAR (CLEAR); BACTERIA,URINE NEGATIVE /HPF (NEGATIVE); COLOR,URINE YELLOW (YELLOW); RBC,URINE 0-2 /HPF (NONE SEEN); SQUAMOUS EPITHELIAL CELL,UR MODERATE /HPF (NEGATIVE)
[2017-11-24] MEDS: NS 1000 ML 1,000 ML IV SCH ×3 (03:50→17:50)
[2017-11-24] MEDS: HumuLIN R SUBCUT PRN ×2 (05:36→20:37)
[2017-11-24 05:40] LABS: BASOPHILS # (AUTO) 0.1 X10^3/uL (0.0-0.1); BASOPHILS % (AUTO) 0.7 % (0.2-1.0); EOSINOPHILS # (AUTO) 0.2 x10^3/uL (0.0-0.2); EOSINOPHILS % (AUTO) 1.9 % (0.9-2.9); HEMATOCRIT 28.8 % (36.0-47.0); HEMOGLOBIN 9.2 g/dL (12.0-16.0); LYMPHOCYTES # (AUTO) 2.5 X10^3/uL (1.3-2.9); LYMPHOCYTES % (AUTO) 29.4 % (21.0-51.0); MEAN CORPUSCULAR HEMOGLOBIN 21.9 pg (27.0-34.0); MEAN CORPUSCULAR VOLUME 68.4 fL (80.0-100.0); MEAN PLATELET VOLUME 7.9 fL (7.4-11.0); MONOCYTES # (AUTO) 0.5 x10^3/uL (0.3-0.8); MONOCYTES % (AUTO) 6.3 % (0.0-13.0); NEUTROPHILS # (AUTO) 5.1 x10^3/uL (2.2-4.8); NEUTROPHILS % (AUTO) 61.7 % (42.0-75.0); PLATELET COUNT 355 X10^3/uL (150.0-450.0); RED BLOOD COUNT 4.21 X10^6/uL (3.5-5.4); RED CELL DISTRIBUTION WIDTH 15.6 % (11.6-16.5); WHITE BLOOD COUNT 8.3 X10^3/uL (3.6-10.0)
[2017-11-24 05:51] LABS: ALBUMIN 2.8 g/dL (3.4-5.0); CALCIUM 8.3 mg/dL (8.5-10.1); CARBON DIOXIDE 25.6 mmol/L (21-32); COR CA(FOR HYPOALB) 9.3 mg/dL (8.5-10.1); CREATININE 1.55 mg/dL (0.55-1.02); TOTAL PROTEIN 8.4 g/dL (6.4-8.2)
[2017-11-24 05:53] LABS: HYPOCHROMASIA 2+; MICROCYTOSIS 1+; PLATELET MORPHOLOGY COMMENT NORMAL (NORMAL)
[2017-11-24] MEDS: NORCO 5/325 MG TAB PO PRN ×3 (07:48→20:36)
[2017-11-24] MEDS: PROTONIX INJ 40 MG VIAL IVP SCH ×2 (08:49→20:36)
[2017-11-24] MEDS: PEPCID 20 MG IV PREMIX* 20 MG/50 ML BAG IV SCH ×2 (08:49→20:36)
[2017-11-25] MEDS: NS 1000 ML 1,000 ML IV SCH ×5 (01:20→13:36)
[2017-11-25] MEDS: NORCO 5/325 MG TAB PO PRN ×3 (02:04→14:21)
[2017-11-25 06:02] LABS: ALANINE AMINOTRANSFERASE 12 Units/L (12-78); ALBUMIN 2.5 g/dL (3.4-5.0); ALKALINE PHOSPHATASE 99 Units/L (46-116); ASPARTATE AMINO TRANSFERASE 13 Units/L (15-37); BLOOD UREA NITROGEN 22 mg/dL (7-18); CALCIUM 7.9 mg/dL (8.5-10.1); CARBON DIOXIDE 20.8 mmol/L (21-32); CHLORIDE 109 mmol/L (98-107); COR CA(FOR HYPOALB) 9.1 mg/dL (8.5-10.1); COR NA(FOR HYPERGLY) 140 mmol/L (136-145); CREATININE 1.14 mg/dL (0.55-1.02); SODIUM 139 mmol/L (136-145); TOTAL PROTEIN 7.7 g/dL (6.4-8.2); eGFR BLACK RACES > 60 (>60); eGFR NON BLACK RACES 55 (>60)
[2017-11-25 06:10] LABS: BASOPHILS # (AUTO) 0.1 X10^3/uL (0.0-0.1); BASOPHILS % (AUTO) 1.3 % (0.2-1.0); EOSINOPHILS # (AUTO) 0.2 x10^3/uL (0.0-0.2); EOSINOPHILS % (AUTO) 3.2 % (0.9-2.9); HEMATOCRIT 26.2 % (36.0-47.0); HEMOGLOBIN 8.2 g/dL (12.0-16.0); LYMPHOCYTES # (AUTO) 2.7 X10^3/uL (1.3-2.9); LYMPHOCYTES % (AUTO) 37.4 % (21.0-51.0); MEAN CORPUSCULAR HEMOGLOBIN 21.9 pg (27.0-34.0); MEAN CORPUSCULAR HGB CONC 31.3 g/dL (33.0-35.0); MEAN PLATELET VOLUME 8.1 fL (7.4-11.0); MONOCYTES # (AUTO) 0.6 x10^3/uL (0.3-0.8); MONOCYTES % (AUTO) 8.3 % (0.0-13.0); NEUTROPHILS # (AUTO) 3.6 x10^3/uL (2.2-4.8); NEUTROPHILS % (AUTO) 49.8 % (42.0-75.0); PLATELET COUNT 325 X10^3/uL (150.0-450.0); RED BLOOD COUNT 3.75 X10^6/uL (3.5-5.4); RED CELL DISTRIBUTION WIDTH 15.7 % (11.6-16.5); WHITE BLOOD COUNT 7.3 X10^3/uL (3.6-10.0)
[2017-11-25 06:30] LABS: HYPOCHROMASIA 1+; MICROCYTOSIS 1+; PLATELET MORPHOLOGY COMMENT NORMAL (NORMAL)
[2017-11-25] MEDS: PROTONIX INJ 40 MG VIAL IVP SCH (08:24)
[2017-11-25] MEDS: PEPCID 20 MG IV PREMIX* 20 MG/50 ML BAG IV SCH (08:24)
[2017-11-25] MEDS: NEURONTIN CAP 100 MG PO SCH ×2 (09:43→16:51)
[2017-11-25 14:17] LABS: HEMATOCRIT 28.3 % (36.0-47.0); HEMOGLOBIN 9.1 g/dL (12.0-16.0)
[2017-11-25 17:03] VITALS: BP 167/79
== END 2017-11-25 17:00 | disposition home or self-care (01) ==
LOC: UNDOADMOB 11:18 → MED/SURG 11:18
PROVIDERS: ADMIT Internal Medicine; ATTEND Internal Medicine
DX: E86.0 Dehydration (principal); E11.65 Type 2 diabetes mellitus with hyperglycemia; E03.9 Hypothyroidism, unspecified; E78.2 Mixed hyperlipidemia; E66.9 Obesity, unspecified; G62.9 Polyneuropathy, unspecified; I10 Essential (primary) hypertension; R26.89 Other abnormalities of gait and mobility
CPT/HCPCS: 36415; 80053; 81001; 82150; 82607; 82728; 82746; 83540; 83690; 84466; 85014; 85018; 85025; 94760; 99217; A4222; C9113; S0028; G0378; J1815; J2550

== ENCOUNTER 2020-12-10 22:00 | Inpatient (IN) ==
--- NOTE | 2020-12-10 22:10 | DR.SOBA ---
HPI Time Seen Time Seen by Provider: 12/10/20 22:07 HPI Comment HPI Comment: Worsening sob for the past day with wheezing and coughing; no fever or chills; no cp, sob, palpitations, abd pain, n/v/d; she has appt with nephrology next month and was last in hospital at [facility] [place] [facility] last month. 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 Family History Family Medical History: Diabetes Mellitus, Cancer, MS, Coronary Artery Disease, Heart Failure and Hypertension Social History Do you use any recreational Drugs:: No ROS Review of Systems Eyes: No Symptoms Reported ENTM: No Symptoms Reported Cardiovascular: No Symptoms Reported Gastrointestinal/Abdominal: No Symptoms Reported Genitourinary: No Symptoms Reported Neurological: No Symptoms Reported Musculoskeletal: No Symptoms Reported Integumentary: No Symptoms Reported Hematologic/Lymphatic: No Symptoms Reported Endocrine: No Symptoms Reported Psychiatric: No Symptoms Reported PE Vital Signs Vitals: Temperature 98.4 F Pulse Rate [Right] 85 Pulse Rate 87 Respiratory Rate 14 Blood Pressure [Right Arm] 165/75 Blood Pressure [Left Arm] 167/79 Blood Pressure 164/74 O2 Sat by Pulse Oximetry 99 General Limitations: No Limitations General Appearance: Alert and In No Apparent Distress Head Head Exam: Normal Inspection Eyes Eye exam: Normal Appearance ENT ENT Exam: Normal Exam Neck Neck Exam: Normal Inspection Chest Chest Inspection: Normal Inspection Respiratory Respiratory Exam: Normal Lung Sounds Bilat Respiratory Exam: Bilateral: Clear to Auscultation Cardiovascular Cardiovascular Exam: Regular Rate and Normal Rhythm Extremities Extremities Exam: Normal Inspection and Edema (0-1+) Back Back Exam: Normal Inspection Neurologic Neurological Exam: Alert, Oriented X3 and CN II-XII Intact Psychiatric Psychiatric Exam: Normal Affect and Normal Mood Skin Skin Exam: Warm, Dry, Intact and Normal Color ROR Labs Reviewed Laboratory Results Reviewed?: Yes Result Diagrams: 12/10/20 23:05 12/11/20 04:25 Laboratory: WBC 8.2 X10^3/uL (3.6-10.0) 12/10/20 23:05 RBC 3.78 X10^6/uL (3.5-5.4) 12/10/20 23:05 Hgb 8.6 g/dL (12.0-16.0) L 12/10/20 23:05 Hct 27.3 % (36.0-47.0) L 12/10/20 23:05 MCV 72.4 fL (80.0-100.0) L 12/10/20 23:05 MCH 22.7 pg (27.0-34.0) L 12/10/20 23:05 MCHC 31.4 g/dL (33.0-35.0) L 12/10/20 23:05 RDW 16.6 % (11.6-16.5) H 12/10/20 23:05 Plt Count 372 X10^3/uL (150.0-450.0) 12/10/20 23:05 MPV 8.0 fL (7.4-11.0) 12/10/20 23:05 Neut % (Auto) 78.3 % (42.0-75.0) H 12/10/20 23:05 Lymph % (Auto) 13.0 % (21.0-51.0) L 12/10/20 23:05 [place] % (Auto) 4.6 % (0.0-13.0) 12/10/20 23:05 Eos % (Auto) 3.2 % (0.9-2.9) H 12/10/20 23:05 Baso % (Auto) 0.9 % (0.2-1.0) 12/10/20 23:05 Neut # (Auto) 6.4 x10^3/uL (2.2-4.8) H 12/10/20 23:05 Lymph # (Auto) 1.1 X10^3/uL (1.3-2.9) L 12/10/20 23:05 [place] # (Auto) 0.4 x10^3/uL (0.3-0.8) 12/10/20 23:05 Eos # (Auto) 0.3 x10^3/uL (0.0-0.2) H 12/10/20 23:05 Baso # (Auto) 0.1 X10^3/uL (0.0-0.1) 12/10/20 23:05 Absolute Nucleated RBC 0.1 /100WBC 12/10/20 23:05 Sodium 141 mmol/L (136-145) 12/11/20 04:25 Corrected Sodium 144 mmol/L (136-145) 12/11/20 04:25 Potassium 5.4 mmol/L (3.5-5.1) H 12/11/20 04:25 Chloride 108 mmol/L (98-107) H 12/11/20 04:25 Carbon Dioxide 20.7 mmol/L (21-32) L 12/11/20 04:25 BUN 57 mg/dL (7-18) H 12/11/20 04:25 Creatinine 3.74 mg/dL (0.55-1.02) H 12/11/20 04:25 Est GFR (MDRD) Af Amer 17 (>60) L 12/11/20 04:25 Est GFR (MDRD) Non-Af 14 (>60) L 12/11/20 04:25 Glucose 219 mg/dL (65-99) H 12/11/20 04:25 Calcium 8.4 mg/dL (8.5-10.1) L 12/11/20 04:25 Corrected Calcium 9.6 mg/dL (8.5-10.1) 12/10/20 23:05 Magnesium 1.8 mg/dL (1.7-2.9) 12/11/20 04:25 Total Bilirubin 0.10 mg/dL (0.2-1.0) L 12/10/20 23:05 AST 46 Units/L (15-37) H 12/10/20 23:05 ALT 63 Units/L (12-78) 12/10/20 23:05 Alkaline Phosphatase 147 Units/L (46-116) H 12/10/20 23:05 Creatine Kinase 309 Units/L (26-192) H 12/10/20 23:05 CK-MB (CK-2) 3.1 ng/mL (0-4.0) 12/10/20 23:05 CK/CKMB % Calc 1.0 % (<4) 12/10/20 23:05 Troponin I < 0.02 ng/mL (0-1.5) 12/10/20 23:05 B-Natriuretic Peptide 392 pg/mL (0-79) H 12/10/20 23:05 Total Protein 6.3 g/dL (6.4-8.2) L 12/10/20 23:05 Albumin 2.2 g/dL (3.4-5.0) L 12/10/20 23:05 Globulin 4.1 g/dL (2.5-4.5) 12/10/20 23:05 Albumin/Globulin Ratio 0.5 Ratio (1.1-2.1) L 12/10/20 23:05 XRAY XRAY Interpreted by: Radiologist X-ray Results: CXR: 1. No focal consolidation is seen. 2. The heart size is globally enlarged but stable from prior exam with findings suggesting mild degree of pulmonary edema. Opioid Opioid Risk Tool Age (Jose box if 16-45): Yes History of Preadolescent Sexual Abuse: No Total: 1 Total Score Risk Category: Low Risk Copyright: Alberto PENA predicting aberrant behaviors Diagnosis Discharge Problem: Acute hypokalemia, Essential hypertension Congestive heart failure Qualifiers: Heart failure type: unspecified Heart failure chronicity: unspecified Qualified Code(s): I50.9 - Heart failure, unspecified Acute on chronic renal failure Qualifiers: Acute renal failure type: unspecified Chronic kidney disease stage: stage 4 (severe) Qualified Code(s): N17.9 - Acute kidney failure, unspecified
[2020-12-10 22:23] VITALS: BMI 37.3
[2020-12-10] MEDS ORDERED: APRESOLINE INJ 20 MG VIAL IVP ONE (23:15)
[2020-12-10 23:20] LABS: BASOPHILS % (AUTO) 0.9 % (0.2-1.0); EOSINOPHILS % (AUTO) 3.2 % (0.9-2.9); HEMATOCRIT 27.3 % (36.0-47.0); HEMOGLOBIN 8.6 g/dL (12.0-16.0); MEAN CORPUSCULAR HEMOGLOBIN 22.7 pg (27.0-34.0); MEAN CORPUSCULAR HGB CONC 31.4 g/dL (33.0-35.0); MEAN CORPUSCULAR VOLUME 72.4 fL (80.0-100.0); MONOCYTES % (AUTO) 4.6 % (0.0-13.0); NEUTROPHILS # (AUTO) 6.4 x10^3/uL (2.2-4.8); NEUTROPHILS % (AUTO) 78.3 % (42.0-75.0); PLATELET COUNT 372 X10^3/uL (150.0-450.0); RED BLOOD COUNT 3.78 X10^6/uL (3.5-5.4); RED CELL DISTRIBUTION WIDTH 16.6 % (11.6-16.5); WHITE BLOOD COUNT 8.2 X10^3/uL (3.6-10.0)
[2020-12-10 23:21] LABS: BASOPHILS # (AUTO) 0.1 X10^3/uL (0.0-0.1); EOSINOPHILS # (AUTO) 0.3 x10^3/uL (0.0-0.2); LYMPHOCYTES # (AUTO) 1.1 X10^3/uL (1.3-2.9); MONOCYTES # (AUTO) 0.4 x10^3/uL (0.3-0.8)
[2020-12-10] MEDS ORDERED: LASIX IVP ONE (23:21)
[2020-12-10] MEDS ORDERED: APRESOLINE INJ 20 MG VIAL ONE (23:22)
[2020-12-10 23:32] LABS: BLOOD UREA NITROGEN 53 mg/dL (7-18); CALCIUM 8.2 mg/dL (8.5-10.1); CARBON DIOXIDE 25.4 mmol/L (21-32); CHLORIDE 108 mmol/L (98-107); COR NA(FOR HYPERGLY) 144 mmol/L (136-145); CREATININE 3.74 mg/dL (0.55-1.02); SODIUM 141 mmol/L (136-145); TROPONIN I < 0.02 ng/mL (0-1.5); eGFR NON BLACK RACES 14 (>60)
[2020-12-10 23:36] LABS: ALANINE AMINOTRANSFERASE 63 Units/L (12-78); ALBUMIN 2.2 g/dL (3.4-5.0); ALKALINE PHOSPHATASE 147 Units/L (46-116); ASPARTATE AMINO TRANSFERASE 46 Units/L (15-37); COR CA(FOR HYPOALB) 9.6 mg/dL (8.5-10.1); CREATINE KINASE 309 Units/L (26-192); CREATINE KINASE MB 3.1 ng/mL (0-4.0); TOTAL PROTEIN 6.3 g/dL (6.4-8.2)
[2020-12-10] MEDS ORDERED: LASIX IVP SCH (23:45)
[2020-12-11] MEDS ORDERED: NEURONTIN CAP 300 MG PO STA (00:01)
[2020-12-11] MEDS: NEURONTIN CAP 300 MG PO SCH ×3 (00:13→20:52)
--- NOTE | 2020-12-11 02:34 | RAD ---
STUDY: FRONTAL VIEW CHESTCOMPARISON: 11/13/2020HISTORY: acute sobFINDINGS:No focal consolidation is seen.The heart size is globally enlarged but stable from prior exam with findings suggesting mild degree of pulmonary edema.The mediastinum is unremarkable.There is no evidence of pleural effusion or gross pneumothorax.The trachea is midline.IMPRESSION:1. No focal consolidation is seen.2. The heart size is globally enlarged but stable from prior exam with findings suggesting mild degree of pulmonary edema.Electronically signed by: Dawson Winchester (Dec 11, 2020 02:31:29)
[2020-12-11] MEDS ORDERED: KAYEXALATE SUSP PO NR ×2 (03:00→09:00)
[2020-12-11 04:56] LABS: CALCIUM 8.4 mg/dL (8.5-10.1); CARBON DIOXIDE 20.7 mmol/L (21-32); CREATININE 3.74 mg/dL (0.55-1.02); MAGNESIUM 1.8 mg/dL (1.7-2.9)
[2020-12-11] MEDS ORDERED: NEURONTIN CAP 100 MG ONE (08:30)
[2020-12-11] MEDS ORDERED: LASIX IVP ONE (08:30)
[2020-12-11] MEDS ORDERED: KAYEXALATE SUSP ONE (08:31)
[2020-12-11] MEDS ORDERED: LASIX IVP SCH ×2 (09:00→17:00)
--- NOTE | 2020-12-11 10:54 | DR.H&P ---
H&P - History & Physical for Day of: H&P Date: 12/11/20 - Chief Complaint Chief Complaint: SOB, COUGH, WHEEZING, SWELLING - History of Present Illness History of Present Illness: IS A 45 YEAR OLD PATIENT OF OURS WHO PRESENTED TO THE ER WITH COMPLAINTS OF WHEEZING, COUGHING, SHORTNESS OF BREATH, AND GENERALIZED WEAKNESS. SYMPTOMS STARTED 2-3 DAYS AGO AND HAVE PROGRESSIVELY GOTTEN WORSE. SHE REPORTS THAT HER COUGH IS NON-PRODUCTIVE. SHE DENIES FEVER, CHEST PAIN, ABDOMINAL PAIN, OR N/V/D. HER PMH INCLUDES CHF, CAD, DIABETES, HTN, LA, RENAL DISEASE, AND APPENDECTOMY. PATIENT STATES THAT SHE WAS IN THE HOSPITAL AT [facility] LAST MONTH FOR RENAL FAILURE. 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 AUSCULTATION REVEALED SCATTERED WHEEZING THROUGHOUT. EXAMINATION DID REVEAL 1+ PITTING EDEMA TO ALL EXTREMITIES. ON ARRIVAL TO THE ER, VITALS WERE 98.3-90-24-99%-219/95. LABS WERE OBTAINED. LABS WERE OBTAINED. ABNORMAL LAB VALUES INCLUDED THE FOLLOWING: HGB 8.6, HCT 27.3, POTASSIUM 5.7, CHLORIDE 108, BUN 53, CREATININE 3.74, GLUCOSE 238, CALCIUM 8.2, TOTAL BILI 0.10, AST 46, ALK PHOS 147, CREATINE KINASE 309, BNP 392, TOTAL PROTEIN 6.3, ALBUMIN 2.2. CARDIAC ENZYMES ARE WITHIN NORMAL LIMITS. COVID-19 NEGATIVE. A CHEST XRAY WAS OBTAINED AND REVEALED: 1. No focal consolidation is seen. 2. The heart size is globally enlarged but stable from prior exam with findings suggesting mild degree of pulmonary edema. SHE WAS GIVEN APRESOLINE 20MG IV X 1 DOSE FOR HER BLOOD PRESSURE. IT DECREASED TO 149/74. SHE WAS ALSO GIVEN LASIX 80MG IV X 1 DOSE, KAYEXALATE 15G PO X 1 DOSE, AND NEURONTIN 300MG PO X 1 DOSE IN THE ER. SHE REPORTED MILD IMPROVEMENT IN SYMPTOMS AFTER RECEIVING THE LASIX. SHE WAS ADMITTED TO THE HOSPITAL FOR FURTHER EVAUATION AND TREATMENT OF CHF, CHRONIC RENAL FAILURE, AND HYPERKALEMIA. SHE WAS STARTED ON LASIX 20MG IV BID, HUMULIN R SLIDING SCALE, OTBS ACHS, NEURONTIN 300MG PO BID, AND WE WILL REVIEW HER OTHER HOME MEDICATIONS WHEN THEY ARE AVAILABLE TO US. WE WILL OBTAIN HER RECENT RECORDS FROM [facility]. OTHERWISE, WE PLAN TO FOLLOW UP WITH AM LABS AND CONTINUE TO MONITOR. TIME SPENT ON CLINICAL ASSESSMENT, REVIEWING LABS AND IMAGING, DECISION MAKING, AND DOCUMENTATION GREATER THAN 75 MINUTES. 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 - Family History Family Medical History: Diabetes Mellitus, Cancer, Hypertension - Social History Does patient currently use any type of tobacco product: No Have you used tobacco products in the last 12 months: No Type of Tobacco Use: None Does any household member use tobacco: No Alcohol Use: None Drug Use: None - Medications Home Medications: No Known Drug Allergies Allergy (Verified 04/25/20 10:58) CONTINUE taking the following medications zolpidem 5 mg PO DAILY 12/11/20 [History] - Review of Systems Constitutional: Weakness Eyes: No Symptoms Reported ENT: No Symptoms Reported Respiratory: See HPI, Cough, Shortness of Breath, SOB with Excertion, Wheezing Cardiovascular: Edema Gastrointestinal: No Symptoms Reported Genitourinary: No Symptoms Reported Musculoskeletal: No Symptoms Reported Skin: No Symptoms Reported Neurological: Weakness - Physical Exam Vital Signs: Temperature 98.7 F Pulse Rate [Right] 91 Pulse Rate 87 Respiratory Rate 20 Blood Pressure [Right Arm] 139/70 Blood Pressure [Left Arm] 167/79 Blood Pressure 164/74 O2 Sat by Pulse Oximetry 100 Oriented: Normal Eyes: Normal Ear: Normal Nose: Normal Throat: Normal Respiratory: Wheezes Throughout Cardiovascular: Edema (1+ PITTING EDEMA TO EXTREMITIES ) : Normal Auscultation: Bowel Sounds: Normal Palpation: Normal Tenderness: Normal Skin: Normal Musculoskeletal: Normal Psychiatric: Normal Mood Description: Calm Affect: Normal Speech Pattern: Clear - Assessment/Plan (1) CHF (congestive heart failure) Qualifiers: Heart failure type: unspecified Heart failure chronicity: unspecified Qualified Code(s): I50.9 - Heart failure, unspecified Status: Acute Plan: ADMIT, LASIX 20MG IV BID, HUMULIN R SLIDING SCALE, OTBS ACHS, NEURONTIN 300MG PO BID. REVIEW HOME MEDICATIONS (2) Acute on chronic renal failure Qualifiers: Acute renal failure type: unspecified Chronic kidney disease stage: stage 4 (severe) Qualified Code(s): N17.9 - Acute kidney failure, unspecified; N18.4 - Chronic kidney disease, stage 4 (severe) Status: Acute (3) Acute hypokalemia Status: Acute (4) Essential hypertension Status: Chronic - Allergies Allergies/Adverse Reactions: Allergies Allergy/AdvReac Type Severity Reaction Status Date / Time No Known Drug Allergies Allergy Verified 04/25/20 10:58
[2020-12-11 11:34] LABS: CREATINE KINASE 266 Units/L (26-192); CREATINE KINASE MB 2.6 ng/mL (0-4.0); TROPONIN I < 0.02 ng/mL (0-1.5)
[2020-12-11] MEDS: HumuLIN R SUBCUT PRN ×2 (12:32→21:15)
[2020-12-11 15:16] LABS: CREATINE KINASE 241 Units/L (26-192); CREATINE KINASE MB 2.4 ng/mL (0-4.0); TROPONIN I < 0.02 ng/mL (0-1.5)
--- NOTE | 2020-12-12 05:49 | RAD ---
PROCEDURE: Chest X-ray 1 View .HISTORY: Short of breath.TECHNIQUE: AP view .COMPARISON: 12/10/2020.TECHNICAL QUALITY: Satisfactory .FINDINGS:Unchanged cardiomegaly.No mediastinal widening.Increased central vascularity compared to previous study.Mild consolidation both lung barboza probably related to edema with no pleural fluid or pneumothorax.IMPRESSION:Mild congestive heart failure.Electronically signed by: Filiberto Carranza (Dec 12, 2020 05:47:39)
[2020-12-12 06:19] LABS: BASOPHILS # (AUTO) 0.1 X10^3/uL (0.0-0.1); BASOPHILS % (AUTO) 1.3 % (0.2-1.0); EOSINOPHILS # (AUTO) 0.3 x10^3/uL (0.0-0.2); EOSINOPHILS % (AUTO) 5.2 % (0.9-2.9); HEMATOCRIT 23.9 % (36.0-47.0); HEMOGLOBIN 7.6 g/dL (12.0-16.0); LYMPHOCYTES # (AUTO) 1.3 X10^3/uL (1.3-2.9); LYMPHOCYTES % (AUTO) 20.2 % (21.0-51.0); MEAN CORPUSCULAR HGB CONC 31.7 g/dL (33.0-35.0); MEAN CORPUSCULAR VOLUME 72.4 fL (80.0-100.0); MEAN PLATELET VOLUME 8.2 fL (7.4-11.0); MONOCYTES # (AUTO) 0.4 x10^3/uL (0.3-0.8); MONOCYTES % (AUTO) 6.1 % (0.0-13.0); NEUTROPHILS # (AUTO) 4.4 x10^3/uL (2.2-4.8); NEUTROPHILS % (AUTO) 67.2 % (42.0-75.0); PLATELET COUNT 339 X10^3/uL (150.0-450.0); RED CELL DISTRIBUTION WIDTH 16.4 % (11.6-16.5); WHITE BLOOD COUNT 6.6 X10^3/uL (3.6-10.0)
[2020-12-12 06:26] LABS: CALCIUM 8.4 mg/dL (8.5-10.1); CARBON DIOXIDE 25.7 mmol/L (21-32); CREATININE 3.34 mg/dL (0.55-1.02); TOTAL PROTEIN 5.8 g/dL (6.4-8.2)
[2020-12-12 06:29] LABS: PLATELET MORPHOLOGY COMMENT NORMAL (NORMAL)
[2020-12-12 06:31] LABS: HYPOCHROMASIA SLIGHT; MICROCYTOSIS SLIGHT
[2020-12-12] MEDS: NEURONTIN CAP 300 MG PO SCH ×2 (08:27→21:17)
[2020-12-12] MEDS ORDERED: LASIX IVP SCH (09:00)
[2020-12-12] MEDS ORDERED: NS 100 ML IV 100 ML with VENOFER 400 MG IV NR ×2 (11:43)
[2020-12-12] MEDS ORDERED: PROCRIT or EPOGEN VIAL 20,000 UNITS SC ONE (11:43)
[2020-12-12] MEDS ORDERED: NS 100 ML IV 100 ML IV ONE (15:07)
[2020-12-12] MEDS ORDERED: VENOFER IV ONE (15:07)
[2020-12-12] MEDS ORDERED: PROCRIT or EPOGEN VIAL 20,000 UNITS ONE (15:08)
[2020-12-12] MEDS: HumuLIN R SUBCUT PRN ×2 (17:39→21:17)
[2020-12-12] MEDS: LASIX IVP SCH (17:40)
--- NOTE | 2020-12-13 05:45 | RAD ---
PROCEDURE: Chest X-ray 1 View .HISTORY: Congestive heart failure.TECHNIQUE: AP view .COMPARISON: 12/12/2020.TECHNICAL QUALITY: Satisfactory .FINDINGS:Unchanged mild cardiomegaly.Improved central vascularity.Continued edema lung bases with no pleural fluid or pneumothorax.IMPRESSION:Unchanged consolidation bilaterally may represent edema with mild cardiomegaly.Electronically signed by: Filiberto Carranza (Dec 13, 2020 05:43:48)
[2020-12-13 06:00] LABS: BASOPHILS # (AUTO) 0.1 X10^3/uL (0.0-0.1); BASOPHILS % (AUTO) 0.9 % (0.2-1.0); EOSINOPHILS # (AUTO) 0.4 x10^3/uL (0.0-0.2); EOSINOPHILS % (AUTO) 6.1 % (0.9-2.9); HEMATOCRIT 28.8 % (36.0-47.0); HEMOGLOBIN 8.8 g/dL (12.0-16.0); LYMPHOCYTES # (AUTO) 1.3 X10^3/uL (1.3-2.9); LYMPHOCYTES % (AUTO) 18.7 % (21.0-51.0); MEAN CORPUSCULAR HEMOGLOBIN 22.3 pg (27.0-34.0); MEAN CORPUSCULAR HGB CONC 30.4 g/dL (33.0-35.0); MEAN CORPUSCULAR VOLUME 73.3 fL (80.0-100.0); MONOCYTES # (AUTO) 0.5 x10^3/uL (0.3-0.8); MONOCYTES % (AUTO) 6.6 % (0.0-13.0); NEUTROPHILS # (AUTO) 4.8 x10^3/uL (2.2-4.8); NEUTROPHILS % (AUTO) 67.7 % (42.0-75.0); PLATELET COUNT 404 X10^3/uL (150.0-450.0); RED BLOOD COUNT 3.93 X10^6/uL (3.5-5.4); WHITE BLOOD COUNT 7.1 X10^3/uL (3.6-10.0)
[2020-12-13 06:10] LABS: ALBUMIN 2.2 g/dL (3.4-5.0); CALCIUM 8.5 mg/dL (8.5-10.1); CARBON DIOXIDE 25.6 mmol/L (21-32); COR CA(FOR HYPOALB) 9.9 mg/dL (8.5-10.1); CREATININE 3.22 mg/dL (0.55-1.02); TOTAL PROTEIN 6.4 g/dL (6.4-8.2)
[2020-12-13 06:41] LABS: HYPOCHROMASIA 1+; MICROCYTOSIS 1+; PLATELET MORPHOLOGY COMMENT NORMAL (NORMAL)
[2020-12-13] MEDS: NEURONTIN CAP 300 MG PO SCH ×2 (10:00→20:35)
[2020-12-13] MEDS: LASIX IVP SCH ×2 (10:00→18:00)
[2020-12-13] MEDS: APRESOLINE TAB 25 MG PO SCH ×3 (12:58→20:35)
[2020-12-13] MEDS: HumuLIN R SUBCUT PRN ×2 (12:59→20:40)
[2020-12-13] MEDS: LIPITOR TAB 20 MG PO SCH ×2 (20:35→20:38)
[2020-12-13] MEDS: COREG TAB 25 MG PO SCH (20:35)
[2020-12-13] MEDS: AMBIEN PO SCH (21:20)
--- NOTE | 2020-12-14 04:22 | RAD ---
PROCEDURE: Chest X-ray 1 View .HISTORY: Short of breath.TECHNIQUE: AP view .COMPARISON: 12/13/2020.TECHNICAL QUALITY: Satisfactory .FINDINGS:Unchanged cardiomegaly.Mediastinum and hilar regions show no masses or lymphadenopathy .Normal central vascularity .Continued hazy increased density perihilar regions may represent mild edema unchanged from previous exam. No pleural fluid or pneumothorax.No acute bony abnormality .IMPRESSION:Unchanged possible mild failure.Electronically signed by: Filiberto Carranza (Dec 14, 2020 04:20:56)
[2020-12-14 06:23] LABS: BASOPHILS # (AUTO) 0.1 X10^3/uL (0.0-0.1); BASOPHILS % (AUTO) 1.3 % (0.2-1.0); EOSINOPHILS # (AUTO) 0.4 x10^3/uL (0.0-0.2); EOSINOPHILS % (AUTO) 4.8 % (0.9-2.9); HEMATOCRIT 27.3 % (36.0-47.0); HEMOGLOBIN 8.3 g/dL (12.0-16.0); LYMPHOCYTES # (AUTO) 1.2 X10^3/uL (1.3-2.9); LYMPHOCYTES % (AUTO) 15.1 % (21.0-51.0); MEAN CORPUSCULAR HEMOGLOBIN 22.4 pg (27.0-34.0); MEAN CORPUSCULAR HGB CONC 30.6 g/dL (33.0-35.0); MEAN CORPUSCULAR VOLUME 73.2 fL (80.0-100.0); MEAN PLATELET VOLUME 8.3 fL (7.4-11.0); MONOCYTES # (AUTO) 0.6 x10^3/uL (0.3-0.8); MONOCYTES % (AUTO) 7.3 % (0.0-13.0); NEUTROPHILS # (AUTO) 5.5 x10^3/uL (2.2-4.8); NEUTROPHILS % (AUTO) 71.5 % (42.0-75.0); PLATELET COUNT 351 X10^3/uL (150.0-450.0); RED BLOOD COUNT 3.73 X10^6/uL (3.5-5.4); RED CELL DISTRIBUTION WIDTH 16.5 % (11.6-16.5); WHITE BLOOD COUNT 7.7 X10^3/uL (3.6-10.0)
[2020-12-14 06:31] LABS: CALCIUM 8.3 mg/dL (8.5-10.1); CARBON DIOXIDE 27.4 mmol/L (21-32); COR CA(FOR HYPOALB) 9.9 mg/dL (8.5-10.1); CREATININE 3.2 mg/dL (0.55-1.02); TOTAL PROTEIN 5.9 g/dL (6.4-8.2)
[2020-12-14 06:48] LABS: HYPOCHROMASIA 1+; PLATELET MORPHOLOGY COMMENT NORMAL (NORMAL)
[2020-12-14] MEDS: LASIX IVP SCH ×2 (08:26→20:26)
[2020-12-14] MEDS: NEURONTIN CAP 300 MG PO SCH ×2 (08:27→20:27)
[2020-12-14] MEDS: COREG TAB 25 MG PO SCH ×2 (08:27→20:26)
[2020-12-14] MEDS: APRESOLINE TAB 25 MG PO SCH ×4 (08:27→20:26)
[2020-12-14] MEDS ORDERED: LASIX IVP ONE (09:40)
[2020-12-14] MEDS: PLAVIX PO SCH (10:11)
[2020-12-14] MEDS: HumuLIN R SUBCUT PRN (20:27)
[2020-12-14] MEDS: LIPITOR TAB 20 MG PO SCH (20:27)
--- NOTE | 2020-12-14 21:23 | PCM.PROG ---
Progress Note - Progress Note for Day of Date of Exam: 12/14/20 - Subjective Subjective: WAS ADMITTED ON 12/11/20 FOR TREATMENT OF CONGESTIVE HEART FAILURE, ACUTE ON CHRONIC RENAL FAILURE, HYPOKALEMIA, AND HYPERTENSION. TODAY, SHE IS ALERT AND ORIENTED, LYING IN BED ON MORNING ROUNDS. SHE IS CURRENTLY UTILIZING THE BIPAP. HER SATURATIONS ON THE BIPAP HAVE BEEN 98-100% THIS MORNING AND THROUGHOUT THE NIGHT. SHE CONTINUES WITH COMPLAINTS OF WEAKNESS AND SHORTNESS OF BREATH AT TIMES. SYMPTOMS ARE WORSE WITH EXERTION. ON EXAMINATION, HEART IS REGULAR IN RATE AND RHYTHM. BILATERAL LUNGS ARE NOTED WITH DIMINISHED LUNG SOUNDS THROUGHOUT. ABDOMEN IS ROUND, SOFT, AND NON-TENDER WITH NORMAL BOWEL SOUNDS NOTED IN ALL QUADRANTS. BILATERAL LOWER EXTREMITIES ARE NOTED TO HAVE 1+ PITTING EDEMA. HER VITALS THIS MORNING ARE: 98.3-83-18-98%BIPAP-150/77. LABS WERE OBTAINED. ABNORMAL LAB VALUES INCLUDE THE FOLLOWING: HGB 8.3, HCT 27.3, BUN 44, CREATININE 3.20, GLUCOSE 165, CALCIUM 8.3, TOTAL BILI 0.10, BNP 214, TOTAL PROTEIN 5.9, ALBUMIN 2.0. A CHEST XRAY WAS OBTAINED TODAY AND REVEALED: Unchanged possible mild failure. SHE IS CURRENTLY RECEIVING LASIX 60MG IV BID, LIPITOR 20MG PO HS, COREG 25MG PO BID, PLAVIX 75MG PO DAILY, APRESOLINE 50MG PO QID, AMBIEN 5MG PO HS, HUMULIN R SLIDING SCALE, OTBS ACHS, NEURONTIN 300MG PO BID. TODAY, WE WILL INCRASE LASIX TO 80MG PO BID AND RESTRICT FLUIDS TO LESS THAN 1,000 ML/DAY. OTHERWISE, WE WILL CONTINUE WITH CURRENT PLAN OF CARE. TIME SPENT ON CLINICAL ASSESSMENT, REVIEWING LABS AND IMAGING, DECISION MAKING, AND DOCUMENTATION GREATER THAN 45 MINUTES. - Past Medical Family Social History Past Med/Fam/Surg Hx: No changes since H&P Allergies: Allergies No Known Drug Allergies Allergy (Verified 04/25/20 10:58) - Review of Systems ROS: No change since H&P - Vital Signs and I&O's Vital Signs: Temperature 98.4 F Pulse Rate [Right] 98 Pulse Rate 100 Respiratory Rate 20 Blood Pressure [Right Arm] 142/63 Blood Pressure [Left Arm] 167/79 Blood Pressure 164/74 O2 Sat by Pulse Oximetry 100 Intake and Output: Intake & Output 04/24/21 04/25/21 04/26/21 04/27/21 11:59 11:59 11:59 11:59 Intake Total 580 / 580 860 / 860 990 / 990 380 / 380 Output Total 0 / 0 Balance 580 / 580 860 / 860 990 / 990 380 / 380 - Physical Exam Oriented: Normal Eyes: Normal Ear: Normal Nose: Normal Throat: Normal Respiratory: Generalized, Diminished Cardiovascular: Edema (1+ PITTING EDEMA TO EXTREMITIES ) : Normal Auscultation: Bowel Sounds: Normal Palpation: Normal Tenderness: Normal Skin: Normal Musculoskeletal: Normal Psychiatric: Normal Mood Description: Calm Affect: Normal Speech Pattern: Clear, Appropriate - Laboratory and Diagnostics Result Diagrams: 12/14/20 05:38 12/14/20 05:38 Labs: Laboratory WBC 7.7 X10^3/uL (3.6-10.0) 12/14/20 05:38 RBC 3.73 X10^6/uL (3.5-5.4) 12/14/20 05:38 Hgb 8.3 g/dL (12.0-16.0) L 12/14/20 05:38 Hct 27.3 % (36.0-47.0) L 12/14/20 05:38 MCV 73.2 fL (80.0-100.0) L 12/14/20 05:38 MCH 22.4 pg (27.0-34.0) L 12/14/20 05:38 MCHC 30.6 g/dL (33.0-35.0) L 12/14/20 05:38 RDW 16.5 % (11.6-16.5) 12/14/20 05:38 Plt Count 351 X10^3/uL (150.0-450.0) 12/14/20 05:38 Plt Count Comment Adequate (ADEQUATE) 12/14/20 05:38 MPV 8.3 fL (7.4-11.0) 12/14/20 05:38 Neut % (Auto) 71.5 % (42.0-75.0) 12/14/20 05:38 Lymph % (Auto) 15.1 % (21.0-51.0) L 12/14/20 05:38 [place] % (Auto) 7.3 % (0.0-13.0) 12/14/20 05:38 Eos % (Auto) 4.8 % (0.9-2.9) H 12/14/20 05:38 Baso % (Auto) 1.3 % (0.2-1.0) H 12/14/20 05:38 Neut # (Auto) 5.5 x10^3/uL (2.2-4.8) H 12/14/20 05:38 Lymph # (Auto) 1.2 X10^3/uL (1.3-2.9) L 12/14/20 05:38 [place] # (Auto) 0.6 x10^3/uL (0.3-0.8) 12/14/20 05:38 Eos # (Auto) 0.4 x10^3/uL (0.0-0.2) H 12/14/20 05:38 Baso # (Auto) 0.1 X10^3/uL (0.0-0.1) 12/14/20 05:38 Absolute Nucleated RBC 0.2 /100WBC 12/14/20 05:38 Plt Morphology Comment Normal (NORMAL) 12/14/20 05:38 RBC Morphology Abnormal (NORMAL) A 12/14/20 05:38 Hypochromasia 1+ A 12/14/20 05:38 Microcytosis 1+ A 12/13/20 05:40 Sodium 141 mmol/L (136-145) 12/14/20 05:38 Corrected Sodium 143 mmol/L (136-145) 12/14/20 05:38 Potassium 4.6 mmol/L (3.5-5.1) 12/14/20 05:38 Chloride 107 mmol/L (98-107) 12/14/20 05:38 Carbon Dioxide 27.4 mmol/L (21-32) 12/14/20 05:38 BUN 44 mg/dL (7-18) H 12/14/20 05:38 Creatinine 3.20 mg/dL (0.55-1.02) H 12/14/20 05:38 Est GFR (MDRD) Af Amer 20 (>60) L 12/14/20 05:38 Est GFR (MDRD) Non-Af 17 (>60) L 12/14/20 05:38 Glucose 165 mg/dL (65-99) H 12/14/20 05:38 POC Glucose (mg/dL) 294 mg/dL (65-99) H 12/14/20 20:03 Calcium 8.3 mg/dL (8.5-10.1) L 12/14/20 05:38 Corrected Calcium 9.9 mg/dL (8.5-10.1) 12/14/20 05:38 Magnesium 1.8 mg/dL (1.7-2.9) 12/11/20 04:25 Total Bilirubin 0.10 mg/dL (0.2-1.0) L 12/14/20 05:38 AST 15 Units/L (15-37) 12/14/20 05:38 ALT 27 Units/L (12-78) 12/14/20 05:38 Alkaline Phosphatase 111 Units/L (46-116) 12/14/20 05:38 Creatine Kinase 241 Units/L (26-192) H 12/11/20 14:40 CK-MB (CK-2) 2.4 ng/mL (0-4.0) 12/11/20 14:40 CK/CKMB % Calc 1.0 % (<4) 12/11/20 14:40 Troponin I < 0.02 ng/mL (0-1.5) 12/11/20 14:40 B-Natriuretic Peptide 214 pg/mL (0-79) H 12/14/20 05:38 Total Protein 5.9 g/dL (6.4-8.2) L 12/14/20 05:38 Albumin 2.0 g/dL (3.4-5.0) L 12/14/20 05:38 Globulin 3.9 g/dL (2.5-4.5) 12/14/20 05:38 Albumin/Globulin Ratio 0.5 Ratio (1.1-2.1) L 12/14/20 05:38 SARS CoV-2 RNA Rapid HANG Negative (NEGATIVE) 12/11/20 06:17 - Plan (1) CHF (congestive heart failure) Status: Acute Qualifiers: Heart failure type: unspecified Heart failure chronicity: unspecified Qualified Code(s): I50.9 - Heart failure, unspecified Plan: LASIX 80MG IV BID, LIPITOR 20MG PO HS, COREG 25MG PO BID, PLAVIX 75MG PO DAILY, APRESOLINE 50MG PO QID, AMBIEN 5MG PO HS, HUMULIN R SLIDING SCALE, OTBS ACHS, NEURONTIN 300MG PO BID. (2) Acute on chronic renal failure Status: Acute Qualifiers: Acute renal failure type: unspecified Chronic kidney disease stage: stage 4 (severe) Qualified Code(s): N17.9 - Acute kidney failure, unspecified; N18.4 - Chronic kidney disease, stage 4 (severe) (3) Acute hypokalemia Status: Acute (4) Essential hypertension Status: Chronic
[2020-12-14] MEDS: AMBIEN PO SCH (21:51)
--- NOTE | 2020-12-15 05:02 | RAD ---
PROCEDURE: Chest X-ray 1 View .HISTORY: Short of breath.TECHNIQUE: AP view .COMPARISON: None .TECHNICAL QUALITY: Satisfactory .FINDINGS:Unchanged cardiomegaly.Mediastinum and hilar regions show no masses or lymphadenopathy .Normal central vascularity .Resolution of patient's pulmonary consolidation with no pleural fluid or pneumothorax.No acute bony abnormality .IMPRESSION:Cardiomegaly with no evidence of failure pneumonia.Electronically signed by: Filiberto Carranza (Dec 15, 2020 05:00:54)
[2020-12-15] MEDS: HumuLIN R SUBCUT PRN ×4 (05:39→20:26)
[2020-12-15 05:59] LABS: BASOPHILS # (AUTO) 0.1 X10^3/uL (0.0-0.1); BASOPHILS % (AUTO) 1.5 % (0.2-1.0); EOSINOPHILS # (AUTO) 0.3 x10^3/uL (0.0-0.2); HEMOGLOBIN 7.9 g/dL (12.0-16.0); LYMPHOCYTES # (AUTO) 0.8 X10^3/uL (1.3-2.9); LYMPHOCYTES % (AUTO) 11.6 % (21.0-51.0); MEAN CORPUSCULAR HEMOGLOBIN 22.3 pg (27.0-34.0); MEAN CORPUSCULAR HGB CONC 30.4 g/dL (33.0-35.0); MEAN CORPUSCULAR VOLUME 73.1 fL (80.0-100.0); MEAN PLATELET VOLUME 8.3 fL (7.4-11.0); MONOCYTES # (AUTO) 0.6 x10^3/uL (0.3-0.8); NEUTROPHILS # (AUTO) 5.1 x10^3/uL (2.2-4.8); NEUTROPHILS % (AUTO) 73.9 % (42.0-75.0); PLATELET COUNT 345 X10^3/uL (150.0-450.0); RED BLOOD COUNT 3.56 X10^6/uL (3.5-5.4); RED CELL DISTRIBUTION WIDTH 16.2 % (11.6-16.5); WHITE BLOOD COUNT 6.9 X10^3/uL (3.6-10.0)
[2020-12-15 06:09] LABS: ALBUMIN 1.9 g/dL (3.4-5.0); CALCIUM 8.3 mg/dL (8.5-10.1); CREATININE 3.43 mg/dL (0.55-1.02); TOTAL PROTEIN 5.6 g/dL (6.4-8.2)
[2020-12-15 06:20] LABS: HYPOCHROMASIA SLIGHT; MICROCYTOSIS SLIGHT; PLATELET MORPHOLOGY COMMENT NORMAL (NORMAL)
[2020-12-15] MEDS: APRESOLINE TAB 25 MG PO SCH ×3 (08:57→20:24)
[2020-12-15] MEDS: COREG TAB 25 MG PO SCH ×2 (08:58→20:25)
[2020-12-15] MEDS: NEURONTIN CAP 300 MG PO SCH ×2 (08:58→20:25)
[2020-12-15] MEDS: PLAVIX PO SCH (08:58)
[2020-12-15] MEDS: LASIX IVP SCH (08:59)
[2020-12-15] MEDS ORDERED: PROCRIT or EPOGEN VIAL 10,000 UNITS SC ONE (09:35)
--- NOTE | 2020-12-15 11:07 | PCM.PROG ---
Progress Note - Progress Note for Day of Date of Exam: 12/15/20 - Subjective Subjective: WAS ADMITTED ON 12/11/20 FOR TREATMENT OF CONGESTIVE HEART FAILURE, ACUTE ON CHRONIC RENAL FAILURE, HYPOKALEMIA, AND HYPERTENSION. TODAY, SHE IS ALERT AND ORIENTED, LYING IN BED ON MORNING ROUNDS. SHE IS CURRENTLY UTILIZING THE BIPAP. HER SATURATIONS ON THE BIPAP HAVE BEEN 97-100% THIS MORNING AND THROUGHOUT THE NIGHT. HER SATURATIONS DID DROP TO THE 80s WHILE AMBULATING IN THE ROOM YESTERDAY ON ROOM AIR. SHE CONTINUES WITH COMPLAINTS OF WEAKNESS AND SHORTNESS OF BREATH AT TIMES. SYMPTOMS ARE WORSE WITH EXERTION. ON EXAMINATION, HEART IS REGULAR IN RATE AND RHYTHM. BILATERAL LUNGS ARE NOTED WITH DIMINISHED LUNG SOUNDS THROUGHOUT. ABDOMEN IS ROUND, SOFT, AND NON-TENDER WITH NORMAL BOWEL SOUNDS NOTED IN ALL QUADRANTS. BILATERAL LOWER EXTREMITIES ARE NOTED TO HAVE 1+ PITTING EDEMA. HER VITALS THIS MORNING ARE: 98.6-87-18-97%-155/76. LABS WERE OBTAINED. ABNORMAL LAB VALUES INCLUDE THE FOLLOWING: HGB 7.9, HCT 26.0, BUN 45, CREATININE 3.43, GLUCOSE 189, CALCIUM 8.3, TOTAL BILI 0.10, AST 13, BNP 180, TOTAL PROTEIN 5.6, ALBUMIN 1.9. A CHEST XRAY WAS OBTAINED TODAY AND REVEALED: Cardiomegaly with no evidence of failure pneumonia. HER ECHO REVEALED AN EJECTION FRACTION OF 70%. SHE IS CURRENTLY RECEIVING LASIX 80MG IV BID, LIPITOR 20MG PO HS, COREG 25MG PO BID, PLAVIX 75MG PO DAILY, APRESOLINE 50MG PO QID, AMBIEN 5MG PO HS, HUMULIN R SLIDING SCALE, OTBS ACHS, NEURONTIN 300MG PO BID. WE WILL CONTINUE TO RESTRICT FLUIDS TO LESS THAN 1,000 ML/DAY. WE WILL ADD PROCRIT 5,000 UNITS X 1 DOSE TODAY. OTHERWISE, WE WILL CONTINUE WITH CURRENT PLAN OF CARE. TIME SPENT ON CLINICAL ASSESSMENT, REVIEWING LABS AND IMAGING, DECISION MAKING, AND DOCUMENTATION GREATER THAN 45 MINUTES. - Past Medical Family Social History Past Med/Fam/Surg Hx: No changes since H&P Allergies: Allergies No Known Drug Allergies Allergy (Verified 04/25/20 10:58) - Review of Systems ROS: No change since H&P - Vital Signs and I&O's Vital Signs: Temperature 98.6 F Pulse Rate [Right] 87 Pulse Rate 100 Respiratory Rate 18 Blood Pressure [Right Arm] 155/76 Blood Pressure [Left Arm] 167/79 Blood Pressure 164/74 O2 Sat by Pulse Oximetry 97 Intake and Output: Intake & Output 12/12/20 12/13/20 12/14/20 12/15/20 11:59 11:59 11:59 11:59 Intake Total 580 / 580 860 / 860 990 / 990 1440 / 1440 Output Total 0 / 0 Balance 580 / 580 860 / 860 990 / 990 1440 / 1440 - Physical Exam Oriented: Normal Eyes: Normal Ear: Normal Nose: Normal Throat: Normal Respiratory: Generalized, Diminished Cardiovascular: Edema (1+ PITTING EDEMA TO EXTREMITIES ) : Normal Auscultation: Bowel Sounds: Normal Palpation: Normal Tenderness: Normal Skin: Normal Musculoskeletal: Normal Psychiatric: Normal Mood Description: Calm Affect: Normal Speech Pattern: Clear, Appropriate - Laboratory and Diagnostics Result Diagrams: 12/15/20 05:07 12/15/20 05:07 Labs: Laboratory WBC 6.9 X10^3/uL (3.6-10.0) 12/15/20 05:07 RBC 3.56 X10^6/uL (3.5-5.4) 12/15/20 05:07 Hgb 7.9 g/dL (12.0-16.0) L 12/15/20 05:07 Hct 26.0 % (36.0-47.0) L 12/15/20 05:07 MCV 73.1 fL (80.0-100.0) L 12/15/20 05:07 MCH 22.3 pg (27.0-34.0) L 12/15/20 05:07 MCHC 30.4 g/dL (33.0-35.0) L 12/15/20 05:07 RDW 16.2 % (11.6-16.5) 12/15/20 05:07 Plt Count 345 X10^3/uL (150.0-450.0) 12/15/20 05:07 Plt Count Comment Adequate (ADEQUATE) 12/15/20 05:07 MPV 8.3 fL (7.4-11.0) 12/15/20 05:07 Neut % (Auto) 73.9 % (42.0-75.0) 12/15/20 05:07 Lymph % (Auto) 11.6 % (21.0-51.0) L 12/15/20 05:07 [place] % (Auto) 8.0 % (0.0-13.0) 12/15/20 05:07 Eos % (Auto) 5.0 % (0.9-2.9) H 12/15/20 05:07 Baso % (Auto) 1.5 % (0.2-1.0) H 12/15/20 05:07 Neut # (Auto) 5.1 x10^3/uL (2.2-4.8) H 12/15/20 05:07 Lymph # (Auto) 0.8 X10^3/uL (1.3-2.9) L 12/15/20 05:07 [place] # (Auto) 0.6 x10^3/uL (0.3-0.8) 12/15/20 05:07 Eos # (Auto) 0.3 x10^3/uL (0.0-0.2) H 12/15/20 05:07 Baso # (Auto) 0.1 X10^3/uL (0.0-0.1) 12/15/20 05:07 Absolute Nucleated RBC 0.2 /100WBC 12/15/20 05:07 Plt Morphology Comment Normal (NORMAL) 12/15/20 05:07 RBC Morphology Abnormal (NORMAL) A 12/15/20 05:07 Hypochromasia Slight A 12/15/20 05:07 Microcytosis Slight A 12/15/20 05:07 Sodium 140 mmol/L (136-145) 12/15/20 05:07 Corrected Sodium 142 mmol/L (136-145) 12/15/20 05:07 Potassium 4.5 mmol/L (3.5-5.1) 12/15/20 05:07 Chloride 107 mmol/L (98-107) 12/15/20 05:07 Carbon Dioxide 26.0 mmol/L (21-32) 12/15/20 05:07 BUN 45 mg/dL (7-18) H 12/15/20 05:07 Creatinine 3.43 mg/dL (0.55-1.02) H 12/15/20 05:07 Est GFR (MDRD) Af Amer 19 (>60) L 12/15/20 05:07 Est GFR (MDRD) Non-Af 15 (>60) L 12/15/20 05:07 Glucose 189 mg/dL (65-99) H 12/15/20 05:07 POC Glucose (mg/dL) 178 mg/dL (65-99) H 12/15/20 05:12 Calcium 8.3 mg/dL (8.5-10.1) L 12/15/20 05:07 Corrected Calcium 10.0 mg/dL (8.5-10.1) 12/15/20 05:07 Magnesium 1.8 mg/dL (1.7-2.9) 12/11/20 04:25 Total Bilirubin 0.10 mg/dL (0.2-1.0) L 12/15/20 05:07 AST 13 Units/L (15-37) L 12/15/20 05:07 ALT 21 Units/L (12-78) 12/15/20 05:07 Alkaline Phosphatase 102 Units/L (46-116) 12/15/20 05:07 Creatine Kinase 241 Units/L (26-192) H 12/11/20 14:40 CK-MB (CK-2) 2.4 ng/mL (0-4.0) 12/11/20 14:40 CK/CKMB % Calc 1.0 % (<4) 12/11/20 14:40 Troponin I < 0.02 ng/mL (0-1.5) 12/11/20 14:40 B-Natriuretic Peptide 180 pg/mL (0-79) H 12/15/20 05:07 Total Protein 5.6 g/dL (6.4-8.2) L 12/15/20 05:07 Albumin 1.9 g/dL (3.4-5.0) L 12/15/20 05:07 Globulin 3.7 g/dL (2.5-4.5) 12/15/20 05:07 Albumin/Globulin Ratio 0.5 Ratio (1.1-2.1) L 12/15/20 05:07 SARS CoV-2 RNA Rapid HANG Negative (NEGATIVE) 12/11/20 06:17 - Plan (1) CHF (congestive heart failure) Status: Acute Qualifiers: Heart failure type: unspecified Heart failure chronicity: unspecified Qualified Code(s): I50.9 - Heart failure, unspecified Plan: LASIX 80MG IV BID, LIPITOR 20MG PO HS, COREG 25MG PO BID, PLAVIX 75MG PO DAILY, APRESOLINE 50MG PO QID, AMBIEN 5MG PO HS, HUMULIN R SLIDING SCALE, OTBS ACHS, NEURONTIN 300MG PO BID. (2) Acute on chronic renal failure Status: Acute Qualifiers: Acute renal failure type: unspecified Chronic kidney disease stage: stage 4 (severe) Qualified Code(s): N17.9 - Acute kidney failure, unspecified; N18.4 - Chronic kidney disease, stage 4 (severe) (3) Acute hypokalemia Status: Acute (4) Anemia Status: Acute Qualifiers: Anemia type: unspecified type Qualified Code(s): D64.9 - Anemia, unspecified Plan: PROCRIT 5,000 UNITS SC TODAY (5) Essential hypertension Status: Chronic
[2020-12-15] MEDS: LOVENOX INJ 30 MG SYR SC SCH (11:54)
[2020-12-15] MEDS ORDERED: PROCRIT or EPOGEN VIAL 10,000 UNITS SC NR (12:00)
[2020-12-15] MEDS ORDERED: LASIX PO NR (15:00)
[2020-12-15] MEDS ORDERED: LEVSIN/MAALOX/LIDOC VISC PO ONE (19:29)
[2020-12-15] MEDS: LIPITOR TAB 20 MG PO SCH (20:25)
[2020-12-15 20:41] LABS: CKMB % 0.7 % (<4); CREATINE KINASE 196 Units/L (26-192); CREATINE KINASE MB 1.4 ng/mL (0-4.0); TROPONIN I < 0.02 ng/mL (0-1.5)
[2020-12-15] MEDS ORDERED: LASIX IVP SCH (21:00)
[2020-12-15] MEDS ORDERED: LASIX PO SCH (21:00)
[2020-12-15] MEDS ORDERED: PERCOCET TAB 5/325 MG PO ONE (21:42)
[2020-12-15] MEDS: AMBIEN PO SCH (22:26)
[2020-12-16] MEDS ORDERED: ZOFRAN TAB 4 MG SL PRN (04:25)
[2020-12-16] MEDS ORDERED: ZOFRAN TAB 4 MG ONE (04:31)
[2020-12-16 06:21] LABS: BASOPHILS # (AUTO) 0.1 X10^3/uL (0.0-0.1); BASOPHILS % (AUTO) 0.9 % (0.2-1.0); EOSINOPHILS # (AUTO) 0.3 x10^3/uL (0.0-0.2); HEMATOCRIT 28.5 % (36.0-47.0); HEMOGLOBIN 8.7 g/dL (12.0-16.0); LYMPHOCYTES # (AUTO) 0.7 X10^3/uL (1.3-2.9); MEAN CORPUSCULAR HEMOGLOBIN 22.5 pg (27.0-34.0); MEAN CORPUSCULAR HGB CONC 30.6 g/dL (33.0-35.0); MEAN CORPUSCULAR VOLUME 73.6 fL (80.0-100.0); MEAN PLATELET VOLUME 8.1 fL (7.4-11.0); MONOCYTES # (AUTO) 0.5 x10^3/uL (0.3-0.8); MONOCYTES % (AUTO) 6.3 % (0.0-13.0); NEUTROPHILS # (AUTO) 6.6 x10^3/uL (2.2-4.8); NEUTROPHILS % (AUTO) 79.8 % (42.0-75.0); PLATELET COUNT 330 X10^3/uL (150.0-450.0); RED BLOOD COUNT 3.88 X10^6/uL (3.5-5.4); RED CELL DISTRIBUTION WIDTH 16.4 % (11.6-16.5); WHITE BLOOD COUNT 8.3 X10^3/uL (3.6-10.0)
[2020-12-16 06:37] LABS: ALBUMIN 2.2 g/dL (3.4-5.0); CALCIUM 8.4 mg/dL (8.5-10.1); CARBON DIOXIDE 25.8 mmol/L (21-32); COR CA(FOR HYPOALB) 9.8 mg/dL (8.5-10.1); CREATININE 3.81 mg/dL (0.55-1.02); TOTAL PROTEIN 6.4 g/dL (6.4-8.2)
[2020-12-16 06:46] LABS: ANISOCYTOSIS SLIGHT; HYPOCHROMASIA 1+; PLATELET MORPHOLOGY COMMENT NORMAL (NORMAL)
[2020-12-16] MEDS: COREG TAB 25 MG PO SCH (09:48)
[2020-12-16] MEDS: APRESOLINE TAB 25 MG PO SCH (09:48)
[2020-12-16] MEDS: PLAVIX PO SCH (09:48)
[2020-12-16] MEDS: NEURONTIN CAP 300 MG PO SCH (09:48)
[2020-12-16] MEDS: LOVENOX INJ 30 MG SYR SC SCH (09:49)
--- NOTE | 2020-12-16 09:50 | PCM.PROG ---
Progress Note - Progress Note for Day of Date of Exam: 12/16/20 - Subjective Subjective: WAS ADMITTED FOR TREATMENT OF RIGHT KNEE CELLULITIS, INTRACTABLE KNEE PAIN, HYPOTENSION, AND GENERALIZED WEAKNESS. TODAY, HE IS ALERT AND ORIENTED, LYING IN BED ON MORNING ROUNDS. HE CONTINUES WITH COMPLAINTS OF PAIN TO THE RIGHT KNEE. STAFF REPORTS THAT HE REQUIRES MODERATE ASSISTANCE FOR AMBULATION AND IS UNABLE TO PUT WEIGHT ON THE RIGHT KNEE WITHOUT SEVERE PAIN. ON EXAMINATION, HEART IS REGULAR IN RATE AND RHYTHM. BILATERAL LUNGS ARE NOTED TO HAVE DIMINISHED LUNG SOUNDS THROUGHOUT. ABDOMEN IS ROUND, SOFT, AND NON-TENDER WITH NORMAL BOWEL SOUNDS NOTED IN ALL QUADRANTS. RIGHT KNEE CONTINUES WITH ERYTHEMA AND EDEMA. HIS VITALS THIS MORNING ARE: 98.7-64-12-99%-160/70. LABS WE RE OBTAINED. ABNORMAL LAB VALUES INCLUDE THE FOLLOWING: RBC 3.24, HGB 9.4, HCT 28.1, POTASSIUM 3.1, GLUCOSE 127, CALCIUM 8.0, ALT 9, ALBUMIN 2.7. HE IS CURRENTLY RECEIVING NORMAL SALINE AT 125 ML/HR, ZOSYN 3.375G IV TID, TORADOL 15MG IV Q6H DAVION, HUMULIN R SLIDING SCALE, OTBS ACHS, TEMOVATE CREAM TO LOWER EXTREMITIES BID, AND HIS HOME MEDICATIONS WERE RESUMED WITH THE EXCEPTION OF HIS ANTIHYPERTENSIVES. WE WILL CONTINUE WITH CURRENT PLAN OF CARE TODAY. PHYSICAL/OCCUPATIONAL THERAPIES WILL EVALUATE PATIENT TODAY. FAMILY IS REQUESTING THAT HE HAVE PHYSICAL THERAPY AND REHABILITATION AT [facility] UNTIL HE IS ABLE TO AMBULATE ON HIS OWN. OTHERWISE, WE PLAN TO FOLLOW UP WITH AM LABS AND CONTINUE TO MONITOR. TIME SPENT ON CLINICAL ASSESSMENT, REVIEWING LABS AND IMAGING, DECISION MAKING, AND DOCUMENTATION GREATER THAN 45 MINUTES. - Past Medical Family Social History Past Med/Fam/Surg Hx: No changes since H&P Allergies: Allergies No Known Drug Allergies Allergy (Verified 04/25/20 10:58) - Review of Systems ROS: No change since H&P - Vital Signs and I&O's Vital Signs: Temperature 98.8 F Pulse Rate [Right] 70 Pulse Rate 100 Respiratory Rate 24 Blood Pressure [Right Arm] 138/88 Blood Pressure [Left Arm] 143/67 Blood Pressure 164/74 O2 Sat by Pulse Oximetry 97 Intake and Output: Intake & Output 12/13/20 12/14/20 12/15/20 12/16/20 11:59 11:59 11:59 11:59 Intake Total 860 / 860 990 / 990 1440 / 1440 710 / 710 Balance 860 / 860 990 / 990 1440 / 1440 710 / 710 - Physical Exam Oriented: Normal Eyes: Normal Ear: Normal Nose: Normal Throat: Normal Respiratory: Generalized, Diminished Cardiovascular: Edema (1+ PITTING EDEMA TO EXTREMITIES ) : Normal Auscultation: Bowel Sounds: Normal Tenderness: Normal Skin: Normal Musculoskeletal: Normal Psychiatric: Normal Mood Description: Calm Affect: Normal Speech Pattern: Clear, Appropriate - Laboratory and Diagnostics Result Diagrams: 12/16/20 05:55 12/16/20 05:55 Labs: Laboratory WBC 8.3 X10^3/uL (3.6-10.0) 12/16/20 05:55 RBC 3.88 X10^6/uL (3.5-5.4) 12/16/20 05:55 Hgb 8.7 g/dL (12.0-16.0) L 12/16/20 05:55 Hct 28.5 % (36.0-47.0) L 12/16/20 05:55 MCV 73.6 fL (80.0-100.0) L 12/16/20 05:55 MCH 22.5 pg (27.0-34.0) L 12/16/20 05:55 MCHC 30.6 g/dL (33.0-35.0) L 12/16/20 05:55 RDW 16.4 % (11.6-16.5) 12/16/20 05:55 Plt Count 330 X10^3/uL (150.0-450.0) 12/16/20 05:55 Plt Count Comment Adequate (ADEQUATE) 12/16/20 05:55 MPV 8.1 fL (7.4-11.0) 12/16/20 05:55 Neut % (Auto) 79.8 % (42.0-75.0) H 12/16/20 05:55 Lymph % (Auto) 9.0 % (21.0-51.0) L 12/16/20 05:55 [place] % (Auto) 6.3 % (0.0-13.0) 12/16/20 05:55 Eos % (Auto) 4.0 % (0.9-2.9) H 12/16/20 05:55 Baso % (Auto) 0.9 % (0.2-1.0) 12/16/20 05:55 Neut # (Auto) 6.6 x10^3/uL (2.2-4.8) H 12/16/20 05:55 Lymph # (Auto) 0.7 X10^3/uL (1.3-2.9) L 12/16/20 05:55 [place] # (Auto) 0.5 x10^3/uL (0.3-0.8) 12/16/20 05:55 Eos # (Auto) 0.3 x10^3/uL (0.0-0.2) H 12/16/20 05:55 Baso # (Auto) 0.1 X10^3/uL (0.0-0.1) 12/16/20 05:55 Absolute Nucleated RBC 0.2 /100WBC 12/16/20 05:55 Plt Morphology Comment Normal (NORMAL) 12/16/20 05:55 RBC Morphology Abnormal (NORMAL) A 12/16/20 05:55 Hypochromasia 1+ A 12/16/20 05:55 Anisocytosis Slight A 12/16/20 05:55 Microcytosis Slight A 12/15/20 05:07 Sodium 138 mmol/L (136-145) 12/16/20 05:55 Corrected Sodium 140 mmol/L (136-145) 12/16/20 05:55 Potassium 5.1 mmol/L (3.5-5.1) 12/16/20 05:55 Chloride 105 mmol/L (98-107) 12/16/20 05:55 Carbon Dioxide 25.8 mmol/L (21-32) 12/16/20 05:55 BUN 44 mg/dL (7-18) H 12/16/20 05:55 Creatinine 3.81 mg/dL (0.55-1.02) H 12/16/20 05:55 Est GFR (MDRD) Af Amer 16 (>60) L 12/16/20 05:55 Est GFR (MDRD) Non-Af 14 (>60) L 12/16/20 05:55 Glucose 173 mg/dL (65-99) H 12/16/20 05:55 POC Glucose (mg/dL) 154 mg/dL (65-99) H 12/16/20 05:28 Calcium 8.4 mg/dL (8.5-10.1) L 12/16/20 05:55 Corrected Calcium 9.8 mg/dL (8.5-10.1) 12/16/20 05:55 Magnesium 1.8 mg/dL (1.7-2.9) 12/11/20 04:25 Total Bilirubin 0.10 mg/dL (0.2-1.0) L 12/16/20 05:55 AST 20 Units/L (15-37) 12/16/20 05:55 ALT 21 Units/L (12-78) 12/16/20 05:55 Alkaline Phosphatase 111 Units/L (46-116) 12/16/20 05:55 Creatine Kinase 196 Units/L (26-192) H 12/15/20 19:52 CK-MB (CK-2) 1.4 ng/mL (0-4.0) 12/15/20 19:52 CK/CKMB % Calc 0.7 % (<4) 12/15/20 19:52 Troponin I < 0.02 ng/mL (0-1.5) 12/15/20 19:52 B-Natriuretic Peptide 179 pg/mL (0-79) H 12/16/20 05:55 Total Protein 6.4 g/dL (6.4-8.2) 12/16/20 05:55 Albumin 2.2 g/dL (3.4-5.0) L 12/16/20 05:55 Globulin 4.2 g/dL (2.5-4.5) 12/16/20 05:55 Albumin/Globulin Ratio 0.5 Ratio (1.1-2.1) L 12/16/20 05:55 SARS CoV-2 RNA Rapid HANG Negative (NEGATIVE) 12/11/20 06:17 - Plan (1) CHF (congestive heart failure) Status: Acute Qualifiers: Heart failure type: unspecified Heart failure chronicity: unspecified Qualified Code(s): I50.9 - Heart failure, unspecified Plan: LASIX 80MG IV BID, LIPITOR 20MG PO HS, COREG 25MG PO BID, PLAVIX 75MG PO DAILY, APRESOLINE 50MG PO QID, AMBIEN 5MG PO HS, HUMULIN R SLIDING SCALE, OTBS ACHS, NEURONTIN 300MG PO BID. (2) Acute on chronic renal failure Status: Acute Qualifiers: Acute renal failure type: unspecified Chronic kidney disease stage: stage 4 (severe) Qualified Code(s): N17.9 - Acute kidney failure, unspecified; N18.4 - Chronic kidney disease, stage 4 (severe) (3) Acute hypokalemia Status: Acute (4) Anemia Status: Acute Qualifiers: Anemia type: unspecified type Qualified Code(s): D64.9 - Anemia, u nspecified Plan: PROCRIT 5,000 UNITS SC TODAY (5) Essential hypertension Status: Chronic
[2020-12-16] MEDS: HumuLIN R SUBCUT PRN (12:01)
[2020-12-16 12:04] VITALS: BP 124/73
== END 2020-12-16 12:40 | disposition home or self-care (01) | DRG 292 ==
LOC: OBS 22:00 → ER 22:00 → OBS 12-11 07:14 → MED/SURG 12-11 12:26
PROVIDERS: ADMIT Internal Medicine; ATTEND Internal Medicine
DX: I10 Essential (primary) hypertension; Z20.822 Contact with and (suspected) exposure to COVID-19; I25.10 Atherosclerotic heart disease of native coronary artery without angina pectoris; E11.65 Type 2 diabetes mellitus with hyperglycemia; R06.02 Shortness of breath; I50.9 Heart failure, unspecified; D64.9 Anemia, unspecified; N18.4 Chronic kidney disease, stage 4 (severe); E87.5 Hyperkalemia; R60.0 Localized edema; N17.8 Other acute kidney failure; R53.1 Weakness

== ENCOUNTER 2021-03-27 00:01 | Observation (INO) ==
--- NOTE | 2021-03-27 00:23 | DR.SOBA ---
HPI Time Seen Time Seen by Provider: 03/27/21 00:23 Primary Care Physician Primary Care Physician: HPI Comment HPI Comment: PATIENT IS 45YR OLD FEMALE IN ER WITH HISTORY OF CHF, CAD, CRD, HTN AND DM IN ER WITH PROGRESSIVE GENERALIZED SWELLING, SOB AND CHEST DISCOMFORT FOR SEVERAL WEEKS. WORSE TODAY. PATIENT IS HAVING CHEST TIGHTNESS AND WHEEZING. NO FEVER. CURRENTLY HAVING 7/10 SHARP AND ACHING PAIN THAT IS GENERALIZED. DENIES NAUSEA, VOMITING AND DYSURIA. KIDNEY FAILURE IS PROGRESSING AND IS IN THE ABOUT TO START DIALYSIS. URINE OUTPUT IS DECREASING. Complaints Chief Complaint Doctors Comments: INCREASING SOB, GENERALIZED SWELLING AND PAIN TIMES SEVERAL WEEKS. Chief Complaint:: PT C/O HURTING ALL OVER AND SOB. COVID-19 Coronavirus risk:travel/contact w/high risk person: No Has patient experienced Coronavirus symptoms: No Reviewed Nurses Notes Reviewed: Yes Source History Provided: Patient Mode of Arrival Mode of Arrival: EMS Timing Onset of Chief Complaint: 03/27/21 Duration Duration: Weeks Context Onset:: At Rest PE Risk Factors:: Immobilization History of:: CHF Currently on:: Neither Prehospital Care:: None and Furosemide Modifying Factors Worsens:: Exertion and Lying Flat Improves:: Rest and Sitting Up Associated Signs and Symptoms Associated Signs and Symptoms: Wheeze, Cough, Chest Pain, Leg Swelling and Numbness If Chest Pain Quality: Pleuritic Location: Substernal If Cough Cough: Productive and Clear Other History Other History: DM, CAD, CKD, HTN, CHF. PMH PMH Past Medical History: Yes Past Medical History: CHF, Coronary Artery Disease, Diabetes, Hypertension, ND and Renal Disease Past Medical History Comment: KIDNEY FAILURE Past Surgical History: Yes Surgical History: Appendectomy and ROOM SERVER Surgery Past Surgical History Comment: ABDOMINAL Family History History of Family Medical Conditions: Yes Family Medical History: Diabetes Mellitus, Cancer and Hypertension Social History Does any household member use tobacco: No Alcohol Use: None Do you use any recreational Drugs:: No Lives With: Alone Lives Where: Home Infectious screening In the last 2 months have you had wt loss of >10#?: NO Have you had fever, night sweats or hemotysis?: No Have you traveled outside the country in the last 6 months?: No Isolation: Standard ROS Review of Systems Constitutional: See HPI, Weakness and Fatigue; negative Fever Eyes: No Symptoms Reported and See HPI; negative Blurred Vision ENTM: See HPI and Nose Congestion; negative Nose Discharge Respiratoy: See HPI, Productive Cough, Short of Breath and Wheezing Cardiovascular: Chest Pain Gastrointestinal/Abdominal: See HPI and Other (ABDOMINAL DISTENSION.); negative Abdominal Pain, Diarrhea, Nausea and Vomiting Genitourinary: See HPI and Other (DECREASE URINE OUTPUT.); negative Dysuria and Hematuria Neurological: See HPI and Weakness; negative Headache and Dizziness Musculoskeletal: See HPI, Back Pain and Muscle Pain Integumentary: See HPI and Other (SWELLING OF EXTREMITIES.); negative Change in Color, Rash and Juandice Hematologic/Lymphatic: See HPI, Easy Bleeding and Easy Bruising Endocrine: No Symptoms Reported, See HPI and Other; negative Increased Thirst and Increased Urine Psychiatric: No Symptoms Reported and See HPI All Other Systems: Reviewed and Negative PE Vital Signs Vitals: Temperature 98.0 F Pulse Rate [Left Radial] 76 Pulse Rate 74 Respiratory Rate 17 Blood Pressure [Right Arm] 155/71 Blood Pressure 157/72 O2 Sat by Pulse Oximetry 100 General Limitations: No Limitations General Appearance: Alert and In Distress Head Head Exam: Other (FACE PUFFY.) Eyes Eye exam: Normal Appearance and PERRL; negative Scleral Icterus and Conjunctival Injection ENT ENT Exam: Normal Exam, Normal Oropharynx, Normal External Ear Exam and TM's Normal Bilaterally Neck Neck Exam: Normal Inspection and Trachea Midline; negative Tenderness Chest Chest Inspection: Normal Inspection and Symmetric Chest Wall Rise; negative Tenderness Respiratory Respiratory Exam: Accessory Muscle Use and Respiratory Distress; negative Chest Wall Tenderness Respiratory Exam: Bilateral: Wheezing and Bilateral: Rhonchi Cardiovascular Cardiovascular Exam: Normal Rhythm, Normal Heart Sounds and +S3; negative Systolic Murmur and Diastolic Murmur Abdominal Exam Abdominal Exam: Normal Bowel Sounds, Soft and Distention Extremities Extremities Exam: Normal Capillary Refill and Edema Back Back Exam: Normal Inspection and Paraspinal Tenderness Neurologic Neurological Exam: Alert and Oriented X3; negative Motor Sensory Deficit Psychiatric Psychiatric Exam: Normal Affect and Normal Mood Skin Skin Exam: Other (GENERALIZED SWELLING.) MDM Additional Information Obtained Additional Information Obtained From: Old Records Differential Diagnosis Differential Diagnosis: Bronchitis, CHF, COPD, Hyponatremia, Mycardial Infarction, Pneumonia, Pneumothorax and Respiratory Insufficiency Differential Diagnosis Comment:: CHRONIC RENAL FAILURE. COURSE Treatment Treatment: SEE ORDERS. 40MG IV LASIX IN ER. NO URINE OUT PUT NOTED. LASIX 80MG IV , VALERIO CATH AND 1000CC URINE NOTED. WILL ADMIT FOR FURTHER MANAGEMENT. Reevaluation 1st: Improved (SOB IMPROVING IN ER.) Consultation Consultation Comments: DISCUSSED PATIENT WITH DR. MENDOZA. SHE WILL ADMIT PATIENT. Education/Counseling Education/Counseling: Patient Educated On: Diagnosis ROR Labs Reviewed Laboratory Results Reviewed?: Yes Result Diagrams: 08 00:39 08 00:39 Laboratory: WBC 9.2 X10^3/uL (3.6-10.0) 03/27/21 00:39 RBC 4.13 X10^6/uL (3.5-5.4) 03/27/21 00:39 Hgb 9.1 g/dL (12.0-16.0) L 03/27/21 00:39 Hct 28.9 % (36.0-47.0) L 03/27/21 00:39 MCV 69.9 fL (80.0-100.0) L 03/27/21 00:39 MCH 22.1 pg (27.0-34.0) L 03/27/21 00:39 MCHC 31.7 g/dL (33.0-35.0) L 03/27/21 00:39 RDW 15.9 % (11.6-16.5) 03/27/21 00:39 Plt Count 340 X10^3/uL (150.0-450.0) 03/27/21 00:39 Plt Count Comment Adequate (ADEQUATE) 03/27/21 00:39 MPV 8.6 fL (7.4-11.0) 03/27/21 00:39 Neut % (Auto) 79.2 % (42.0-75.0) H 03/27/21 00:39 Lymph % (Auto) 12.9 % (21.0-51.0) L 03/27/21 00:39 [place] % (Auto) 3.3 % (0.0-13.0) 03/27/21 00:39 Eos % (Auto) 3.4 % (0.9-2.9) H 03/27/21 00:39 Baso % (Auto) 1.2 % (0.2-1.0) H 03/27/21 00:39 Neut # (Auto) 7.3 x10^3/uL (2.2-4.8) H 03/27/21 00:39 Lymph # (Auto) 1.2 X10^3/uL (1.3-2.9) L 03/27/21 00:39 [place] # (Auto) 0.3 x10^3/uL (0.3-0.8) 03/27/21 00:39 Eos # (Auto) 0.3 x10^3/uL (0.0-0.2) H 03/27/21 00:39 Baso # (Auto) 0.1 X10^3/uL (0.0-0.1) 03/27/21 00:39 Absolute Nucleated RBC 0.1 /100WBC 03/27/21 00:39 Plt Morphology Comment Normal (NORMAL) 03/27/21 00:39 RBC Morphology Abnormal (NORMAL) A 03/27/21 00:39 Microcytosis 1+ A 03/27/21 00:39 Sodium 135 mmol/L (136-145) L 03/27/21 00:39 Corrected Sodium 142 mmol/L (136-145) 03/27/21 00:39 Potassium 4.2 mmol/L (3.5-5.1) 03/27/21 00:39 Chloride 101 mmol/L (98-107) 03/27/21 00:39 Carbon Dioxide 24.1 mmol/L (21-32) 03/27/21 00:39 BUN 58 mg/dL (7-18) H 03/27/21 00:39 Creatinine 4.09 mg/dL (0.55-1.02) H 03/27/21 00:39 Est GFR (MDRD) Af Amer 15 (>60) L 03/27/21 00:39 Est GFR (MDRD) Non-Af 12 (>60) L 03/27/21 00:39 Glucose 390 mg/dL (65-99) H 03/27/21 00:39 Calcium 8.0 mg/dL (8.5-10.1) L 03/27/21 00:39 Corrected Calcium 9.5 mg/dL (8.5-10.1) 03/27/21 00:39 Total Bilirubin 0.50 mg/dL (0.2-1.0) 03/27/21 00:39 AST 12 Units/L (15-37) L 03/27/21 00:39 ALT 13 Units/L (12-78) 03/27/21 00:39 Alkaline Phosphatase 127 Units/L (46-116) H 03/27/21 00:39 Creatine Kinase 193 Units/L (26-192) H 03/27/21 00:39 CK-MB (CK-2) 4.1 ng/mL (0-4.0) H 03/27/21 00:39 CK/CKMB % Calc 2.1 % (<4) 03/27/21 00:39 Troponin I < 0.02 ng/mL (0-1.5) 03/27/21 00:39 B-Natriuretic Peptide 544 pg/mL (0-79) H* 03/27/21 00:39 Total Protein 7.1 g/dL (6.4-8.2) 03/27/21 00:39 Albumin 2.1 g/dL (3.4-5.0) L 03/27/21 00:39 Globulin 5.0 g/dL (2.5-4.5) H 03/27/21 00:39 Albumin/Globulin Ratio 0.4 Ratio (1.1-2.1) L 03/27/21 00:39 Specimen Type Catherized urine 03/27/21 05:53 Urine Color Straw (YELLOW) 03/27/21 05:53 Urine Appearance Clear (CLEAR) 03/27/21 05:53 Urine pH 6.5 (5.0 - 8.0) 03/27/21 05:53 Ur Specific Cost 1.015 (1.000-1.030) 03/27/21 05:53 Urine Protein 4+ (NEGATIVE) 03/27/21 05:53 Urine Glucose (UA) 4+ (NEGATIVE) 03/27/21 05:53 Urine Ketones Negative (NEGATIVE) 03/27/21 05:53 Urine Occult Blood 1+ (NEGATIVE) 03/27/21 05:53 Urine Nitrite Negative (NEGATIVE) 03/27/21 05:53 Urine Bilirubin Negative (NEGATIVE) 03/27/21 05:53 Urine Urobilinogen Normal (NORMAL) 03/27/21 05:53 Ur Leukocyte Esterase Negative (NEGATIVE) 03/27/21 05:53 Urine RBC 5-10 /HPF (0-3) A 03/27/21 05:53 Urine WBC 0-2 /HPF (0-5) 03/27/21 05:53 Ur Squamous Epith Cells Moderate /HPF (NEGATIVE) 03/27/21 05:53 Urine Bacteria 1+ /HPF (NEGATIVE) 03/27/21 05:53 Urine Mucus Few /HPF (NEGATIVE) 03/27/21 05:53 Ur Culture Indicated? No/not indicated 03/27/21 05:53 SARS-CoV-2 (PCR) Negative (NEGATIVE) 03/27/21 06:30 Influenza Type A (PCR) Negative (NEGATIVE) 03/27/21 06:30 Influenza Type B (PCR) Negative (NEGATIVE) 03/27/21 06:30 RSV (PCR) Negative (NEGATIVE) 03/27/21 06:30 XRAY XRAY Interpreted by: Radiologist (REPORT NOTED AND DISCUSSED WITH PATIENT.) and Self EKG Rate: 80 [place]: Normal Rhythm: NSR Block: None Hypertrophy: None ST: Lat and Ischemia Opioid Opioid Risk Tool Age (Jose box if 16-45): No History of Preadolescent Sexual Abuse: No Total: 0 Total Score Risk Category: Low Risk Copyright: Alberto PENA predicting aberrant behaviors Diagnosis Discharge Problem: Hyperglycemia CHF (congestive heart failure) Qualifiers: Heart failure type: combined systolic and diastolic Heart failure chronicity: acute on chronic Qualified Code(s): I50.43 - Acute on chronic combined systolic (congestive) and diastolic (congestive) heart failure Anemia Qualifiers: Anemia type: due to chronic kidney disease Chronic kidney disease stage: stage 4 (severe) Qualified Code(s): N18.4 - Chronic kidney disease, stage 4 (severe) Renal failure (ARF), acute on chronic Qualifiers: Acute renal failure type: unspecified Chronic kidney disease stage: stage 4 (severe) Qualified Code(s): N17.9 - Acute kidney failure, unspecified Instructions Forms: Precautions for COVID19 Patient Portal Social Distancing
[2021-03-27 00:53] LABS: BASOPHILS # (AUTO) 0.1 X10^3/uL (0.0-0.1); BASOPHILS % (AUTO) 1.2 % (0.2-1.0); EOSINOPHILS # (AUTO) 0.3 x10^3/uL (0.0-0.2); EOSINOPHILS % (AUTO) 3.4 % (0.9-2.9); HEMATOCRIT 28.9 % (36.0-47.0); HEMOGLOBIN 9.1 g/dL (12.0-16.0); LYMPHOCYTES # (AUTO) 1.2 X10^3/uL (1.3-2.9); LYMPHOCYTES % (AUTO) 12.9 % (21.0-51.0); MEAN CORPUSCULAR HEMOGLOBIN 22.1 pg (27.0-34.0); MEAN CORPUSCULAR HGB CONC 31.7 g/dL (33.0-35.0); MEAN CORPUSCULAR VOLUME 69.9 fL (80.0-100.0); MEAN PLATELET VOLUME 8.6 fL (7.4-11.0); MONOCYTES # (AUTO) 0.3 x10^3/uL (0.3-0.8); MONOCYTES % (AUTO) 3.3 % (0.0-13.0); NEUTROPHILS # (AUTO) 7.3 x10^3/uL (2.2-4.8); NEUTROPHILS % (AUTO) 79.2 % (42.0-75.0); PLATELET COUNT 340 X10^3/uL (150.0-450.0); RED BLOOD COUNT 4.13 X10^6/uL (3.5-5.4); RED CELL DISTRIBUTION WIDTH 15.9 % (11.6-16.5); WHITE BLOOD COUNT 9.2 X10^3/uL (3.6-10.0)
[2021-03-27 01:02] LABS: ALBUMIN 2.1 g/dL (3.4-5.0); CARBON DIOXIDE 24.1 mmol/L (21-32); COR CA(FOR HYPOALB) 9.5 mg/dL (8.5-10.1); CREATININE 4.09 mg/dL (0.55-1.02); TOTAL PROTEIN 7.1 g/dL (6.4-8.2)
[2021-03-27] MEDS ORDERED: LASIX IVP ONE ×3 (01:30→06:01)
[2021-03-27 02:00] LABS: MICROCYTOSIS 1+; PLATELET MORPHOLOGY COMMENT NORMAL (NORMAL)
[2021-03-27 02:12] LABS: CKMB % 2.1 % (<4); CREATINE KINASE 193 Units/L (26-192); TROPONIN I < 0.02 ng/mL (0-1.5)
[2021-03-27 02:14] LABS: CREATINE KINASE MB 4.1 ng/mL (0-4.0)
--- NOTE | 2021-03-27 03:40 | RAD ---
PROCEDURE: Chest X-ray 1 View .HISTORY: Dyspnea.TECHNIQUE: AP view .COMPARISON: 12/15/2020.TECHNICAL QUALITY: Satisfactory .FINDINGS:Unchanged cardiomegaly.Mediastinum and hilar regions show no masses or lymphadenopathy .Increased central vascularity.Consolidation both lung barboza probably related to edema with no pleural fluid or pneumothorax.No acute bony abnormality .IMPRESSION:Congestive heart failure.Electronically signed by: Filiberto Carranza (Mar 27, 2021 03:38:39)
[2021-03-27 06:04] LABS: BILIRUBIN,URINE NEGATIVE (NEGATIVE); BLOOD/HEMOGLOBIN,URINE 1+ (NEGATIVE); GLUCOSE, URINE 4+ (NEGATIVE); KETONES,URINE NEGATIVE (NEGATIVE); LEUKOCYTE ESTERASE ,URINE NEGATIVE (NEGATIVE); NITRITES,URINE NEGATIVE (NEGATIVE); PH,URINE 6.5 (5.0 - 8.0); PROTEIN,URINE 4+ (NEGATIVE); UROBILINOGEN,URINE NORMAL (NORMAL)
[2021-03-27] MEDS: LASIX IVP ONE ×2 (06:08→06:10)
[2021-03-27 06:30] LABS: APPEARANCE,URINE CLEAR (CLEAR); BACTERIA,URINE 1+ /HPF (NEGATIVE); COLOR,URINE STRAW (YELLOW); SQUAMOUS EPITHELIAL CELL,UR MODERATE /HPF (NEGATIVE)
[2021-03-27 06:31] LABS: MUCUS,URINE FEW /HPF (NEGATIVE)
[2021-03-27 12:03] LABS: CKMB % 2.4 % (<4); CREATINE KINASE 133 Units/L (26-192); CREATINE KINASE MB 3.2 ng/mL (0-4.0); TROPONIN I < 0.02 ng/mL (0-1.5)
[2021-03-27 12:20] VITALS: BMI 41.1
--- NOTE | 2021-03-27 12:35 | DR.H&P ---
H&P History & Physical for Day of: H&P Date: 03/27/21 Chief Complaint Chief Complaint: Chest pain, shortness of breath Edema Allergies Allergies Allergy/AdvReac Type Severity Reaction Status Date / Time No Known Drug Allergies Allergy Verified 04/25/20 10:58 History of Present Illness History of Present Illness: Pt is a 45 year old female past medical history CHF, Hypertension, Diabetes, ESRD, presenting with worsening chest pain, shortness of breath, and generalized edema. Pt states symptoms have been gradually getting worse over the past few days. She does have end stage renal disease and is scheduled for fistula placement next week to soon begin hemodialysis. On examination patient does have bilateral pitting edema 3+ in lower extremities. Labs/imaging: Wbc 9.2, Hgb 9.1, Plt 340, Na 135, K 4.2, Creatinine 4.09, Glucose 390, BNP 544, Troponin negative, UA negative, COVID-19 negative, CXR: Unchanged cardiomegaly. Increased central vascularity. Consolidation both lung barboza probably related to edema with no pleural fluid or pneumothorax. She has had Echo this year that showed EF 70%. Pt was given IV Lasix 40mg and 80mg in the ED. Urinary catheter placed, over 1L urinary output collected. Will order serial cardiac enzymes, continue diuresis with IV Lasix. Restart home medications. Continue to monitor and follow up labs/imaging in the morning. Past Medical History Past Medical History: CHF, Coronary Artery Disease, Diabetes, Hypertension, [place] and Renal Disease Past Surgical History Surgical History: Appendectomy and [employer] PROCESS Surgery Family History Family Medical History: Diabetes Mellitus, Cancer and Hypertension Social History Does any household member use tobacco: No Alcohol Use: None Medications Home Medications: No Known Drug Allergies Allergy (Verified 04/25/20 10:58) Labs Result Diagrams: 03/27/21 00:39 03/27/21 00:39 Labs: Laboratory WBC 9.2 X10^3/uL (3.6-10.0) 03/27/21 00:39 RBC 4.13 X10^6/uL (3.5-5.4) 03/27/21 00:39 Hgb 9.1 g/dL (12.0-16.0) L 03/27/21 00:39 Hct 28.9 % (36.0-47.0) L 03/27/21 00:39 MCV 69.9 fL (80.0-100.0) L 03/27/21 00:39 MCH 22.1 pg (27.0-34.0) L 03/27/21 00:39 MCHC 31.7 g/dL (33.0-35.0) L 03/27/21 00:39 RDW 15.9 % (11.6-16.5) 03/27/21 00:39 Plt Count 340 X10^3/uL (150.0-450.0) 03/27/21 00:39 Plt Count Comment Adequate (ADEQUATE) 03/27/21 00:39 MPV 8.6 fL (7.4-11.0) 03/27/21 00:39 Neut % (Auto) 79.2 % (42.0-75.0) H 03/27/21 00:39 Lymph % (Auto) 12.9 % (21.0-51.0) L 03/27/21 00:39 [place] % (Auto) 3.3 % (0.0-13.0) 03/27/21 00:39 Eos % (Auto) 3.4 % (0.9-2.9) H 03/27/21 00:39 Baso % (Auto) 1.2 % (0.2-1.0) H 03/27/21 00:39 Neut # (Auto) 7.3 x10^3/uL (2.2-4.8) H 03/27/21 00:39 Lymph # (Auto) 1.2 X10^3/uL (1.3-2.9) L 03/27/21 00:39 [place] # (Auto) 0.3 x10^3/uL (0.3-0.8) 03/27/21 00:39 Eos # (Auto) 0.3 x10^3/uL (0.0-0.2) H 03/27/21 00:39 Baso # (Auto) 0.1 X10^3/uL (0.0-0.1) 03/27/21 00:39 Absolute Nucleated RBC 0.1 /100WBC 03/27/21 00:39 Plt Morphology Comment Normal (NORMAL) 03/27/21 00:39 RBC Morphology Abnormal (NORMAL) A 03/27/21 00:39 Microcytosis 1+ A 03/27/21 00:39 Sodium 135 mmol/L (136-145) L 03/27/21 00:39 Corrected Sodium 142 mmol/L (136-145) 03/27/21 00:39 Potassium 4.2 mmol/L (3.5-5.1) 03/27/21 00:39 Chloride 101 mmol/L (98-107) 03/27/21 00:39 Carbon Dioxide 24.1 mmol/L (21-32) 03/27/21 00:39 BUN 58 mg/dL (7-18) H 03/27/21 00:39 Creatinine 4.09 mg/dL (0.55-1.02) H 03/27/21 00:39 Est GFR (MDRD) Af Amer 15 (>60) L 03/27/21 00:39 Est GFR (MDRD) Non-Af 12 (>60) L 03/27/21 00:39 Glucose 390 mg/dL (65-99) H 03/27/21 00:39 Calcium 8.0 mg/dL (8.5-10.1) L 03/27/21 00:39 Corrected Calcium 9.5 mg/dL (8.5-10.1) 03/27/21 00:39 Total Bilirubin 0.50 mg/dL (0.2-1.0) 03/27/21 00:39 AST 12 Units/L (15-37) L 03/27/21 00:39 ALT 13 Units/L (12-78) 03/27/21 00:39 Alkaline Phosphatase 127 Units/L (46-116) H 03/27/21 00:39 Creatine Kinase 133 Units/L (26-192) 03/27/21 11:03 CK-MB (CK-2) 3.2 ng/mL (0-4.0) 03/27/21 11:03 CK/CKMB % Calc 2.4 % (<4) 03/27/21 11:03 Troponin I < 0.02 ng/mL (0-1.5) 03/27/21 11:03 B-Natriuretic Peptide 544 pg/mL (0-79) H* 03/27/21 00:39 Total Protein 7.1 g/dL (6.4-8.2) 03/27/21 00:39 Albumin 2.1 g/dL (3.4-5.0) L 03/27/21 00:39 Globulin 5.0 g/dL (2.5-4.5) H 03/27/21 00:39 Albumin/Globulin Ratio 0.4 Ratio (1.1-2.1) L 03/27/21 00:39 Specimen Type Catherized urine 03/27/21 05:53 Urine Color Straw (YELLOW) 03/27/21 05:53 Urine Appearance Clear (CLEAR) 03/27/21 05:53 Urine pH 6.5 (5.0 - 8.0) 03/27/21 05:53 Ur Specific [place] 1.015 (1.000-1.030) 03/27/21 05:53 Urine Protein 4+ (NEGATIVE) 03/27/21 05:53 Urine Glucose (UA) 4+ (NEGATIVE) 03/27/21 05:53 Urine Ketones Negative (NEGATIVE) 03/27/21 05:53 Urine Occult Blood 1+ (NEGATIVE) 03/27/21 05:53 Urine Nitrite Negative (NEGATIVE) 03/27/21 05:53 Urine Bilirubin Negative (NEGATIVE) 03/27/21 05:53 Urine Urobilinogen Normal (NORMAL) 03/27/21 05:53 Ur Leukocyte Esterase Negative (NEGATIVE) 03/27/21 05:53 Urine RBC 5-10 /HPF (0-3) A 03/27/21 05:53 Urine WBC 0-2 /HPF (0-5) 03/27/21 05:53 Ur Squamous Epith Cells Moderate /HPF (NEGATIVE) 03/27/21 05:53 Urine Bacteria 1+ /HPF (NEGATIVE) 03/27/21 05:53 Urine Mucus Few /HPF (NEGATIVE) 03/27/21 05:53 Ur Culture Indicated? No/not indicated 03/27/21 05:53 SARS-CoV-2 (PCR) Negative (NEGATIVE) 03/27/21 06:30 Influenza Type A (PCR) Negative (NEGATIVE) 03/27/21 06:30 Influenza Type B (PCR) Negative (NEGATIVE) 03/27/21 06:30 RSV (PCR) Negative (NEGATIVE) 03/27/21 06:30 Review of Systems Constitutional: Weakness Eyes: No Symptoms Reported ENT: No Symptoms Reported Respiratory: Shortness of Breath Cardiovascular: Chest Pain and Edema Gastrointestinal: No Symptoms Reported Genitourinary: No Symptoms Reported Musculoskeletal: No Symptoms Reported Skin: No Symptoms Reported Neurological: No Symptoms Reported Physical Exam Vital Signs: Temperature 98.6 F Pulse Rate [Left Radial] 80 Pulse Rate 74 Respiratory Rate 20 Blood Pressure [Right Arm] 190/84 Blood Pressure 157/72 O2 Sat by Pulse Oximetry 100 Oriented: Normal Eyes: Normal Ear: Normal Nose: Normal Throat: Normal Respiratory: RLL Rales and LLL Rales Cardiovascular: Normal : Normal Auscultation: Bowel Sounds: Normal Palpation: Normal Tenderness: Normal Skin: Normal Musculoskeletal: Swelling (3+ pitting BLE) Psychiatric: Normal Mood Description: Calm and Appropriate Affect: Normal Speech Pattern: Clear and Appropriate Assessment/Plan (1) CHF exacerbation: Status: Acute Plan: IV Lasix, strict I/O (2) End stage renal disease: Status: Acute (3) Chest pain, rule out acute myocardial infarction: Status: Acute Review H&P Reviewed: Yes Patient was examined?: Yes
[2021-03-27] MEDS: APRESOLINE TAB 25 MG PO SCH ×2 (14:48→21:00)
[2021-03-27] MEDS: LASIX PO SCH (16:49)
[2021-03-27] MEDS: HumuLIN R SUBCUT PRN ×2 (17:03→20:59)
[2021-03-27 18:23] LABS: CKMB % 2.2 % (<4); CREATINE KINASE 129 Units/L (26-192); CREATINE KINASE MB 2.8 ng/mL (0-4.0); TROPONIN I < 0.02 ng/mL (0-1.5)
[2021-03-27] MEDS ORDERED: MORPHINE SULFATE INJ 2 MG INJ IVP ONE (19:28)
[2021-03-27 20:34] LABS: CKMB % 2.1 % (<4); CREATINE KINASE 125 Units/L (26-192); CREATINE KINASE MB 2.6 ng/mL (0-4.0); TROPONIN I < 0.02 ng/mL (0-1.5)
[2021-03-27] MEDS: SNACK - Diabetic Appropriate PO SCH ×2 (20:58→20:59)
[2021-03-27] MEDS: LANTUS SC SCH (21:00)
[2021-03-27] MEDS: LIPITOR TAB 20 MG PO SCH (21:00)
[2021-03-28] MEDS: APRESOLINE TAB 25 MG PO SCH ×3 (05:42→21:05)
--- NOTE | 2021-03-28 06:01 | RAD ---
HISTORYCHF HX: CHF, HTN, ASTHMA, DM SX: APPENDECTOMYSTUDYCHEST, 1 [id number] is stable enlargement of the cardiac silhouette. Previously seen pulmonary edema persists but appears improved since prior. No definite acute alveolar infiltrate or significant effusion. No pneumothorax.IMPRESSIONStable cardiomegaly with persistent but improved pulmonary edema.Electronically signed by: JERRY BECK (Mar 28, 2021 05:59:12)
[2021-03-28 06:24] LABS: BASOPHILS # (AUTO) 0.1 X10^3/uL (0.0-0.1); BASOPHILS % (AUTO) 1.2 % (0.2-1.0); EOSINOPHILS # (AUTO) 0.3 x10^3/uL (0.0-0.2); EOSINOPHILS % (AUTO) 4.1 % (0.9-2.9); HEMATOCRIT 27.9 % (36.0-47.0); HEMOGLOBIN 8.8 g/dL (12.0-16.0); LYMPHOCYTES # (AUTO) 0.8 X10^3/uL (1.3-2.9); LYMPHOCYTES % (AUTO) 10.6 % (21.0-51.0); MEAN CORPUSCULAR HEMOGLOBIN 21.9 pg (27.0-34.0); MEAN CORPUSCULAR HGB CONC 31.5 g/dL (33.0-35.0); MEAN CORPUSCULAR VOLUME 69.6 fL (80.0-100.0); MEAN PLATELET VOLUME 8.5 fL (7.4-11.0); MONOCYTES # (AUTO) 0.4 x10^3/uL (0.3-0.8); MONOCYTES % (AUTO) 5.4 % (0.0-13.0); NEUTROPHILS % (AUTO) 78.7 % (42.0-75.0); PLATELET COUNT 318 X10^3/uL (150.0-450.0); RED BLOOD COUNT 4.01 X10^6/uL (3.5-5.4); WHITE BLOOD COUNT 7.6 X10^3/uL (3.6-10.0)
[2021-03-28 06:37] LABS: CALCIUM 8.3 mg/dL (8.5-10.1); CARBON DIOXIDE 27.2 mmol/L (21-32); COR CA(FOR HYPOALB) 9.9 mg/dL (8.5-10.1); CREATININE 4.15 mg/dL (0.55-1.02); MAGNESIUM 2.2 mg/dL (1.7-2.9); TOTAL PROTEIN 6.6 g/dL (6.4-8.2)
[2021-03-28 07:46] LABS: HYPOCHROMASIA 1+; PLATELET MORPHOLOGY COMMENT NORMAL (NORMAL)
[2021-03-28 07:47] LABS: ANISOCYTOSIS SLIGHT; MICROCYTOSIS 1+
[2021-03-28] MEDS: COREG TAB 25 MG PO SCH (08:32)
[2021-03-28] MEDS: PLAVIX PO SCH (08:32)
[2021-03-28] MEDS: LASIX PO SCH ×2 (08:33→16:38)
[2021-03-28] MEDS: LANTUS SC SCH ×2 (08:34→21:05)
[2021-03-28] MEDS ORDERED: LASIX IVP ONE (09:47)
[2021-03-28] MEDS: HumuLIN R SUBCUT PRN ×3 (11:42→21:05)
--- NOTE | 2021-03-28 13:04 | PCM.PROG ---
Progress Note Progress Note for Day of Date of Exam: 03/28/21 Subjective Subjective: Pt is a 45 year old female past medical history CHF, Hypertension, Diabetes, ESRD, admitted for CHF exacerbation and ESRD. This morning patient does feel some improvement of shortness of breath. Net urinary output yesterday -2850. She does have end stage renal disease an is scheduled for fistula placement next week to soon begin hemodialysis. Labs/imaging: Wbc 7.6 Hgb 8.8, Plt 318, Na 140, K 3.6, Creatinine 4.15, Glucose 201, CXR: Stable cardiomegaly with persistent but improved pulmonary edema. She has had Echo this year that showed EF 70%. Will order IV Lasix 40mg x 1 dose, she also has her home lasix 40mg po bid scheduled to take today. Edema improving. Urinary catheter placed, strict I/Os. Serial cardiac enzymes negative. Otherwise will continue with current treatment plan. Continue to monitor and follow up labs/imaging in the morning. Past Medical Family Social History Past Med/Fam/Surg Hx: No changes since H&P Allergies: Allergies No Known Drug Allergies Allergy (Verified 04/25/20 10:58) Review of Systems ROS: No change since H&P Vital Signs and I&O's Vital Signs: Temperature 98.3 F Pulse Rate [Left Radial] 74 Pulse Rate 74 Respiratory Rate 18 Blood Pressure [Left Arm] 133/65 Blood Pressure [Right Arm] 186/91 Blood Pressure 157/72 O2 Sat by Pulse Oximetry 98 Intake and Output: Intake & Output 03/25/21 03/26/21 03/27/21 03/28/21 23:59 23:59 23:59 23:59 Intake Total 1340 / 1340 510 / 510 Output Total 4100 / 4100 600 / 600 Balance -2760 / -2760 -90 / -90 Physical Exam Oriented: Normal Eyes: Normal Ear: Normal Nose: Normal Throat: Normal Respiratory: Diminished and Rales Cardiovascular: Normal : Normal Auscultation: Bowel Sounds: Normal Tenderness: Normal Skin: Normal Musculoskeletal: Swelling (2+ pitting BLE) Psychiatric: Normal Mood Description: Calm and Appropriate Affect: Normal Speech Pattern: Clear and Appropriate Laboratory and Diagnostics Result Diagrams: 03/28/21 05:52 03/28/21 05:52 Labs: Laboratory WBC 7.6 X10^3/uL (3.6-10.0) 03/28/21 05:52 RBC 4.01 X10^6/uL (3.5-5.4) 03/28/21 05:52 Hgb 8.8 g/dL (12.0-16.0) L 03/28/21 05:52 Hct 27.9 % (36.0-47.0) L 03/28/21 05:52 MCV 69.6 fL (80.0-100.0) L 03/28/21 05:52 MCH 21.9 pg (27.0-34.0) L 03/28/21 05:52 MCHC 31.5 g/dL (33.0-35.0) L 03/28/21 05:52 RDW 16.0 % (11.6-16.5) 03/28/21 05:52 Plt Count 318 X10^3/uL (150.0-450.0) 03/28/21 05:52 Plt Count Comment Adequate (ADEQUATE) 03/28/21 05:52 MPV 8.5 fL (7.4-11.0) 03/28/21 05:52 Neut % (Auto) 78.7 % (42.0-75.0) H 03/28/21 05:52 Lymph % (Auto) 10.6 % (21.0-51.0) L 03/28/21 05:52 [place] % (Auto) 5.4 % (0.0-13.0) 03/28/21 05:52 Eos % (Auto) 4.1 % (0.9-2.9) H 03/28/21 05:52 Baso % (Auto) 1.2 % (0.2-1.0) H 03/28/21 05:52 Neut # (Auto) 6.0 x10^3/uL (2.2-4.8) H 03/28/21 05:52 Lymph # (Auto) 0.8 X10^3/uL (1.3-2.9) L 03/28/21 05:52 [place] # (Auto) 0.4 x10^3/uL (0.3-0.8) 03/28/21 05:52 Eos # (Auto) 0.3 x10^3/uL (0.0-0.2) H 03/28/21 05:52 Baso # (Auto) 0.1 X10^3/uL (0.0-0.1) 03/28/21 05:52 Absolute Nucleated RBC 0.1 /100WBC 03/28/21 05:52 Plt Morphology Comment Normal (NORMAL) 03/28/21 05:52 RBC Morphology Abnormal (NORMAL) A 03/28/21 05:52 Hypochromasia 1+ A 03/28/21 05:52 Anisocytosis Slight A 03/28/21 05:52 Microcytosis 1+ A 03/28/21 05:52 PT 12.2 SECONDS (11.8-14.3) 03/28/21 05:52 INR Target Range - 03/28/21 05:52 INR 0.95 (0.8-1.3) 03/28/21 05:52 APTT 32.2 SECONDS (22.9-36.5) 03/28/21 05:52 PTT Comment - 03/28/21 05:52 Sodium 140 mmol/L (136-145) 03/28/21 05:52 Corrected Sodium 142 mmol/L (136-145) 03/28/21 05:52 Potassium 3.6 mmol/L (3.5-5.1) 03/28/21 05:52 Chloride 105 mmol/L (98-107) 03/28/21 05:52 Carbon Dioxide 27.2 mmol/L (21-32) 03/28/21 05:52 BUN 58 mg/dL (7-18) H 03/28/21 05:52 Creatinine 4.15 mg/dL (0.55-1.02) H 03/28/21 05:52 Est GFR (MDRD) Af Amer 15 (>60) L 03/28/21 05:52 Est GFR (MDRD) Non-Af 12 (>60) L 03/28/21 05:52 Glucose 201 mg/dL (65-99) H 03/28/21 05:52 POC Glucose (mg/dL) 241 mg/dL (65-99) H 03/28/21 11:20 Calcium 8.3 mg/dL (8.5-10.1) L 03/28/21 05:52 Corrected Calcium 9.9 mg/dL (8.5-10.1) 03/28/21 05:52 Magnesium 2.2 mg/dL (1.7-2.9) 03/28/21 05:52 Total Bilirubin 0.10 mg/dL (0.2-1.0) L 03/28/21 05:52 AST 11 Units/L (15-37) L 03/28/21 05:52 ALT 13 Units/L (12-78) 03/28/21 05:52 Alkaline Phosphatase 99 Units/L (46-116) 03/28/21 05:52 Creatine Kinase 125 Units/L (26-192) 03/27/21 19:54 CK-MB (CK-2) 2.6 ng/mL (0-4.0) 03/27/21 19:54 CK/CKMB % Calc 2.1 % (<4) 03/27/21 19:54 Troponin I < 0.02 ng/mL (0-1.5) 03/27/21 19:54 B-Natriuretic Peptide 541 pg/mL (0-79) H* 03/27/21 19:54 Total Protein 6.6 g/dL (6.4-8.2) 03/28/21 05:52 Albumin 2.0 g/dL (3.4-5.0) L 03/28/21 05:52 Globulin 4.6 g/dL (2.5-4.5) H 03/28/21 05:52 Albumin/Globulin Ratio 0.4 Ratio (1.1-2.1) L 03/28/21 05:52 Specimen Type Catherized urine 03/27/21 05:53 Urine Color Straw (YELLOW) 03/27/21 05:53 Urine Appearance Clear (CLEAR) 03/27/21 05:53 Urine pH 6.5 (5.0 - 8.0) 03/27/21 05:53 Ur Specific [place] 1.015 (1.000-1.030) 03/27/21 05:53 Urine Protein 4+ (NEGATIVE) 03/27/21 05:53 Urine Glucose (UA) 4+ (NEGATIVE) 03/27/21 05:53 Urine Ketones Negative (NEGATIVE) 03/27/21 05:53 Urine Occult Blood 1+ (NEGATIVE) 03/27/21 05:53 Urine Nitrite Negative (NEGATIVE) 03/27/21 05:53 Urine Bilirubin Negative (NEGATIVE) 03/27/21 05:53 Urine Urobilinogen Normal (NORMAL) 03/27/21 05:53 Ur Leukocyte Esterase Negative (NEGATIVE) 03/27/21 05:53 Urine RBC 5-10 /HPF (0-3) A 03/27/21 05:53 Urine WBC 0-2 /HPF (0-5) 03/27/21 05:53 Ur Squamous Epith Cells Moderate /HPF (NEGATIVE) 03/27/21 05:53 Urine Bacteria 1+ /HPF (NEGATIVE) 03/27/21 05:53 Urine Mucus Few /HPF (NEGATIVE) 03/27/21 05:53 Ur Culture Indicated? No/not indicated 03/27/21 05:53 SARS-CoV-2 (PCR) Negative (NEGATIVE) 03/27/21 06:30 Influenza Type A (PCR) Negative (NEGATIVE) 03/27/21 06:30 Influenza Type B (PCR) Negative (NEGATIVE) 03/27/21 06:30 RSV (PCR) Negative (NEGATIVE) 03/27/21 06:30 Plan (1) CHF exacerbation: Status: Acute Plan: IV Lasix, strict I/O (2) End stage renal disease: Status: Acute (3) Chest pain, rule out acute myocardial infarction: Status: Acute
[2021-03-28] MEDS: NEURONTIN CAP 300 MG PO SCH ×2 (13:36→21:05)
[2021-03-28] MEDS: SNACK - Diabetic Appropriate PO SCH (20:59)
[2021-03-28] MEDS: LIPITOR TAB 20 MG PO SCH (21:05)
[2021-03-29] MEDS: AMBIEN PO PRN ×2 (00:15→21:30)
[2021-03-29] MEDS: APRESOLINE TAB 25 MG PO SCH ×3 (06:00→21:22)
[2021-03-29] MEDS: NEURONTIN CAP 300 MG PO SCH ×3 (06:00→21:29)
[2021-03-29 06:10] LABS: BASOPHILS # (AUTO) 0.1 X10^3/uL (0.0-0.1); BASOPHILS % (AUTO) 0.9 % (0.2-1.0); EOSINOPHILS # (AUTO) 0.2 x10^3/uL (0.0-0.2); EOSINOPHILS % (AUTO) 3.3 % (0.9-2.9); HEMATOCRIT 29.9 % (36.0-47.0); HEMOGLOBIN 9.2 g/dL (12.0-16.0); LYMPHOCYTES # (AUTO) 0.3 X10^3/uL (1.3-2.9); LYMPHOCYTES % (AUTO) 4.3 % (21.0-51.0); MEAN CORPUSCULAR HEMOGLOBIN 21.9 pg (27.0-34.0); MEAN CORPUSCULAR HGB CONC 30.9 g/dL (33.0-35.0); MEAN CORPUSCULAR VOLUME 70.9 fL (80.0-100.0); MEAN PLATELET VOLUME 8.6 fL (7.4-11.0); MONOCYTES # (AUTO) 0.3 x10^3/uL (0.3-0.8); MONOCYTES % (AUTO) 5.1 % (0.0-13.0); NEUTROPHILS # (AUTO) 5.7 x10^3/uL (2.2-4.8); NEUTROPHILS % (AUTO) 86.4 % (42.0-75.0); PLATELET COUNT 333 X10^3/uL (150.0-450.0); RED BLOOD COUNT 4.21 X10^6/uL (3.5-5.4); RED CELL DISTRIBUTION WIDTH 16.3 % (11.6-16.5); WHITE BLOOD COUNT 6.6 X10^3/uL (3.6-10.0)
--- NOTE | 2021-03-29 06:19 | RAD ---
HISTORYCongestive heart failureSTUDYChest AP [id number] remains enlarged. No definite congestive heart failure is p resent on today's examination. No acute alveolar infiltrates or pleural effusions are identified. Bon y thorax is unremarkable.IMPRESSIONCardiomegaly without congestive heart failureNo definite acute inf iltratesElectronically signed by: KING BARROSO (Mar 29, 2021 06:17:17)
[2021-03-29 06:47] LABS: PLATELET MORPHOLOGY COMMENT NORMAL (NORMAL)
[2021-03-29 06:48] LABS: HYPOCHROMASIA 1+; MICROCYTOSIS 1+
[2021-03-29 06:53] LABS: CALCIUM 8.6 mg/dL (8.5-10.1); CARBON DIOXIDE 27.3 mmol/L (21-32); COR CA(FOR HYPOALB) 10.2 mg/dL (8.5-10.1); CREATININE 4.48 mg/dL (0.55-1.02); TOTAL PROTEIN 6.9 g/dL (6.4-8.2)
[2021-03-29] MEDS: SNACK - Diabetic Appropriate PO SCH ×2 (07:27→20:30)
[2021-03-29] MEDS: COREG TAB 25 MG PO SCH (08:51)
[2021-03-29] MEDS: PLAVIX PO SCH (08:52)
[2021-03-29] MEDS: LASIX PO SCH ×2 (08:52→16:58)
[2021-03-29] MEDS: LANTUS SC SCH ×2 (08:54→21:20)
[2021-03-29] MEDS: LOVENOX INJ 30 MG SYR SC SCH (09:22)
[2021-03-29] MEDS: ULTRAM PO SCH ×2 (11:39→17:02)
--- NOTE | 2021-03-29 13:32 | PCM.PROG ---
Progress Note - Progress Note for Day of Date of Exam: 03/29/21 - Subjective Subjective: WAS ADMITTED ON 03/27/21 FOR REATMENT OF CHF EXACERBATION, END STAGE RENAL DISEASE, AND CHEST PAIN R/O AMI. SHE IS SCHEDULED FOR A FISTULA PLACEMENT SOMETIME THIS WEEK TO BEGIN HEMODIALYSIS SOON. ECHO EARLIER IN THE YEAR REVEALED AN EJECTION FRACTION OF 70%. TODAY, SHE IS ALERT AND ORIENTED, LYING IN BED ON MORNING ROUNDS. SHE REPORTS GENERALIZED ACHING AND SHORTNESS OF BREATH TODAY. ON EXAMINATION, HEART IS REGULAR IN RATE AND RHYTHM. BILATERAL LUNGS ARE NOTED WITH DIMINISHED LUNG SOUNDS THROUGHOUT. ABDOMEN IS ROUND, SOFT, AND NON-TENDER WITH NORMAL BOWEL SOUNDS NOTED IN ALL QUADRANTS. SHE CONTINUES WITH 1+ PITTING EDEMA TO BILATERAL LOWER EXTREMITIES. VALERIO CATHETER NOTED TO BEDSIDE DRAINAGE. HER VITALS THIS MORNING ARE: 98.4-88-20-100%-156/74. LABS WERE OBTAINED. ABNORMAL LAB VALUES INCLUDE THE FOLLOWING: HGB 9.2, HCT 29.9, BUN 55, CREATININE 4.48, GLUCOSE 128, AST 13, ALT 10, BNP 263, ALBUMIN 2.0, GLOBULIN 4.9. CHEST XRAY WAS OBTAINED THIS MORNING AND REVEALED: Cardiomegaly without congestive heart failure. No definite acute infiltrates. SHE IS CURRENTLY RECEIVING LASIX 40MG PO BID, HUMULIN R SLIDING SCALE, LOVENOX 30MG SC DAILY, LIPITOR 20MG PO HS, COLACE 200MG PO HS, AND HER HOME MEDICATIONS OF COREG, PLAVIX, NEURONTIN, HYDRALAZINE, LANTUS, AND AMBIEN WERE RESUMED. TODAY, WE WILL ADD TRAMADOL 50MG PO Q6H. OTHERWISE, WE PLAN TO FOLLOW UP WITH AM LABS AND CHEST XRAY AND CONTINUE TO MONITOR. TIME SPENT ON CLINICAL ASSESSMENT, REVIEWING LABS AND IMAGING, DECISION MAKING, AND DOCUMENTATION GREATER THAN 45 MINUTES. - Past Medical Family Social History Past Med/Fam/Surg Hx: No changes since H&P Allergies: Allergies No Known Drug Allergies Allergy (Verified 04/25/20 10:58) - Review of Systems ROS: No change since H&P - Vital Signs and I&O's Vital Signs: Temperature 97.9 F Pulse Rate [Left Radial] 75 Pulse Rate 74 Respiratory Rate 18 Blood Pressure [Left Arm] 130/70 Blood Pressure [Right Arm] 186/91 Blood Pressure 157/72 O2 Sat by Pulse Oximetry 100 Intake and Output: Intake & Output 03/27/21 03/28/21 03/29/21 03/30/21 11:59 11:59 11:59 11:59 Intake Total 1850 / 1850 1565 / 1565 Output Total 4700 / 4700 2850 / 2850 Balance -2850 / -2850 -1285 / -1285 - Physical Exam Oriented: Normal Eyes: Normal Ear: Normal Nose: Normal Throat: Normal Respiratory: Diminished, Rales Cardiovascular: Normal : Normal Auscultation: Bowel Sounds: Normal Palpation: Normal Tenderness: Normal Skin: Normal Musculoskeletal: Swelling (1+ PITTING EDEMA ) Psychiatric: Normal Mood Description: Calm, Appropriate Affect: Normal Speech Pattern: Clear, Appropriate - Laboratory and Diagnostics Result Diagrams: 03/29/21 05:16 03/29/21 05:16 Labs: Laboratory WBC 6.6 X10^3/uL (3.6-10.0) 03/29/21 05:16 RBC 4.21 X10^6/uL (3.5-5.4) 03/29/21 05:16 Hgb 9.2 g/dL (12.0-16.0) L 03/29/21 05:16 Hct 29.9 % (36.0-47.0) L 03/29/21 05:16 MCV 70.9 fL (80.0-100.0) L 03/29/21 05:16 MCH 21.9 pg (27.0-34.0) L 03/29/21 05:16 MCHC 30.9 g/dL (33.0-35.0) L 03/29/21 05:16 RDW 16.3 % (11.6-16.5) 03/29/21 05:16 Plt Count 333 X10^3/uL (150.0-450.0) 03/29/21 05:16 Plt Count Comment Adequate (ADEQUATE) 03/29/21 05:16 MPV 8.6 fL (7.4-11.0) 03/29/21 05:16 Neut % (Auto) 86.4 % (42.0-75.0) H 03/29/21 05:16 Lymph % (Auto) 4.3 % (21.0-51.0) L 03/29/21 05:16 [place] % (Auto) 5.1 % (0.0-13.0) 03/29/21 05:16 Eos % (Auto) 3.3 % (0.9-2.9) H 03/29/21 05:16 Baso % (Auto) 0.9 % (0.2-1.0) 03/29/21 05:16 Neut # (Auto) 5.7 x10^3/uL (2.2-4.8) H 03/29/21 05:16 Lymph # (Auto) 0.3 X10^3/uL (1.3-2.9) L 03/29/21 05:16 [place] # (Auto) 0.3 x10^3/uL (0.3-0.8) 03/29/21 05:16 Eos # (Auto) 0.2 x10^3/uL (0.0-0.2) 03/29/21 05:16 Baso # (Auto) 0.1 X10^3/uL (0.0-0.1) 03/29/21 05:16 Absolute Nucleated RBC 0.0 /100WBC 03/29/21 05:16 Plt Morphology Comment Normal (NORMAL) 03/29/21 05:16 RBC Morphology Abnormal (NORMAL) A 03/29/21 05:16 Hypochromasia 1+ A 03/29/21 05:16 Anisocytosis Slight A 03/28/21 05:52 Microcytosis 1+ A 03/29/21 05:16 PT 12.2 SECONDS (11.8-14.3) 03/28/21 05:52 INR Target Range - 03/28/21 05:52 INR 0.95 (0.8-1.3) 03/28/21 05:52 APTT 32.2 SECONDS (22.9-36.5) 03/28/21 05:52 PTT Comment - 03/28/21 05:52 Sodium 142 mmol/L (136-145) 03/29/21 05:16 Corrected Sodium 143 mmol/L (136-145) 03/29/21 05:16 Potassium 3.8 mmol/L (3.5-5.1) 03/29/21 05:16 Chloride 107 mmol/L (98-107) 03/29/21 05:16 Carbon Dioxide 27.3 mmol/L (21-32) 03/29/21 05:16 BUN 55 mg/dL (7-18) H 03/29/21 05:16 Creatinine 4.48 mg/dL (0.55-1.02) H 03/29/21 05:16 Est GFR (MDRD) Af Amer 14 (>60) L 03/29/21 05:16 Est GFR (MDRD) Non-Af 11 (>60) L 03/29/21 05:16 Glucose 128 mg/dL (65-99) H 03/29/21 05:16 POC Glucose (mg/dL) 171 mg/dL (65-99) H 03/29/21 11:20 Calcium 8.6 mg/dL (8.5-10.1) 03/29/21 05:16 Corrected Calcium 10.2 mg/dL (8.5-10.1) H 03/29/21 05:16 Magnesium 2.2 mg/dL (1.7-2.9) 03/28/21 05:52 Total Bilirubin 0.20 mg/dL (0.2-1.0) 03/29/21 05:16 AST 13 Units/L (15-37) L 03/29/21 05:16 ALT 10 Units/L (12-78) L 03/29/21 05:16 Alkaline Phosphatase 102 Units/L (46-116) 03/29/21 05:16 Creatine Kinase 125 Units/L (26-192) 03/27/21 19:54 CK-MB (CK-2) 2.6 ng/mL (0-4.0) 03/27/21 19:54 CK/CKMB % Calc 2.1 % (<4) 03/27/21 19:54 Troponin I < 0.02 ng/mL (0-1.5) 03/27/21 19:54 B-Natriuretic Peptide 263 pg/mL (0-79) H 03/29/21 05:16 Total Protein 6.9 g/dL (6.4-8.2) 03/29/21 05:16 Albumin 2.0 g/dL (3.4-5.0) L 03/29/21 05:16 Globulin 4.9 g/dL (2.5-4.5) H 03/29/21 05:16 Albumin/Globulin Ratio 0.4 Ratio (1.1-2.1) L 03/29/21 05:16 Specimen Type Catherized urine 03/27/21 05:53 Urine Color Straw (YELLOW) 03/27/21 05:53 Urine Appearance Clear (CLEAR) 03/27/21 05:53 Urine pH 6.5 (5.0 - 8.0) 03/27/21 05:53 Ur Specific [place] 1.015 (1.000-1.030) 03/27/21 05:53 Urine Protein 4+ (NEGATIVE) 03/27/21 05:53 Urine Glucose (UA) 4+ (NEGATIVE) 03/27/21 05:53 Urine Ketones Negative (NEGATIVE) 03/27/21 05:53 Urine Occult Blood 1+ (NEGATIVE) 03/27/21 05:53 Urine Nitrite Negative (NEGATIVE) 03/27/21 05:53 Urine Bilirubin Negative (NEGATIVE) 03/27/21 05:53 Urine Urobilinogen Normal (NORMAL) 03/27/21 05:53 Ur Leukocyte Esterase Negative (NEGATIVE) 03/27/21 05:53 Urine RBC 5-10 /HPF (0-3) A 03/27/21 05:53 Urine WBC 0-2 /HPF (0-5) 03/27/21 05:53 Ur Squamous Epith Cells Moderate /HPF (NEGATIVE) 03/27/21 05:53 Urine Bacteria 1+ /HPF (NEGATIVE) 03/27/21 05:53 Urine Mucus Few /HPF (NEGATIVE) 03/27/21 05:53 Ur Culture Indicated? No/not indicated 03/27/21 05:53 SARS-CoV-2 (PCR) Negative (NEGATIVE) 03/27/21 06:30 Influenza Type A (PCR) Negative (NEGATIVE) 03/27/21 06:30 Influenza Type B (PCR) Negative (NEGATIVE) 03/27/21 06:30 RSV (PCR) Negative (NEGATIVE) 03/27/21 06:30 - Plan (1) CHF (congestive heart failure) Status: Acute Qualifiers: Heart failure type: combined systolic and diastolic Heart failure chronicity: acute on chronic Qualified Code(s): I50.43 - Acute on chronic combined systolic (congestive) and diastolic (congestive) heart failure (2) Renal failure (ARF), acute on chronic Status: Acute Qualifiers: Acute renal failure type: unspecified Chronic kidney disease stage: stage 4 (severe) Qualified Code(s): N17.9 - Acute kidney failure, unspecified; N18.4 - Chronic kidney disease, stage 4 (severe) (3) Chest pain, rule out acute myocardial infarction Status: Acute
[2021-03-29] MEDS: HumuLIN R SUBCUT PRN ×2 (16:00→21:18)
[2021-03-29] MEDS ORDERED: COLACE CAP 100 MG PO SCH (21:00)
[2021-03-29] MEDS: LIPITOR TAB 20 MG PO SCH (21:21)
[2021-03-30] MEDS: ULTRAM PO SCH ×3 (05:05→05:59)
[2021-03-30] MEDS: APRESOLINE TAB 25 MG PO SCH (05:58)
[2021-03-30] MEDS: NEURONTIN CAP 300 MG PO SCH (05:58)
[2021-03-30] MEDS: HumuLIN R SUBCUT PRN (06:00)
[2021-03-30 06:22] LABS: BASOPHILS # (AUTO) 0.1 X10^3/uL (0.0-0.1); EOSINOPHILS # (AUTO) 0.2 x10^3/uL (0.0-0.2); EOSINOPHILS % (AUTO) 3.3 % (0.9-2.9); HEMATOCRIT 28.1 % (36.0-47.0); HEMOGLOBIN 8.6 g/dL (12.0-16.0); LYMPHOCYTES # (AUTO) 0.6 X10^3/uL (1.3-2.9); LYMPHOCYTES % (AUTO) 9.3 % (21.0-51.0); MEAN CORPUSCULAR HGB CONC 30.7 g/dL (33.0-35.0); MEAN CORPUSCULAR VOLUME 71.5 fL (80.0-100.0); MEAN PLATELET VOLUME 8.8 fL (7.4-11.0); MONOCYTES # (AUTO) 0.5 x10^3/uL (0.3-0.8); NEUTROPHILS # (AUTO) 5.1 x10^3/uL (2.2-4.8); NEUTROPHILS % (AUTO) 78.4 % (42.0-75.0); PLATELET COUNT 283 X10^3/uL (150.0-450.0); RED BLOOD COUNT 3.94 X10^6/uL (3.5-5.4); RED CELL DISTRIBUTION WIDTH 16.9 % (11.6-16.5); WHITE BLOOD COUNT 6.5 X10^3/uL (3.6-10.0)
[2021-03-30 06:38] LABS: ALBUMIN 1.9 g/dL (3.4-5.0); CALCIUM 8.4 mg/dL (8.5-10.1); CARBON DIOXIDE 26.8 mmol/L (21-32); COR CA(FOR HYPOALB) 10.1 mg/dL (8.5-10.1); CREATININE 4.97 mg/dL (0.55-1.02); TOTAL PROTEIN 6.7 g/dL (6.4-8.2)
[2021-03-30 07:00] LABS: ANISOCYTOSIS 1+; HYPOCHROMASIA 1+; MICROCYTOSIS 1+; PLATELET MORPHOLOGY COMMENT NORMAL (NORMAL)
[2021-03-30] MEDS: LASIX PO SCH (08:42)
[2021-03-30] MEDS: LANTUS SC SCH (08:42)
[2021-03-30] MEDS: LOVENOX INJ 30 MG SYR SC SCH (08:42)
[2021-03-30] MEDS: PLAVIX PO SCH (08:42)
[2021-03-30] MEDS: COREG TAB 25 MG PO SCH (08:42)
--- NOTE | 2021-03-30 09:53 | RAD ---
HISTORYSOBSTUDYCHEST x-ray, 1 VIEWCOMPARISONX-ray 03/29/2021FINDINGSCardiomegaly without pulmonary venous congestion. Heart size is slightly improved. No pneumothorax, focal infiltrate, or pleural effusion is seen.IMPRESSIONThere is cardiomegaly with slight improvement of heart size since prior study.Electronically signed by: Corbin Price (Mar 30, 2021 09:30:31)
[2021-03-30 09:56] VITALS: BP 134/97
[2021-03-30] MEDS ORDERED: LASIX IVP ONE (10:09)
== END 2021-03-30 11:00 | disposition home or self-care (01) ==
LOC: MED/SURG 00:01 → ER 00:01 → MED/SURG 10:21
PROVIDERS: ADMIT Internal Medicine; ATTEND Internal Medicine
DX: R94.31 Abnormal electrocardiogram [ECG] [EKG]; R06.02 Shortness of breath; N18.6 End stage renal disease; E11.22 Type 2 diabetes mellitus with diabetic chronic kidney disease; N17.8 Other acute kidney failure; I50.43 Acute on chronic combined systolic (congestive) and diastolic (congestive) heart failure; R07.89 Other chest pain; I13.2 Hypertensive heart and chronic kidney disease with heart failure and with stage 5 chronic kidney disease, or end stage renal disease; E11.65 Type 2 diabetes mellitus with hyperglycemia